=== PATIENT | female | born 1960 | race Two or more races ===

== ENCOUNTER 2017-04-14 09:52 | Outpatient (CLI) | payer MEDICARE, MEDICAID ==
[2017-04-14 10:00] VITALS: BP 131/66
[2017-04-14] MEDS ORDERED: METFORMIN HCL1000 M2 ORAL (10:55)
[2017-04-14] MEDS ORDERED: TRIHEXYPHENIDYL2 MG ORAL (10:55)
[2017-04-14] MEDS ORDERED: FLUPHENAZINE HC10 MG PO (10:55)
[2017-04-14] MEDS ORDERED: ADALAT20 MG ORAL (10:55)
[2017-04-14] MEDS ORDERED: PEPCID40 MG PO (10:55)
[2017-04-14] MEDS ORDERED: VENTOLIN HFA18 GM INH (10:55)
[2017-04-14] MEDS ORDERED: CRESTOR10 M1 ORAL (10:55)
[2017-04-14] MEDS ORDERED: OXYBUTYNIN CHLOR5 M2 PO (10:55)
[2017-04-14] MEDS ORDERED: KLONOPIN0.5 MG ORAL (10:55)
[2017-04-14] MEDS ORDERED: HYDRALAZINE HC100 MG ORAL (10:55)
[2017-04-14] MEDS ORDERED: DESVENLAFAXINE100 MG ORAL (10:55)
[2017-04-14] MEDS ORDERED: NORMODYNE200 MG ORAL (10:55)
[2017-04-14] MEDS ORDERED: GABAPENTIN300 MG ORAL (10:56)
[2017-04-14] MEDS ORDERED: DIOVAN320 MG ORAL (10:56)
--- NOTE | 2017-04-14 10:56 | GI Initial Consult Note ---
History of Present Illness General Date patient seen: Apr 14, 2017 Time patient seen: 10:41 Referring physician: FINDER Reason for Consultation: Ulcerative Colitis Present Illness HPI 57 year old female patient with history of Ulcerative colitis dx in 2002 presents today for medication rx. States she had just moved into the area and seeking a primary GI. Last colonoscopy approximately 3 years ago. She presents today with c/o of constipation vs diarrhea and episodes of rectal bleed. Denies any unintentional weight loss or changes in dietary habits. Patient is a fall risk, wheelchair use with minimal ambulation. Home Meds Reported Medications Valsartan (DIOVAN) 320 Mg Tablet, 320 MG ORAL DAILY, TAB 04/14/17 Gabapentin* (GABAPENTIN*) 300 Mg Capsule, 300 MG ORAL THREE TIMES A DAY, CAP 0 Refills 04/14/17 Labetalol HCl (Labetalol HCl) 200 Mg Tablet, 200 MG ORAL EVERY 12 HOURS, TAB 04/14/17 Metformin Hcl (METFORMIN HCL ER) 1,000 Mg Tab.er.24, 1000 MG ORAL DAILY, TAB 04/14/17 Oxybutynin Chloride (OXYBUTYNIN CHLORIDE ER) 5 Mg Tab.er.24, 5 MG PO, TAB 04/14/17 Nifedipine (Nifedipine*) 20 Mg Capsule, 90 MG ORAL EVERY 8 HOURS, CAP 04/14/17 Hydralazine Hcl* (HYDRALAZINE HCL*) 100 Mg Tablet, 100 MG ORAL EVERY 8 HOURS, TAB 04/14/17 Rosuvastatin Calcium (Crestor) 5 Mg Tablet, 10 MG ORAL DAILY, TAB 04/14/17 Famotidine (PEPCID) 40 Mg Tablet, 40 MG PO DAILY, #7 TAB 0 Refills 04/14/17 Albuterol Sulfate (VENTOLIN HFA) 18 Gm Hfa.aer.ad, 1 PUFF INH EVERY 6 HOURS, # 18 GM 0 Refills 04/14/17 Trihexyphenidyl Hcl* (ARTANE*) 2 Mg Tablet, 2 MG ORAL TWICE A DAY, TAB 04/14/17 Desvenlafaxine (DESVENLAFAXINE ER) 100 Mg Tab.er.24h, 100 MG ORAL DAILY, TAB 0 Refills 04/14/17 Fluphenazine Hcl (FLUPHENAZINE HCL) 10 Mg Tablet, 10 MG PO, TAB 04/14/17 Clonazepam* (KLONOPIN*) 0.5 Mg Tablet, 0.5 MG ORAL Q6H, #15 TAB 0 Refills 04/14/17 Allergies: Coded Allergies: Flagyl (Unverified Allergy, Severe, 04/14/17) vomiting, rash Sulfa (Sulfonamide Antibiotics) (Unverified Allergy, Severe, 04/14/17) Patient History History Provided By: Patient PMH Narrative GERD Uterine CA with hysterectomy Depression HTN Heart Disease Diverticulitis Hemorrhoids Diabetes / Epilepsy / Gout Sleep apnea Thyroid Past Surgical History: Cholecystetcomy Abdominal Hysterectomy Foot Polypectomy Family History Narrative DM Thyroid Disease HTN Social History: Reports: smoking - 1 pack daily smoker Review of Systems All Other Systems: negative except mentioned in HPI Physical Exam T 98.4 BP 131/66 P 71 93 RA WT 246.2 lbs >> denies weight loss Sp02 EP Interpretation: reviewed, normal General Appearance: well appearing, no apparent distress, alert, obese Head: normocephalic EENT: PERRL/EOMI, normal ENT inspection Neck: supple Respiratory: normal breath sounds, no respiratory distress Cardiovascular: normal rate Gastrointestinal: normal inspection, non tender, soft, normal bowel sounds, non -distended Rectal: deferred Genitourinary: no CVA tenderness Musculoskeletal: other - decreased ROM , BLE Neurologic: normal inspection, alert, oriented x3, responsive Psychiatric: normal inspection, judgement/insight normal, memory normal Skin: normal inspection, normal color, no rash, warm/dry, palpation normal, well hydrated Lymphatic: normal inspection, no adenopathy GI: Plan Problems: (1) Ulcerative colitis (2) Colonoscopy planned (3) History of colon polyps (4) HTN (hypertension) (5) Depression (6) Thyroid disease (7) Sleep apnea Plan Colonoscopy scheduled 05/06/17. - CLD & (Nulytely/Suprep/Movi-Prep) prep instructions given and acknowledged by patient. - NPO @ [place] day prior procedure explained. Rx for Lorena Carlin 145mcg Seen with Dr. Booth. Thank you for this patient referral. Ayah Woo N.P. Apr 14, 2017 10:56
[2017-04-16 10:00] VITALS: BP 131/66
== END 2017-04-14 10:25 | disposition home or self-care (01) ==
LOC: PAN 09:52
DX: K51.90 Ulcerative colitis, unspecified, without complications (principal); Z86.010 Personal history of colon polyps; I10 Essential (primary) hypertension; F32.9 Major depressive disorder, single episode, unspecified; E07.9 Disorder of thyroid, unspecified; G47.30 Sleep apnea, unspecified; Z90.710 Acquired absence of both cervix and uterus; Z85.42 Personal history of malignant neoplasm of other parts of uterus; I11.9 Hypertensive heart disease without heart failure; E11.9 Type 2 diabetes mellitus without complications; Z90.49 Acquired absence of other specified parts of digestive tract; G40.909 Epilepsy, unspecified, not intractable, without status epilepticus; K21.9 Gastro-esophageal reflux disease without esophagitis; Z88.2 Allergy status to sulfonamides; K59.00 Constipation, unspecified
CPT/HCPCS: 99201

== ENCOUNTER 2017-07-06 12:50 | Outpatient (CLI) | payer MEDICARE, MEDICAID ==
[~2017-07-06 12:50] MED LIST: ADALAT20 MG ORAL; CRESTOR10 M1 ORAL; DESVENLAFAXINE100 MG ORAL; DIOVAN320 MG ORAL; FLUPHENAZINE HC10 MG PO; GABAPENTIN300 MG ORAL; HYDRALAZINE HC100 MG ORAL; KLONOPIN0.5 MG ORAL; METFORMIN HCL1000 M2 ORAL; NORMODYNE200 MG ORAL; OXYBUTYNIN CHLOR5 M2 PO; PEPCID40 MG PO; TRIHEXYPHENIDYL2 MG ORAL; VENTOLIN HFA18 GM INH
--- NOTE | 2017-07-06 13:49 | GI Progress Note ---
Assessment/Plan Problems: (1) Colonoscopy planned SNOMED: 516475506 (2) Ulcerative colitis ICD Codes: K51.90 - Ulcerative colitis, unspecified, without complications SNOMED: 45831292 (3) Sleep apnea ICD Codes: G47.30 - Sleep apnea, unspecified SNOMED: 21258577 (4) HTN (hypertension) ICD Codes: I10 - Essential (primary) hypertension SNOMED: 00013619 Status: stable Status Narrative Seen with Dr. Booth. Assessment/Plan Colonoscopy rescheduled for 07/24/17. - CLD & (Nulytely/Suprep/Movi-Prep) prep instructions given and acknowledged by patient. - NPO @ [place] day prior procedure explained. Rx Linzess 72mcg daily The patient was seen and examined at bedside and all new and available data was reviewed in the patients chart. I agree with the above findings, impression and plan. (Patient seen earlier today. Signature stamp does not reflect patient encounter time.). - Miguel Booth MD Subjective Subjective abdominal pain has improved patient moving bowels fine colonoscopy was cancelled due to no transportation Objective T 98.4 BP 126/64 P 75 92 RA General Appearance: WD/WN, no apparent distress, alert Cardiovascular: normal rate Respiratory/Chest: normal breath sounds, no respiratory distress Abdominal Exam: normal bowel sounds, non tender, soft Extremities: normal range of motion, non-tender Юлия Woo NP July 06, 2017 13:49
[2017-07-06 15:17] VITALS: BP 126/64
== END 2017-07-06 13:20 | disposition home or self-care (01) ==
LOC: PAN 12:50
DX: K51.90 Ulcerative colitis, unspecified, without complications (principal); G47.30 Sleep apnea, unspecified; I10 Essential (primary) hypertension
CPT/HCPCS: 99211

== ENCOUNTER 2017-09-14 12:59 | Outpatient (CLI) | payer MEDICARE, MEDICAID ==
[~2017-09-14 12:59] MED LIST changes: +APRISO0.375 GM PO; +ESTRADIOL1 M1 PO; +LINZESS145 MCG PO
[2017-09-14 13:15] VITALS: BP 121/61
--- NOTE | 2017-09-14 15:49 | GI Progress Note ---
Assessment/Plan Problems: (1) Ulcerative colitis ICD Codes: K51.90 - Ulcerative colitis, unspecified, without complications SNOMED: 56974216 (2) History of colon polyps ICD Codes: Z86.010 - Personal history of colonic polyps SNOMED: 167094205 (3) Depression ICD Codes: F32.9 - Major depressive disorder, single episode, unspecified SNOMED: 35988303 (4) HTN (hypertension) ICD Codes: I10 - Essential (primary) hypertension SNOMED: 49315250 Status: unchanged Status Narrative Discussed with Dr. Booth. Assessment/Plan SUMMARY OF FINDINGS reviewed with patient: 1. Poor colonoscopy examination. 2. Two colonic polyps removed, see above for details. 3. Diverticulosis. RECOMMENDATIONS: Follow up pathology. >> negative for H. Pylori Rx Apriso RTC x 1 month, will consider repeat colonoscopy given poor prep The patient was seen and examined at bedside and all new and available data was reviewed in the patients chart. I agree with the above findings, impression and plan. (Patient seen earlier today. Signature stamp does not reflect patient encounter time.). - Miguel Booth MD Subjective Subjective constipation Objective Last 24 Hour Vital Signs Date Time Temp Pulse Resp B/P (MAP) Pulse Ox O2 Delivery O2 Flow Rate FiO2 09/14/17 13:15 78 121/61 92 General Appearance: WD/WN, no apparent distress, alert Cardiovascular: normal rate Respiratory/Chest: normal breath sounds, no respiratory distress Abdominal Exam: normal bowel sounds, non tender, soft Extremities: normal range of motion, non-tender Юлия Woo [employer] Sep 14, 2017 15:49
== END 2017-09-14 13:35 | disposition home or self-care (01) ==
LOC: PAN 12:59
DX: K51.90 Ulcerative colitis, unspecified, without complications (principal); Z86.010 Personal history of colon polyps; F32.9 Major depressive disorder, single episode, unspecified; I10 Essential (primary) hypertension; K57.90 Diverticulosis of intestine, part unspecified, without perforation or abscess without bleeding
CPT/HCPCS: 99213

== ENCOUNTER 2017-10-02 11:42 | Emergency (ER) | payer MEDICARE, MEDICAID ==
[~2017-10-02] VITALS: Ht 162.6 cm; Wt 81.6 kg
[2017-10-02 12:00] VITALS: BP 137/66
[2017-10-02] MEDS ORDERED: APRISO0.375 GM PO (12:06)
[2017-10-02] MEDS ORDERED: NIFEDIPINE ER90 M3 ORAL (12:31)
[2017-10-02] MEDS ORDERED: HYDROCORTISONE30 G2 TP (12:35)
[2017-10-02] MEDS ORDERED: SPIRIVA18 MCG INH (12:35)
[2017-10-02] MEDS ORDERED: HYDROCODON-ACE1 EA15 ORAL (12:35)
[2017-10-02 13:06] LABS: BASOPHILS % (AUTO) 1.2 % (0.0-2.0); HEMATOCRIT 39.8 % (37.0-47.0); HEMOGLOBIN 13.5 G/DL (12.0-16.0); LYMPHOCYTES % (AUTO) 31.8 % (20.0-45.0); MEAN CORPUSCULAR VOLUME 90 FL (80-99); MONOCYTES % (AUTO) 9.6 % (1.0-10.0); NEUTROPHILS % (AUTO) 55.3 % (45.0-75.0); PLATELET COUNT 258 K/UL (150-450); RED BLOOD COUNT 4.42 M/UL (4.20-5.40); RED CELL DISTRIBUTION WIDTH 11.2 % (11.6-14.8); WHITE BLOOD COUNT 8.2 K/UL (4.8-10.8)
[2017-10-02 13:11] LABS: ANION GAP 8 mmol/L (5-15); BLOOD UREA NITROGEN 5 mg/dL (7-18); CALCIUM 9.2 MG/DL (8.5-10.1); CARBON DIOXIDE 26 MMOL/L (21-32); CHLORIDE 100 MMOL/L (98-107); CREATININE 0.7 MG/DL (0.55-1.30); POTASSIUM 3.6 MMOL/L (3.5-5.1); SODIUM 134 MMOL/L (136-145)
[2017-10-02 13:15] LABS: ALANINE AMINOTRANSFERASE 26 U/L (12-78); ALBUMIN 4.1 G/DL (3.4-5.0); ALBUMIN/GLOBULIN RATIO 1.3 (1.0-2.7); ALKALINE PHOSPHATASE 68 U/L (46-116); ASPARTATE AMINO TRANSFERASE 14 U/L (15-37); BILIRUBIN,TOTAL 0.3 MG/DL (0.2-1.0)
[2017-10-02 13:34] VITALS: BP 152/76
[2017-10-02] MEDS ORDERED: PREDNISONE20 MG ORAL (13:51)
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
[2017-10-02 16:16] VITALS: BP 148/91
--- NOTE | 2017-10-04 18:43 | Cardiology Report ---
APPROVED REPORT EKG Measurement Heart [id number] Normal sinus rhythm Left bundle branch block Abnormal ECG
== END 2017-10-02 16:16 | disposition home or self-care (01) ==
LOC: EDBD 11:42 → EDUNIT# 11:42 → EMR 12:45
DX: R21 Rash and other nonspecific skin eruption (principal); Z88.8 Allergy status to other drugs, medicaments and biological substances; Z88.2 Allergy status to sulfonamides; F17.200 Nicotine dependence, unspecified, uncomplicated; I10 Essential (primary) hypertension; J44.9 Chronic obstructive pulmonary disease, unspecified; E11.9 Type 2 diabetes mellitus without complications; Z85.42 Personal history of malignant neoplasm of other parts of uterus; F32.9 Major depressive disorder, single episode, unspecified; I44.7 Left bundle-branch block, unspecified
CPT/HCPCS: 36415; 80053; 85025; 93005; 99283; J7512

== ENCOUNTER 2017-11-25 13:58 | Inpatient (IN) | payer MEDICARE, MEDICAID ==
[~2017-11-25] VITALS: Ht 172.7 cm; Wt 104.3 kg
[~2017-11-25 13:58] MED LIST changes: +HYDROCODON-ACE1 EA15 ORAL; +HYDROCORTISONE30 G2 TP; +NIFEDIPINE ER90 M3 ORAL; +PREDNISONE20 MG ORAL; +SPIRIVA18 MCG INH
[2017-11-25] MEDS ORDERED: APRISO0.375 GM PO (14:08)
[2017-11-25] MEDS ORDERED: Albuterol ud Inhalation HHN ONE (14:15)
[2017-11-25] MEDS ORDERED: Solu-MEDROL 125mg Inj IVP ONE (14:15)
[2017-11-25] MEDS ORDERED: Ipratropium 0.02% Inh Soln 2.5ml UD HHN ONE (14:15)
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
[2017-11-25 14:45] LABS: EOSINOPHILS % (AUTO) 2.4 % (0.0-3.0); HEMATOCRIT 40.3 % (37.0-47.0); HEMOGLOBIN 13.3 G/DL (12.0-16.0); LYMPHOCYTES % (AUTO) 19.4 % (20.0-45.0); MEAN CORPUSCULAR VOLUME 90 FL (80-99); MONOCYTES % (AUTO) 11.7 % (1.0-10.0); NEUTROPHILS % (AUTO) 65.5 % (45.0-75.0); PLATELET COUNT 248 K/UL (150-450); RED CELL DISTRIBUTION WIDTH 10.8 % (11.6-14.8)
[2017-11-25] MEDS ORDERED: Ipratropium 0.02% Inh Soln 2.5ml UD ONE (14:55)
[2017-11-25] MEDS ORDERED: Levalbuterol Inh UD 1.25mg/0.5ml HHN ONE (15:00)
[2017-11-25 15:03] LABS: ANION GAP 8 mmol/L (5-15); BLOOD UREA NITROGEN 7 mg/dL (7-18); CALCIUM 8.8 MG/DL (8.5-10.1); CARBON DIOXIDE 26 MMOL/L (21-32); CHLORIDE 101 MMOL/L (98-107); CREATININE 0.7 MG/DL (0.55-1.30); POTASSIUM 3.7 MMOL/L (3.5-5.1); SODIUM 135 MMOL/L (136-145)
[2017-11-25 15:06] VITALS: BP 130/82
[2017-11-25 15:14] LABS: ALANINE AMINOTRANSFERASE 29 U/L (12-78); ALBUMIN 3.6 G/DL (3.4-5.0); ALKALINE PHOSPHATASE 74 U/L (46-116); ASPARTATE AMINO TRANSFERASE 17 U/L (15-37); BILIRUBIN,TOTAL 0.2 MG/DL (0.2-1.0)
--- NOTE | 2017-11-25 15:27 | Diagnostic Imaging Report ---
Indication: Reason For Exam: COUGH Technique: One view of the chest Comparison: none Findings: Suboptimal inspiration. There is crowding of the bronchovascular markings. No definite acute infiltrates, effusions, or congestion. Normal heart size Impression: Hypoventilatory exam. No definite acute process
[2017-11-25] MEDS ORDERED: cefTRIAXone 1 GM in NS 55 ML IVPB ONE (15:45)
[2017-11-25 16:56] VITALS: BP 129/67
[2017-11-25 20:00] VITALS: BP 152/75
[2017-11-25] MEDS ORDERED: Acetaminophen 500mg (ES) tab ORAL PRN (20:30)
[2017-11-25] MEDS ORDERED: Albuterol/Ipratropium 3ml neb HHN PRN (20:30)
[2017-11-25] MEDS: NovoLOG Insulin Flexpen SUBQ SCH (22:24)
[2017-11-25] MEDS: Heparin 5000 units/ml inj SUBQ SCH (22:27)
[2017-11-25] MEDS: Norco 5mg/325mg tab ORAL PRN (22:37)
[2017-11-26] VITALS: BP 143/67
[2017-11-26 04:00] VITALS: BP 137/83
[2017-11-26] MEDS: NovoLOG Insulin Flexpen SUBQ SCH ×4 (06:13→21:00)
[2017-11-26 08:00] VITALS: BP 142/66
[2017-11-26] MEDS: Trihexyphenidyl 2mg tab ORAL SCH ×3 (08:41→17:55)
[2017-11-26] MEDS: Oxybutynin 5mg tab ORAL SCH ×2 (08:42→17:55)
[2017-11-26] MEDS: clonazePAM 0.5mg tab ORAL SCH ×3 (08:42→17:56)
[2017-11-26] MEDS: Norco 5mg/325mg tab ORAL PRN ×3 (08:43→22:56)
[2017-11-26] MEDS: Labetalol 200mg tab ORAL SCH ×2 (08:44→17:55)
[2017-11-26] MEDS: HydrALAZINE 50mg tab ORAL SCH ×3 (08:44→17:56)
[2017-11-26] MEDS: metFORMIN 500mg tab ORAL SCH ×2 (08:45→18:01)
[2017-11-26] MEDS: Heparin 5000 units/ml inj SUBQ SCH ×2 (08:52→21:37)
[2017-11-26] MEDS ORDERED: Irbesartan 150mg tablet ORAL SCH (09:00)
[2017-11-26 12:00] VITALS: BP 148/75
[2017-11-26 16:00] VITALS: BP 142/81
[2017-11-26] MEDS ORDERED: cefTRIAXone 1 GM in D5W 55 ML IVPB SCH (16:00)
[2017-11-26 20:00] VITALS: BP 130/56
--- NOTE | 2017-11-26 23:30 | Consultation ---
History of Present Illness General Chief Complaint: Upper Respiratory Illness Present Illness HPI 57-year-old female from a [facility] and [facility]. The patient presented to the emergency department complaining of shortness of breath. the pt has hx of depression and anxiety poor appetite. the pt is on klonopine and reluctant to take meds Allergies: Coded Allergies: METRONIDAZOLE (Unverified Allergy, Severe, 04/14/17) vomiting, rash SULFA (SULFONAMIDE ANTIBIOTICS) (Unverified Allergy, Severe, 07/24/17) RASH ALL OVER THE BODY, SWELLING SULFAMETHOXAZOLE (Unverified Allergy, Unknown, 11/25/17) TRIMETHOPRIM (Unverified Allergy, Unknown, 11/25/17) Medication History Scheduled Albuterol Sulfate (Ventolin Hfa), 1 PUFF INH EVERY 6 HOURS, (Reported) Clonazepam* (Klonopin*), 0.5 MG ORAL TID, (Reported) Desvenlafaxine (Desvenlafaxine Er), 150 MG ORAL DAILY, (Reported) Estradiol (Estradiol), 1 MG PO DAILY, (Reported) Famotidine (Pepcid), 40 MG PO DAILY, (Reported) Fluphenazine Hcl (Fluphenazine Hcl), 5 MG PO BID, (Reported) Fluphenazine Hcl (Fluphenazine Hcl), 10 MG PO TID, (Reported) Gabapentin* (Gabapentin*), 300 MG ORAL BID, (Reported) Hydralazine Hcl* (Hydralazine Hcl*), 100 MG ORAL TID, (Reported) Hydrocortisone (Hydrocortisone Cream 2.5%), 1 APPLIC TP BID, (Reported) Labetalol HCl (Labetalol HCl), 600 MG ORAL EVERY 12 HOURS, (Reported) Linaclotide (Linzess), 145 MCG PO DAILY, (Reported) Mesalamine (Apriso), 0.375 GM PO DAILY, (Reported) Mesalamine (Apriso), 1.5 GM PO DAILY, (Reported) Metformin Hcl (Metformin Hcl Er), 1,000 MG ORAL BID, (Reported) Nifedipine (Nifedipine*), 90 MG ORAL DAILY, (Reported) Nifedipine Er* (Nifedipine Er*), 90 MG ORAL DAILY, (Reported) Oxybutynin Chloride (Oxybutynin Chloride Er), 5 MG PO BID, (Reported) Prednisone* (Prednisone*), 40 MG ORAL DAILY Rosuvastatin Calcium (Crestor), 5 MG ORAL BEDTIME, (Reported) Tiotropium [place]* (Spiriva*), 1 PUFF INH DAILY, (Reported) Trihexyphenidyl Hcl* (Artane*), 2 MG ORAL TID, (Reported) Valsartan (Diovan), 320 MG ORAL DAILY, (Reported) Scheduled PRN Hydrocodone/Acetaminophen 5-325* (Hydrocodone/Acetaminophen 5-325*), 1 TAB ORAL Q6H PRN for For Pain, (Reported) Miscellaneous Medications Mesalamine (Apriso), 0.375 GM PO, (Reported) Patient History Limited by: medical condition History Provided By: Patient, Medical Record Healthcare decision maker refused to provide info Resuscitation status Full Code Advanced Directive on File Past Medical/Surgical History Past Medical/Surgical History: (1) Thyroid disease (2) Sleep apnea (3) Colonoscopy planned (4) Ulcerative colitis (5) Depression (6) HTN (hypertension) (7) History of colon polyps (8) Rash Review of Systems Psychiatric: Reports: prior hx, anxiety, depressed feelings, emotional problems Physical Exam General Appearance: no apparent distress, alert Neurologic: oriented x 3, responsive, depressed affect Last 24 Hour Vital Signs Date Time Temp Pulse Resp B/P (MAP) Pulse Ox O2 Delivery O2 Flow Rate FiO2 11/26/17 21:00 Nasal Cannula 2.0 11/26/17 20:39 73 11/26/17 20:00 98.1 74 20 130/56 (80) 97 98.1 11/26/17 19:44 84 18 Nasal Cannula 2.0 11/26/17 17:56 142/81 11/26/17 17:55 85 142/81 11/26/17 17:08 98.0 11/26/17 16:38 98.0 11/26/17 16:00 98.0 79 20 142/81 (101) 98 98.0 11/26/17 16:00 85 11/26/17 13:08 148/75 11/26/17 12:00 76 11/26/17 12:00 97.8 79 20 148/75 (99) 98 97.8 11/26/17 09:48 71 18 98 Room Air 21 11/26/17 09:44 71 18 98 Room Air 21 11/26/17 09:00 Nasal Cannula 2.0 11/26/17 08:44 142/66 11/26/17 08:44 67 142/66 11/26/17 08:44 67 142/66 11/26/17 08:43 142/66 11/26/17 08:43 97.3 11/26/17 08:00 97.3 67 20 142/66 (91) 98 97.3 11/26/17 08:00 75 20 Nasal Cannula 2.0 11/26/17 08:00 94 11/26/17 04:00 79 11/26/17 04:00 98.4 66 20 137/83 (101) 97 98.4 11/26/17 00:00 96 11/26/17 00:00 97.4 96 19 143/67 (92) 96 97.4 Intake and Output 11/25/17 11/26/17 19:00 07:00 Intake Total 55 ml Balance 55 ml IV Total 55 ml # Voids 2 Height (Feet): 5 Height (Inches): 8.00 Weight (Pounds): 230 Medications Current Medications Medications (Trade) Dose Ordered Sig/Bogdan Route PRN Reason Start Time Stop Time Status Last Admin Dose Admin Acetaminophen (Tylenol) 500 mg Q6H PRN ORAL Mild Pain (Pain Scale 1-3) 11/25/17 20:30 12/25/17 20:29 11/26/17 20:12 Acetaminophen/ Hydrocodone Bitart (Sterling 5/325) 1 tab Q6H PRN ORAL Moderate Pain (Pain Scale 4-6) 11/25/17 20:30 12/02/17 20:29 11/26/17 22:56 Albuterol/ Ipratropium (Albuterol/ Ipratropium) 3 ml Q6H PRN HHN Shortness of Breath 11/25/17 20:30 11/30/17 20:29 Atorvastatin Calcium (Lipitor) 10 mg BEDTIME ORAL 11/26/17 21:00 12/26/17 20:59 11/26/17 21:36 Ceftriaxone Sodium 1 gm/ Dextrose 55 ml @ 110 mls/hr Q24H IVPB 11/26/17 16:00 12/03/17 15:59 11/26/17 16:38 Clonazepam (KlonoPIN) 0.5 mg TID ORAL 11/26/17 09:00 12/03/17 08:59 11/26/17 17:56 Dextrose (Dextrose 50%) 25 ml Q30M PRN IV Hypoglycemia 11/25/17 20:30 12/25/17 20:29 Dextrose (Dextrose 50%) 50 ml Q30M PRN IV Hypoglycemia 11/25/17 20:30 12/25/17 20:29 Famotidine (Pepcid) 20 mg DAILY ORAL 11/26/17 09:00 12/26/17 08:59 11/26/17 08:41 Fluphenazine HCl (Prolixin) 5 mg DAILY ORAL 11/26/17 09:00 12/26/17 08:59 11/26/17 08:42 Fluphenazine HCl (Prolixin) 15 mg BEDTIME ORAL 11/26/17 21:00 12/26/17 20:59 11/26/17 21:35 Gabapentin (Neurontin) 300 mg BID ORAL 11/26/17 09:00 12/26/17 08:59 11/26/17 17:55 Heparin Sodium (Porcine) (Heparin 5000 units/ml) 5,000 units EVERY 12 HOURS SUBQ 11/25/17 21:00 12/25/17 20:59 11/26/17 21:37 Hydralazine HCl (Apresoline) 100 mg TID ORAL 11/26/17 09:00 12/26/17 08:59 11/26/17 17:56 Insulin Aspart (NovoLOG) BEFORE MEALS AND HS SUBQ 11/25/17 21:00 12/25/17 20:59 11/26/17 17:58 Irbesartan (Avapro) 300 mg DAILY ORAL 11/26/17 09:00 12/26/17 08:59 11/26/17 08:43 Labetalol HCl (Normodyne) 600 mg BID ORAL 11/26/17 09:00 12/26/17 08:59 11/26/17 17:55 Metformin HCl (Glucophage) 1,000 mg BID ORAL 11/26/17 09:00 12/26/17 08:59 11/26/17 18:01 Nifedipine (Procardia XL) 90 mg DAILY ORAL 11/26/17 09:00 12/26/17 08:59 11/26/17 08:44 Ondansetron HCl (Zofran) 4 mg Q6H PRN IVP Nausea & Vomiting 11/25/17 20:30 12/25/17 20:29 Oxybutynin Chloride (Ditropan) 5 mg BID ORAL 11/26/17 09:00 12/26/17 08:59 11/26/17 17:55 Tiotropium [place] (Spiriva Inhaler) 1 puff DAILY INH 11/26/17 09:00 12/26/17 08:59 11/26/17 09:44 Trihexyphenidyl HCl (Artane) 2 mg TID ORAL 11/26/17 09:00 12/26/17 08:59 11/26/17 17:55 Assessment/Plan Assessment/Plan mdd anxiety d/o klonopin reluctant to take ssri no si/Dion Sanchez MD Nov 26, 2017 23:30
--- NOTE | 2017-11-26 23:30 | History and Physical Report ---
DATE OF ADMISSION: 11/25/2017 CHIEF COMPLAINT: Shortness of breath. HISTORY OF PRESENT ILLNESS: This is a 57-year-old female from a [facility]. The patient presented to the emergency department complaining of shortness of breath. The patient has a history of obesity and COPD. The patient is a heavy cigarette smoker. The patient cannot focus. She has multiple complaints. She is a diffuse historian and she is spreading all over the place with different complaints. PAST MEDICAL HISTORY: 1. Psychosis. 2. Chronic obstructive pulmonary disease. 3. Obesity. 4. Polypharmacy. 5. Low back pain. 6. Type 2 diabetes mellitus. 7. Hypertension. MEDICATIONS: Cowen as needed, clonazepam, Linzess, famotidine, rosuvastatin, hydralazine, nifedipine XR, oxybutynin, metformin, labetalol, Neurontin, valsartan, fluphenazine, desvenlafaxine, Spiriva, Apriso, estradiol, trihexyphenidyl, Ventolin HFA. ALLERGIES: To multiple agents including metronidazole, sulfonamides. FAMILY HISTORY: Unremarkable. SOCIAL HISTORY: She lives in a [facility]. HABITS: She is a heavy cigarette smoker. REVIEW OF SYSTEMS: HEENT: Hearing and eyesight are normal. ENDOCRINE: Significant for morbid obesity, type 2 diabetes mellitus. NEUROLOGICAL: No history of stroke, syncope, Parkinson disease. MUSCULOSKELETAL: She has low back pain and degenerative joint disease. PHYSICAL EXAMINATION: GENERAL: This is an elderly female who is in no acute distress. VITAL SIGNS: Blood pressure 140/80, pulse 80 regular, respirations 20, and temperature 98. HEENT: Head is normocephalic and atraumatic. Pupils are equal, round, and reactive to light and accommodation consensually. NECK: Supple. Trachea midline. There was no lymphadenopathy or thyromegaly. LUNGS: Clear to auscultation and percussion. HEART: Regular rate and rhythm without rubs, murmurs, or gallops. ABDOMEN: Soft and nontender. Bowel sounds were active. EXTREMITIES: No clubbing, cyanosis, or edema. NEUROLOGIC: She is alert and oriented x4. Cranial nerves II through XII intact. LABORATORY AND ANCILLARY DATA: CBC shows white count 12,000, otherwise CBC within normal limits. Serum chemistry, glucose is 126, otherwise within normal limits. Troponin level 0. Chest x-ray, hypoventilatory exam, no acute disease. ASSESSMENT: 1. Chronic obstructive pulmonary disease exacerbation. 2. Psychosis. 3. Obesity. 4. Polypharmacy. 5. Low back pain. 6. Type 2 diabetes mellitus. 7. Hypertension. PLAN: 1. Bronchodilators. 2. Intravenous antibiotics. 3. Continue home medications. Mansi Gentile M.D. DR: Jose JOB#: [id number] CC:
[2017-11-27] VITALS: BP 142/71
[2017-11-27 04:00] VITALS: BP 132/75
[2017-11-27] MEDS: NovoLOG Insulin Flexpen SUBQ SCH ×4 (06:30→20:15)
[2017-11-27] MEDS: Norco 5mg/325mg tab ORAL PRN ×3 (06:36→18:59)
[2017-11-27 08:00] VITALS: BP 130/67
[2017-11-27] MEDS ORDERED: Albuterol/Ipratropium 3ml neb HHN PRN (08:15)
[2017-11-27] MEDS: Oxybutynin 5mg tab ORAL SCH ×2 (08:37→17:17)
[2017-11-27] MEDS: Trihexyphenidyl 2mg tab ORAL SCH ×3 (08:37→17:20)
[2017-11-27] MEDS: clonazePAM 0.5mg tab ORAL SCH ×3 (08:37→17:20)
[2017-11-27] MEDS: Irbesartan 150mg tablet ORAL SCH (08:38)
[2017-11-27] MEDS: HydrALAZINE 50mg tab ORAL SCH ×3 (08:39→17:19)
[2017-11-27] MEDS: Labetalol 200mg tab ORAL SCH ×2 (08:39→17:19)
[2017-11-27] MEDS: metFORMIN 500mg tab ORAL SCH ×2 (08:39→17:17)
[2017-11-27] MEDS: Heparin 5000 units/ml inj SUBQ SCH ×2 (08:40→21:41)
--- NOTE | 2017-11-27 11:09 | General Progress Note ---
Assessment/Plan Assessment/Plan COPD Exacerbation - bronchodil., IV Abx. Schizophrenia - Per Psych Subjective Allergies: Coded Allergies: METRONIDAZOLE (Unverified Allergy, Severe, 04/14/17) vomiting, rash SULFA (SULFONAMIDE ANTIBIOTICS) (Unverified Allergy, Severe, 07/24/17) RASH ALL OVER THE BODY, SWELLING SULFAMETHOXAZOLE (Unverified Allergy, Unknown, 11/25/17) TRIMETHOPRIM (Unverified Allergy, Unknown, 11/25/17) Subjective Still coughing +SOB. Objective Last 24 Hour Vital Signs Date Time Temp Pulse Resp B/P (MAP) Pulse Ox O2 Delivery O2 Flow Rate FiO2 11/27/17 08:47 71 18 Room Air 21 11/27/17 08:39 79 130/67 11/27/17 08:39 130/67 11/27/17 08:38 130/67 11/27/17 08:37 79 130/67 11/27/17 08:00 98.7 79 20 130/67 (88) 96 98.7 11/27/17 04:00 97.7 59 20 132/75 (94) 97 97.7 11/27/17 03:37 63 11/27/17 00:00 98.2 71 20 142/71 (94) 96 98.2 11/26/17 23:53 67 11/26/17 21:00 Nasal Cannula 2.0 11/26/17 20:39 73 11/26/17 20:00 98.1 74 20 130/56 (80) 97 98.1 11/26/17 19:44 84 18 Nasal Cannula 2.0 11/26/17 17:56 142/81 11/26/17 17:55 85 142/81 11/26/17 17:08 98.0 11/26/17 16:38 98.0 11/26/17 16:00 98.0 79 20 142/81 (101) 98 98.0 11/26/17 16:00 85 11/26/17 13:08 148/75 11/26/17 12:00 76 11/26/17 12:00 97.8 79 20 148/75 (99) 98 97.8 Intake and Output 11/26/17 11/27/17 19:00 07:00 Intake Total 960 ml 340 ml Balance 960 ml 340 ml Intake Oral 960 ml 340 ml # Voids 2 Height (Feet): 5 Height (Inches): 8.00 Weight (Pounds): 230 Objective Morbidly obese. CV RR Lungs B wheezes. Abd SNT. BS + E No CCE. Mansi Gentile MD Nov 27, 2017 11:09
[2017-11-27 12:00] VITALS: BP 150/82
[2017-11-27] MEDS: Lactulose 20gm/30ml UDC ORAL PRN (12:47)
--- NOTE | 2017-11-27 15:33 | Cardiology Report ---
APPROVED REPORT EKG Measurement Heart [id number] Normal sinus rhythm Left bundle branch block Abnormal ECG
[2017-11-27 16:00] VITALS: BP 139/78
[2017-11-27] MEDS: cefTRIAXone 1 GM in D5W 55 ML IVPB SCH (17:17)
[2017-11-27 23:35] VITALS: BP 150/79
[2017-11-28] MEDS: Norco 5mg/325mg tab ORAL PRN ×4 (01:07→20:34)
[2017-11-28 04:00] VITALS: BP 152/77
[2017-11-28] MEDS: NovoLOG Insulin Flexpen SUBQ SCH ×4 (05:34→20:33)
[2017-11-28 08:00] VITALS: BP 152/86
[2017-11-28] MEDS: Trihexyphenidyl 2mg tab ORAL SCH ×3 (08:49→18:02)
[2017-11-28] MEDS: HydrALAZINE 50mg tab ORAL SCH ×3 (08:49→18:02)
[2017-11-28] MEDS: Oxybutynin 5mg tab ORAL SCH ×2 (08:50→18:03)
[2017-11-28] MEDS: metFORMIN 500mg tab ORAL SCH ×2 (08:50→18:03)
[2017-11-28] MEDS: clonazePAM 0.5mg tab ORAL SCH ×3 (08:50→18:03)
[2017-11-28] MEDS: Irbesartan 150mg tablet ORAL SCH (08:50)
[2017-11-28] MEDS: Labetalol 200mg tab ORAL SCH ×2 (08:51→18:03)
[2017-11-28] MEDS: Heparin 5000 units/ml inj SUBQ SCH ×2 (08:53→20:36)
--- NOTE | 2017-11-28 10:33 | General Progress Note ---
Assessment/Plan Assessment/Plan COPD Exacerbation - bronchodilators, IV Abx. Schizophrenia - Per Psych Subjective Allergies: Coded Allergies: METRONIDAZOLE (Unverified Allergy, Severe, 04/14/17) vomiting, rash SULFA (SULFONAMIDE ANTIBIOTICS) (Unverified Allergy, Severe, 07/24/17) RASH ALL OVER THE BODY, SWELLING SULFAMETHOXAZOLE (Unverified Allergy, Unknown, 11/25/17) TRIMETHOPRIM (Unverified Allergy, Unknown, 11/25/17) Subjective Still coughing +SOB. Objective Last 24 Hour Vital Signs Date Time Temp Pulse Resp B/P (MAP) Pulse Ox O2 Delivery O2 Flow Rate FiO2 11/28/17 08:52 72 152/86 11/28/17 08:51 72 152/86 11/28/17 08:50 152/86 11/28/17 08:49 152/86 11/28/17 08:01 Room Air 11/28/17 04:00 97.2 67 18 152/77 (102) 96 97.2 11/27/17 23:40 Room Air 11/27/17 23:35 97.7 71 20 150/79 (102) 94 97.7 11/27/17 17:19 63 139/78 11/27/17 17:19 139/78 11/27/17 16:00 97.7 63 20 139/78 (98) 96 97.7 11/27/17 12:47 150/82 11/27/17 12:00 98.2 68 18 150/82 (104) 95 98.2 Intake and Output 11/27/17 11/28/17 19:00 07:00 Intake Total 620 ml Balance 620 ml Intake Oral 620 ml # Voids 4 # Bowel Movements 2 Height (Feet): 5 Height (Inches): 8.00 Weight (Pounds): 230 Objective Morbidly obese. CV RR Lungs B wheezes. Abd SNT. BS + E No CCE. Mansi Gentile MD Nov 28, 2017 10:33
[2017-11-28 12:00] VITALS: BP 167/64
[2017-11-28 16:00] VITALS: BP 148/88
[2017-11-28] MEDS: cefTRIAXone 1 GM in D5W 55 ML IVPB SCH (16:29)
[2017-11-28 20:00] VITALS: BP 136/79
[2017-11-29] VITALS (8 sets, daily range): BP systolic 130–165; BP diastolic 68–87
[2017-11-29] MEDS: Acetaminophen 500mg (ES) tab ORAL PRN (00:53)
[2017-11-29] MEDS: Norco 5mg/325mg tab ORAL PRN ×4 (02:59→23:47)
[2017-11-29] MEDS: NovoLOG Insulin Flexpen SUBQ SCH ×4 (06:37→21:47)
[2017-11-29] MEDS: Trihexyphenidyl 2mg tab ORAL SCH ×3 (08:30→18:15)
[2017-11-29] MEDS: Irbesartan 150mg tablet ORAL SCH (08:31)
[2017-11-29] MEDS: Oxybutynin 5mg tab ORAL SCH ×2 (08:32→18:13)
[2017-11-29] MEDS: metFORMIN 500mg tab ORAL SCH ×2 (08:32→18:12)
[2017-11-29] MEDS: clonazePAM 0.5mg tab ORAL SCH ×3 (08:32→18:16)
[2017-11-29] MEDS: HydrALAZINE 50mg tab ORAL SCH ×3 (08:32→18:16)
[2017-11-29] MEDS: Labetalol 200mg tab ORAL SCH ×2 (08:33→18:12)
[2017-11-29] MEDS: Heparin 5000 units/ml inj SUBQ SCH ×2 (08:34→21:47)
--- NOTE | 2017-11-29 09:43 | General Progress Note ---
Assessment/Plan Assessment/Plan COPD Exacerbation - bronchodilators, IV Abx. Schizophrenia - Per Psych Subjective Allergies: Coded Allergies: METRONIDAZOLE (Unverified Allergy, Severe, 04/14/17) vomiting, rash SULFA (SULFONAMIDE ANTIBIOTICS) (Unverified Allergy, Severe, 07/24/17) RASH ALL OVER THE BODY, SWELLING SULFAMETHOXAZOLE (Unverified Allergy, Unknown, 11/25/17) TRIMETHOPRIM (Unverified Allergy, Unknown, 11/25/17) Subjective Still coughing +SOB. Objective Last 24 Hour Vital Signs Date Time Temp Pulse Resp B/P (MAP) Pulse Ox O2 Delivery O2 Flow Rate FiO2 11/29/17 08:53 97.0 11/29/17 08:49 85 18 95 Room Air 21 11/29/17 08:49 85 18 Room Air 21 11/29/17 08:49 85 15 95 Room Air 21 11/29/17 08:33 73 165/87 11/29/17 08:32 165/87 11/29/17 08:31 165/87 11/29/17 08:30 73 165/87 11/29/17 04:00 97.0 65 18 148/84 (105) 96 97.0 11/29/17 03:29 97.8 11/29/17 02:59 97.8 11/29/17 01:23 97.8 11/29/17 00:53 97.8 11/29/17 00:00 96.7 68 19 143/75 (97) 98 96.7 11/28/17 21:00 Room Air 11/28/17 20:34 97.8 11/28/17 20:00 97.2 69 21 136/79 (98) 99 97.2 11/28/17 19:22 79 18 Room Air 21 11/28/17 18:03 72 148/88 11/28/17 18:02 148/88 11/28/17 16:00 97.8 74 18 148/88 (108) 94 97.8 11/28/17 12:13 168/74 11/28/17 12:00 98.3 76 18 167/64 (98) 94 98.3 Intake and Output 11/28/17 11/29/17 19:00 07:00 Intake Total 950 ml 1920 ml Balance 950 ml 1920 ml Intake Oral 950 ml 1920 ml # Voids 5 9 Height (Feet): 5 Height (Inches): 8.00 Weight (Pounds): 230 Objective Morbidly obese. CV RR Lungs B wheezes. Abd SNT. BS + E No CCE. Mansi Gentile MD Nov 29, 2017 09:43
[2017-11-29] MEDS: Lactulose 20gm/30ml UDC ORAL PRN (10:34)
[2017-11-29] MEDS: cefTRIAXone 1 GM in D5W 55 ML IVPB SCH (15:02)
[2017-11-30 04:00] VITALS: BP 137/77
[2017-11-30] MEDS: Norco 5mg/325mg tab ORAL PRN ×2 (06:12→13:18)
[2017-11-30] MEDS: NovoLOG Insulin Flexpen SUBQ SCH ×3 (06:14→16:30)
[2017-11-30 08:00] VITALS: BP 152/80
[2017-11-30] MEDS: metFORMIN 500mg tab ORAL SCH ×2 (08:18→17:40)
[2017-11-30] MEDS: Oxybutynin 5mg tab ORAL SCH ×2 (08:19→17:40)
[2017-11-30] MEDS: Labetalol 200mg tab ORAL SCH ×2 (08:19→17:41)
[2017-11-30] MEDS: Irbesartan 150mg tablet ORAL SCH (08:19)
[2017-11-30] MEDS: HydrALAZINE 50mg tab ORAL SCH ×3 (08:20→17:41)
[2017-11-30] MEDS: clonazePAM 0.5mg tab ORAL SCH ×3 (08:21→17:40)
[2017-11-30] MEDS: Trihexyphenidyl 2mg tab ORAL SCH ×3 (08:21→17:40)
[2017-11-30] MEDS: Heparin 5000 units/ml inj SUBQ SCH (08:22)
[2017-11-30] MEDS: Acetaminophen 500mg (ES) tab ORAL PRN (11:37)
[2017-11-30 12:00] VITALS: BP 141/72
[2017-11-30] MEDS: Lactulose 20gm/30ml UDC ORAL PRN (15:14)
[2017-11-30] MEDS: cefTRIAXone 1 GM in D5W 55 ML IVPB SCH (15:17)
--- NOTE | 2017-11-30 15:44 | General Progress Note ---
Assessment/Plan Assessment/Plan COPD Exacerbation - Improved. Schizophrenia - Per Psych DC to [facility] Subjective Allergies: Coded Allergies: METRONIDAZOLE (Unverified Allergy, Severe, 04/14/17) vomiting, rash SULFA (SULFONAMIDE ANTIBIOTICS) (Unverified Allergy, Severe, 07/24/17) RASH ALL OVER THE BODY, SWELLING SULFAMETHOXAZOLE (Unverified Allergy, Unknown, 11/25/17) TRIMETHOPRIM (Unverified Allergy, Unknown, 11/25/17) Subjective Less SOB + cough Objective Last 24 Hour Vital Signs Date Time Temp Pulse Resp B/P (MAP) Pulse Ox O2 Delivery O2 Flow Rate FiO2 11/30/17 12:19 141/72 11/30/17 12:00 97.9 86 20 141/72 (95) 96 97.9 11/30/17 09:00 Room Air 11/30/17 08:21 81 152/80 11/30/17 08:20 152/80 11/30/17 08:19 81 152/80 11/30/17 08:19 152/80 11/30/17 08:00 98.2 81 20 152/80 (104) 94 98.2 11/30/17 07:52 66 16 Room Air 21 11/30/17 07:52 66 16 98 Room Air 21 11/30/17 07:46 65 16 98 Room Air 21 11/30/17 06:42 98.2 11/30/17 06:12 98.2 11/30/17 04:00 98.2 82 20 137/77 (97) 98 98.2 11/29/17 23:49 98.0 88 20 149/75 (99) 99 98.0 11/29/17 23:47 98.0 11/29/17 21:00 Room Air 11/29/17 20:00 97.0 84 18 148/72 (97) 97 97.0 11/29/17 19:57 82 18 Room Air 21 11/29/17 18:16 149/68 11/29/17 18:12 71 149/68 11/29/17 16:40 97.0 11/29/17 16:00 97.7 71 18 149/68 (95) 98 97.7 Intake and Output 11/29/17 11/30/17 19:00 07:00 Intake Total 4000 ml 720 ml Output Total 1 ml Balance 4000 ml 719 ml Intake Oral 4000 ml 720 ml Output Urine Total 1 ml # Voids 5 4 Height (Feet): 5 Height (Inches): 8.00 Weight (Pounds): 230 Objective Morbidly obese. CV RR Lungs CTA Abd SNT. BS + E No CCE. Mansi Gentile MD Nov 30, 2017 15:44
[2017-11-30 16:00] VITALS: BP 154/85
[2017-11-30 17:41] VITALS: BP 154/85
--- NOTE | 2017-12-01 23:39 | General Progress Note ---
Assessment/Plan Status: stable, progressing Assessment/Plan mdd anxiety d/o klonopin reluctant to take ssri no si/hi Subjective Date patient seen: Nov 30, 2017 Neurologic/Psychiatric: Reports: anxiety, depressed, emotional problems Allergies: Coded Allergies: METRONIDAZOLE (Unverified Allergy, Severe, 04/14/17) vomiting, rash SULFA (SULFONAMIDE ANTIBIOTICS) (Unverified Allergy, Severe, 07/24/17) RASH ALL OVER THE BODY, SWELLING SULFAMETHOXAZOLE (Unverified Allergy, Unknown, 11/25/17) TRIMETHOPRIM (Unverified Allergy, Unknown, 11/25/17) Objective Intake and Output 11/30/17 12/01/17 19:00 07:00 Intake Total 1290 ml Balance 1290 ml Intake Oral 1290 ml # Voids 2 Height (Feet): 5 Height (Inches): 8.00 Weight (Pounds): 230 General Appearance: no apparent distress, alert Neurologic: oriented x 3, responsive, depressed affect Dion Meza MD Dec 01, 2017 23:39
--- NOTE | 2017-12-03 07:27 | Discharge Summary ---
Discharge Summary Discharge Summary _ DATE OF ADMISSION: 11/25/2017 DATE OF DISCHARGE: 2017 REASON FOR ADMISSION: 57 years old female with past medical history of COPD, heavy smoker, obesity, polypharmacy, scoliosis, type 2 diabetes mellitus, hypertension, psychiatric disorder, presented to emergency department with complaints of congestion and shortness of breath for few days.. She also complained of low back pain. Upon evaluation vital signs were stable. Pulse oximetry was stable on oxygen via nasal cannula. Laboratory workup revealed mild leukocytosis, WBC 12. Otherwise stable hemoglobin and hematocrit, renal parameters ,electrolytes and LFT. Troponin was negative. EKG revealed normal sinus rhythm with left bundle branch block. Pro BNP 49. Chest x-ray revealed no acute cardiopulmonary pathology. Patient admitted with COPD exacerbation for further management CONSULTANTS: psychiatrist [facility]SE: Patient admitted. Supplemental oxygen provided as needed to keep pulse oximetry above 90%. Pulmonary toilet provided via nebulizing therapy with bronchodilator around the clock and as needed. Patient was started on empiric antibiotic. Blood culture were negative. Patient was counseled on smoking cessation . Patient started the nicotine patch DVT and GI prophylaxis provided. Blood sugar was managed with sliding scale of insulin as needed. Blood sugar remained stable. Blood pressure was managed with multiply regimen of antihypertensive medications, including beta deangelo, angiotensin receptor deangelo, calcium channel deangelo and hydralazine. Statin was continued. Psychiatrist seen and evaluated patient , and diagnosed patient with major depressive disorder and anxiety disorder . Per psychiatrist patient had no suicidal or homicidal ideations. Patient was reluctant to start SSRI. Reality orientation supportive therapy provided. Pain management was addressed as needed, and pain was controlled. Bowel regimen instituted. Patient clinically improved and was stable for discharge to assisted living . FINAL DIAGNOSES: COPD exacerbation smoker/ nicotine dependency type 2 diabetes mellitus hypertension obesity low back pain with history of scoliosis major depressive disorder anxiety disorder DISCHARGE MEDICATIONS: See Medication Reconciliation list. DISCHARGE INSTRUCTIONS: Patient was discharged to [facility]; follow-up with the primary care provider in one week. I have been assigned to dictate discharge summary for this account. I was not involved in the patient's management. Deb Bonilla NP Dec 03, 2017 07:27
== END 2017-11-30 20:47 | disposition home or self-care (01) | DRG 192 ==
LOC: EDBD 13:58 → EMR 14:20 → 2E 15:12 → EDBEDREQSVC 15:34 → EDBEDREQ 16:41 → 3E 11-27 07:12
DX: J44.1 Chronic obstructive pulmonary disease with (acute) exacerbation (principal); I10 Essential (primary) hypertension; F17.200 Nicotine dependence, unspecified, uncomplicated; Z88.2 Allergy status to sulfonamides; Z88.8 Allergy status to other drugs, medicaments and biological substances; F29 Unspecified psychosis not due to a substance or known physiological condition; M54.5 Low back pain; E11.9 Type 2 diabetes mellitus without complications; E66.01 Morbid (severe) obesity due to excess calories; F20.9 Schizophrenia, unspecified
CPT/HCPCS: 36415; 71045; 80053; 82962; 83690; 83880; 84484; 85025; 87040; 87081; 93005; 94640; 94664; 96374; 99291; J1815

== ENCOUNTER 2018-03-18 11:32 | Inpatient (IN) | payer MEDICARE, MEDICAID ==
[~2018-03-18] VITALS: Ht 177.8 cm; Wt 99.8 kg
[2018-03-18 11:54] VITALS: BP 136/76
--- NOTE | 2018-03-18 11:55 | NUR ---
ED Nurse Note:pt. was NARCISA from board and care with SOB and general weakness, A/Ox4 ambulatory with assist. placed on cardiac catheterization technician and O2 2L via N/C
[2018-03-18] MEDS ORDERED: FLUPHENAZINE HCL5 M1 PO (12:02)
[2018-03-18] MEDS ORDERED: DIOVAN320 MG ORAL (12:02)
[2018-03-18] MEDS ORDERED: JANUVIA25 MG ORAL (12:02)
[2018-03-18] MEDS ORDERED: DESVENLAFAXINE50 MG ORAL (12:02)
[2018-03-18] MEDS ORDERED: LINZESS145 MCG PO (12:02)
[2018-03-18 12:28] LABS: BASOPHILS % (AUTO) 1.5 % (0.0-2.0); EOSINOPHILS % (AUTO) 2.2 % (0.0-3.0); HEMATOCRIT 36.8 % (37.0-47.0); HEMOGLOBIN 12.4 G/DL (12.0-16.0); LYMPHOCYTES % (AUTO) 25.5 % (20.0-45.0); MEAN CORPUSCULAR VOLUME 89 FL (80-99); MONOCYTES % (AUTO) 16.5 % (1.0-10.0); NEUTROPHILS % (AUTO) 54.3 % (45.0-75.0); PLATELET COUNT 313 K/UL (150-450); RED BLOOD COUNT 4.12 M/UL (4.20-5.40); RED CELL DISTRIBUTION WIDTH 12.1 % (11.6-14.8); WHITE BLOOD COUNT 11.6 K/UL (4.8-10.8)
--- NOTE | 2018-03-18 12:28 | NUR ---
ED Nurse Note:blood and cultures sentt to labs
[2018-03-18] MEDS ORDERED: Albuterol ud Inhalation HHN ONE ×2 (12:30→15:15)
[2018-03-18] MEDS ORDERED: Ipratropium 0.02% Inh Soln 2.5ml UD HHN ONE (12:30)
[2018-03-18 13:08] LABS: ANION GAP 12 mmol/L (5-15); BLOOD UREA NITROGEN 5 mg/dL (7-18); CALCIUM 8.8 MG/DL (8.5-10.1); CARBON DIOXIDE 26 MMOL/L (21-32); CHLORIDE 100 MMOL/L (98-107); CREATININE 0.7 MG/DL (0.55-1.30); POTASSIUM 3.3 MMOL/L (3.5-5.1); SODIUM 137 MMOL/L (136-145)
[2018-03-18 13:09] LABS: ALANINE AMINOTRANSFERASE 31 U/L (12-78); ALBUMIN 3.3 G/DL (3.4-5.0); ALBUMIN/GLOBULIN RATIO 0.8 (1.0-2.7); ALKALINE PHOSPHATASE 72 U/L (46-116); ASPARTATE AMINO TRANSFERASE 23 U/L (15-37); BILIRUBIN,TOTAL 0.2 MG/DL (0.2-1.0); CKMB 11.7 NG/ML (0.0-3.6); CREATINE KINASE 457 U/L (26-308)
[2018-03-18 13:39] LABS: APPEARANCE,URINE SLIGHTLY CLOUDY; BILIRUBIN, URINE NEGATIVE (NEGATIVE); COLOR,URINE PALE YELLOW; GLUCOSE, URINE (UA) NEGATIVE (NEGATIVE); KETONES,URINE NEGATIVE (NEGATIVE); LEUKOCYTE ESTERASE ,URINE 3+ (NEGATIVE); NITRITE,URINE NEGATIVE (NEGATIVE); PH,URINE 7 (4.5-8.0); PROTEIN,URINE NEGATIVE (NEGATIVE); UROBILINOGEN,URINE NORMAL MG/DL (0.0-1.0)
[2018-03-18 13:53] VITALS: BP 132/73
[2018-03-18] MEDS ORDERED: Norco 5mg/325mg tab ORAL ONE (14:00)
[2018-03-18] MEDS ORDERED: Norco 5mg/325mg tab ONE (14:01)
--- NOTE | 2018-03-18 14:36 | Diagnostic Imaging Report ---
Indication: Shortness of breath Technique: One view of the chest Comparison: 11/25/2017 Findings: Lungs and pleural spaces are clear. Heart size is normal. No significant interim change Impression: No acute process
--- NOTE | 2018-03-18 14:51 | NUR ---
ED Nurse Note:pt. is resting no signs of distress noted, VSS
--- NOTE | 2018-03-18 15:00 | NUR ---
ED Nurse Note: received report from JILL Lozada and assumed care, pt resting in bed comfortably, vss, ambulatory w/ steady gait, noted dry nonproductive cough, LS= exp wheezing and rhonchi on lower bases. pt on o2 via nc, o2sat 98%, will cont monitor.
--- NOTE | 2018-03-18 15:02 | Emergency Room Report ---
History of Present Illness General Chief Complaint: Generalized Weakness Source: Patient, Medical Record, EMS Present Illness HPI This patient complains of SOB, cough and congestion. She denies f/c/s. She denies n/v/d. She denies CP. She has no other complaints. Allergies: Coded Allergies: METRONIDAZOLE (Unverified Allergy, Severe, 04/14/17) vomiting, rash SULFA (SULFONAMIDE ANTIBIOTICS) (Unverified Allergy, Severe, 07/24/17) RASH ALL OVER THE BODY, SWELLING SULFAMETHOXAZOLE (Unverified Allergy, Unknown, 11/25/17) TRIMETHOPRIM (Unverified Allergy, Unknown, 11/25/17) Patient History Past Medical History: see triage record, DM, HTN, COPD, GERD Social History: Denies: smoking, alcohol use, drug use Now: No Reviewed Nursing Documentation: PMH: Agreed; PSxH: Agreed Nursing Documentation-PMH Hx Cardiac Problems: Yes Hx Hypertension: Yes Hx COPD: Yes Hx Diabetes: Yes Hx Cancer: Yes Hx Gastrointestinal Problems: Yes Hx Neurological Problems: No Review of Systems All Other Systems: negative except mentioned in HPI Physical Exam Vital Signs Date Time Temp Pulse Resp B/P (MAP) Pulse Ox O2 Delivery O2 Flow Rate FiO2 03/18/18 11:32 98.6 78 18 136/76 95 Nasal Cannula 4.0 03/18/18 12:37 28 Sp02 EP Interpretation: reviewed, normal General Appearance: no apparent distress, alert, GCS 15, non-toxic Head: normocephalic, atraumatic Eyes: bilateral eye normal inspection, bilateral eye PERRL ENT: hearing grossly normal, normal pharynx, no angioedema, normal voice Neck: full range of motion, supple/symm/no masses Respiratory: chest non-tender, no respiratory distress, no retraction, no accessory muscle use, speaking full sentences, wheezing, expiration Cardiovascular #1: regular rate, rhythm, no edema Gastrointestinal: normal bowel sounds, non tender, soft, non-distended, no guarding, no rebound Rectal: deferred Musculoskeletal: back normal, gait/station normal, normal range of motion, non- tender Neurologic: alert, oriented x3, responsive, motor strength/tone normal, sensory intact, speech normal Psychiatric: judgement/insight normal, memory normal, mood/affect normal, no suicidal/homicidal ideation Skin: normal color, no rash, warm/dry, well hydrated Medical Decision Making Diagnostic Impression: Primary Impression: COPD exacerbation ER Course This patient has COPD exacerbation. She continues to have wheezing on exam after treatment and coughing. She she states that she feels poorly and does not think that she can go home. She is admitted for pulmonary hygiene and further evaluation and treatment. Laboratory Tests Test 03/18/18 12:05 03/18/18 13:00 White Blood Count 11.6 K/UL (4.8-10.8) H Red Blood Count 4.12 M/UL (4.20-5.40) L Hemoglobin 12.4 G/DL (12.0-16.0) Hematocrit 36.8 % (37.0-47.0) L Mean Corpuscular Volume 89 FL (80-99) Mean Corpuscular Hemoglobin 30.1 PG (27.0-31.0) Mean Corpuscular Hemoglobin Concent 33.7 G/DL (32.0-36.0) Red Cell Distribution Width 12.1 % (11.6-14.8) Platelet Count 313 K/UL (150-450) Mean Platelet Volume 6.5 FL (6.5-10.1) Neutrophils (%) (Auto) 54.3 % (45.0-75.0) Lymphocytes (%) (Auto) 25.5 % (20.0-45.0) Monocytes (%) (Auto) 16.5 % (1.0-10.0) H Eosinophils (%) (Auto) 2.2 % (0.0-3.0) Basophils (%) (Auto) 1.5 % (0.0-2.0) Sodium Level 137 MMOL/L (136-145) Potassium Level 3.3 MMOL/L (3.5-5.1) L Chloride Level 100 MMOL/L (98-107) Carbon Dioxide Level 26 MMOL/L (21-32) Anion Gap 12 mmol/L (5-15) Blood Urea Nitrogen 5 mg/dL (7-18) L Creatinine 0.7 MG/DL (0.55-1.30) Estimate Glomerular Filtration Rate > 60 mL/min (>60) Glucose Level 104 MG/DL (74-106) Lactic Acid Level 1.00 mmol/L (0.4-2.0) Calcium Level 8.8 MG/DL (8.5-10.1) Total Bilirubin 0.2 MG/DL (0.2-1.0) Aspartate Amino Transferase (AST) 23 U/L (15-37) Alanine Aminotransferase (ALT) 31 U/L (12-78) Alkaline Phosphatase 72 U/L (46-116) Total Creatine Kinase 457 U/L (26-308) H Creatine Kinase MB 11.7 NG/ML (0.0-3.6) H Creatine Kinase MB Relative Index 2.5 Troponin I 0.000 ng/mL (0.000-0.056) Total Protein 7.3 G/DL (6.4-8.2) Albumin 3.3 G/DL (3.4-5.0) L Globulin 4.0 g/dL Albumin/Globulin Ratio 0.8 (1.0-2.7) L Urine Color Pale yellow Urine Appearance Slightly cloudy Urine pH 7 (4.5-8.0) Urine Specific Price 1.005 (1.005-1.035) Urine Protein Negative (NEGATIVE) Urine Glucose (UA) Negative (NEGATIVE) Urine Ketones Negative (NEGATIVE) Urine Blood Negative (NEGATIVE) Urine Nitrite Negative (NEGATIVE) Urine Bilirubin Negative (NEGATIVE) Urine Urobilinogen Normal MG/DL (0.0-1.0) Urine Leukocyte Esterase 3+ (NEGATIVE) H Urine RBC 5-10 /HPF (0 - 2) H Urine WBC 10-15 /HPF (0 - 2) H Urine Squamous Epithelial Cells Many /LPF (NONE/OCC) H Urine Bacteria Few /HPF (NONE) Microbiology Date/Time Source Procedure Growth Status 03/18/18 12:05 Nasal Nares Influenza Types A,B Antigen (KIP) - Final Complete EKG Diagnostic Results Rate: normal Rhythm: NSR ST Segments: no acute changes Other Impression LBBB Rhythm Strip Diag. Results EP Interpretation: yes Rate: 80's Rhythm: NSR, no PVC's, no ectopy Chest X-Ray Diagnostic Results Chest X-Ray Diagnostic Results : Chest X-Ray Ordered: Yes # of Views/Limited/Complete: 1 View Indication: Shortness of Breath EP Interpretation: Yes Interpretation: no consolidation, no effusion, no pneumothorax, no acute cardiopulmonary disease Impression: No acute disease Electronically Signed by: Leonor Mahoney DO Last Vital Signs Date Time Temp Pulse Resp B/P (MAP) Pulse Ox O2 Delivery O2 Flow Rate FiO2 03/18/18 14:22 98.6 03/18/18 13:53 89 18 132/73 94 Nasal Cannula 2.0 03/18/18 12:52 28 Disposition: ADMITTED INPATIENT Condition: Stable Referrals: Mansi Gentile MD (PCP) Leonor Mahoney DO Mar 18, 2018 15:02
[2018-03-18] MEDS ORDERED: cefTRIAXone 1 GM in NS 55 ML IVPB ONE (15:15)
--- NOTE | 2018-03-18 15:37 | NUR ---
ED Nurse Note: called RT for pt's breathing tx, no one picking up at this time. will try again.
--- NOTE | 2018-03-18 15:49 | NUR ---
ED Nurse Note: attempted calling RT, no one picking up at this time, will try again.
--- NOTE | 2018-03-18 16:35 | NUR ---
ED Nurse Note: pt reports breathing is a little bit better with breathing tx, will cont monitor.
--- NOTE | 2018-03-18 16:59 | NUR ---
ED Nurse Note: called RT for another breathing tx
--- NOTE | 2018-03-18 17:03 | NUR ---
ED Nurse Note: ATTEMPTED GIVING REPORT TO RN, RN CURRENTLY UNAVAILABLE.
[2018-03-18] MEDS ORDERED: Albuterol/Ipratropium 3ml neb HHN ONE (17:15)
[2018-03-18 17:35] VITALS: BP 116/66
--- NOTE | 2018-03-18 17:54 | NUR ---
ED Nurse Note: report given to JILL Dillard from [place], pt transferred to floor, all belongings sent with pt. vss, ambulatory w/ stedy gait, no neuro changes
--- NOTE | 2018-03-18 18:00 | NUR ---
NURSE NOTES: Received patient awake and able to verbalize needs. Patient is stable, no acute distress at this time. patient denies pain at this time. Skin is clean, dry, and intact. IV site patent. Attempted to call Dr. Royal x3 on emergency line . Left messages for Dr. Royal for admission orders, awaiting return call. Patient oriented to room, call light, and unit. Patient is comfortable in bed in locked position and call light within reach. All safety measures provided. All needs met at this time. Will continue to monitor patient.
[2018-03-18] MEDS ORDERED: Acetaminophen 500mg (ES) tab ORAL PRN (19:21)
[2018-03-18] MEDS ORDERED: DiphenhydrAMINE 50mg/ml Inj IVP PRN (19:21)
[2018-03-18] MEDS ORDERED: Norco 5mg/325mg tab ORAL PRN (19:43)
[2018-03-18 20:00] VITALS: BP 152/81
--- NOTE | 2018-03-18 20:25 | NUR ---
NURSE NOTES: Spoke to [place] pharmacist about nonformulary medications and was instructed to have someone send them to hospital. Called [facility] to send home medications over and they are unable to bring medications deanne, was instructed to call facility back in am .
--- NOTE | 2018-03-18 20:31 | NUR ---
HAND-OFF: Report given to Roger MELCHOR. Patient is stable.
--- NOTE | 2018-03-18 20:45 | NUR ---
NURSE NOTES: Received report from Gilma. Patient in bed, awake, alert and verbally responsive. Able to make needs known. Iv site noted. Kept clean and comfortable. No complaint of pain or discomfort noted. Skin is warm and dry to touch. Abdomen is soft. Respiration is even and on nasal cannula 2 L. Bed in low and locked position. Call light is at bedside. Will continue plan of care.
[2018-03-18] MEDS: HydrALAZINE 50mg tab ORAL SCH (22:03)
[2018-03-18] MEDS: Labetalol 200mg tab ORAL SCH (22:04)
[2018-03-18] MEDS: Heparin 5000 units/ml inj SUBQ SCH (22:05)
[2018-03-19] VITALS: BP 139/67
[2018-03-19] MEDS ORDERED: Albuterol 90mcg Inhaler 8gm INH SCH
[2018-03-19] MEDS ORDERED: Albuterol 90mcg Inhaler 8gm INH PRN
[2018-03-19] MEDS: Norco 5mg/325mg tab ORAL PRN ×3 (01:30→21:25)
[2018-03-19 04:00] VITALS: BP 137/66
[2018-03-19] MEDS: HydrALAZINE 50mg tab ORAL SCH ×3 (06:19→21:24)
--- NOTE | 2018-03-19 07:31 | NUR ---
HAND-OFF: Report given to JILL Patino. Endorsed to follow up on home medication. [phone]
--- NOTE | 2018-03-19 07:45 | NUR ---
NURSE NOTES: Received report from Roger MELCHOR. On rounds, patient is awake alert and oriented x4, sitting up in bed. Coughing forcefully, no other signs of acute distress. Does not report shortness of breath. On 2L NC. Patient is requesting her medications, educated patient that I will administer when due, patient in agreement. Side rails upx2, bed low and locked, call light in reach. Will continue to monitor.
[2018-03-19 08:00] VITALS: BP 153/77
[2018-03-19] MEDS ORDERED: Hydrocortisone 2.5% Cream - 30gm TOPIC SCH (09:00)
[2018-03-19] MEDS: Oxybutynin 5mg tab ORAL SCH ×2 (09:05→18:57)
[2018-03-19] MEDS: metFORMIN 500mg tab ORAL SCH ×2 (09:05→18:56)
[2018-03-19] MEDS: Labetalol 200mg tab ORAL SCH ×2 (09:06→21:25)
[2018-03-19] MEDS: Irbesartan 150mg tablet ORAL SCH (09:06)
[2018-03-19] MEDS: Trihexyphenidyl 2mg tab ORAL SCH ×3 (09:07→18:56)
[2018-03-19] MEDS: clonazePAM 0.5mg tab ORAL SCH ×3 (09:07→18:56)
[2018-03-19] MEDS: Heparin 5000 units/ml inj SUBQ SCH ×2 (09:09→21:26)
[2018-03-19 12:00] VITALS: BP 142/67
--- NOTE | 2018-03-19 13:45 | NUR ---
NURSE NOTES: Called [facility] and spoke with Mamie regarding patient's non-formulary home medications. Per Mamie, there is currently no nurse present at the facility and the medications cannot be released at this time. Asked Mamie to have a nurse from the facility call [phone] when on site to follow up. Left callback number for unit. Will continue to monitor.
--- NOTE | 2018-03-19 14:41 | NUR ---
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 98.6 HR 78 RR 18 B/P 136/76 2L NC O2 SAT @ 98% WBC 11.6 TCK 457 CKMB 11.7 UA+ LEUKOCYTE ESTERASE,SQUAMOUS EPITH CELLS,BACTERIA,RBC,WBC CXR= NO ACUTE PROCESS IS: IV NS X 1 LITER ALB HHN ATROVENT HHN ADMITTED TO MED/SURG @ 1800 MED/SURG STATUS
[2018-03-19 16:00] VITALS: BP 147/61
--- NOTE | 2018-03-19 16:22 | NUR ---
NURSE NOTES: Patient stated that she does not want to go back to her board and care, states she does not feel "safe" there. Patient did not specify why she does not feel safe, just stated she had concerns and wants to go to a different board and care when discharged. Paged Dr. Royal to inform and ask MD for a social service consult for the patient. Awaiting callback from MD. Will continue to monitor.
--- NOTE | 2018-03-19 17:00 | History and Physical Report ---
DATE OF ADMISSION: 03/18/2018 HISTORY OF PRESENT ILLNESS: This is a 57-year-old female who lives in a board and [facility]. The patient presented yesterday with gradually increasing shortness of breath. PAST MEDICAL HISTORY: 1. Type 2 diabetes mellitus. 2. Obesity. 3. Hypertensive cardiovascular disease. 4. COPD. 5. Gastroesophageal reflux disease. HOME MEDICATIONS: [place] p.r.n., Ventolin inhaler, Klonopin, desvenlafaxine ER, estradiol, famotidine, fluphenazine, Neurontin, hydralazine, hydrocortisone cream, labetalol, Linzess, nifedipine, oxybutynin, prednisone, pravastatin, Januvia, Spiriva, and Diovan. ALLERGIES: Metronidazole, sulfa, sulfonamide, and antibiotics. FAMILY HISTORY: Unremarkable. SOCIAL HISTORY: Lives in a [facility] and [facility]. HABITS: She is nonsmoker and nondrinker. There is no history of illicit drug abuse. REVIEW OF SYSTEMS: HEENT: Hearing and eyesight are normal. ENDOCRINE: Significant for mild type 2 diabetes mellitus. RESPIRATORY: Please refer to history of present illness. CARDIAC: She denies chest pain or palpitations. GASTROINTESTINAL: No history of hematochezia, melena, hematemesis, diarrhea, or constipation. GENITOURINARY: She denies dysuria, frequency, urgency, or hematuria. NEUROLOGIC: No history of stroke, syncope, or Parkinson disease. PHYSICAL EXAMINATION: GENERAL: This is an elderly morbidly obese female, who is in no acute distress. VITAL SIGNS: Blood pressure 142/67; pulse 81, regular; respirations 20; and temperature 98. HEENT: Head is normocephalic and atraumatic. Pupils are equal, round, and reactive to light and accommodation. NECK: Supple. Trachea midline. There was no lymphadenopathy or thyromegaly. LUNGS: Bilateral wheezes. HEART: Regular rate and rhythm without rubs, murmurs, or gallops. ABDOMEN: Soft and nontender. Bowel sounds were active. EXTREMITIES: No clubbing, cyanosis, or edema. NEUROLOGIC: She is alert and oriented x4. Cranial nerves II through XII intact. LABORATORY AND ANCILLARY DATA: [place] [address], otherwise within normal limits. Chemistry, potassium 3.3, otherwise within normal limits. Chest x-ray, no acute disease. ASSESSMENT: Chronic obstructive pulmonary disease exacerbation. PLAN: 1. Bronchodilators. 2. Continue home medications. 3. IV antibiotics. Mansi Gentile M.D. DR: REBEKAH JOB#: [id number] CC:
--- NOTE | 2018-03-19 17:07 | NUR ---
NURSE NOTES: Patient requested to speak to social service technician saying she had concerns about her board and care. I spoke to MD Gentile and he stated that the patient does this every time she comes to the hospital and that the patient has psychiatric issues and to ignore the request. I asked him if I could place the order and again he stated not to place a social service consult.
--- NOTE | 2018-03-19 17:31 | NUR ---
NURSE NOTES: I left voice message for web content & social media manager Michaela in [facility] to patient stating she didn't feel safe at her board and care. I also let her know about MD Gentile's response when he was advised. Nursing mirror fabrication supervisor Ana Cristina notified and made aware.
--- NOTE | 2018-03-19 19:30 | NUR ---
HAND-OFF: Report given to Roger MELCHOR. Patient stable.
--- NOTE | 2018-03-19 19:57 | NUR ---
NURSE NOTES: Received report. Patient in bed, awake, alert and verbally responsive. Able to make needs known. Respiration is even and unlabored. On nasal cannula 2 L. Skin is warm and dry to touch. Abdomen is soft and non distended. No complaint of pain or discomfort noted. Bed in low and locked position. Provided safe environment. IV site is noted. Call light is at bedside. Will continue plan of care.
[2018-03-19 20:00] VITALS: BP 149/84
[2018-03-19] MEDS: Albuterol/Ipratropium 3ml neb HHN PRN (20:33)
[2018-03-20] VITALS: BP 135/82
[2018-03-20] MEDS: Albuterol/Ipratropium 3ml neb HHN PRN ×2 (00:57→19:44)
[2018-03-20 04:00] VITALS: BP 135/70
[2018-03-20] MEDS: Norco 5mg/325mg tab ORAL PRN ×3 (04:15→17:22)
--- NOTE | 2018-03-20 06:29 | NUR ---
NURSE NOTES: Patient noted saying she takes linzess and mesalamine, home meds.
[2018-03-20] MEDS: HydrALAZINE 50mg tab ORAL SCH ×5 (06:32→22:54)
--- NOTE | 2018-03-20 07:21 | NUR ---
HAND-OFF: Report given to JILL Dillard.
--- NOTE | 2018-03-20 07:30 | NUR ---
NURSE NOTES: Patient is in bed awake and able to verbalize needs. Patient is stable with no s/s acute distress. Patient denies pain at this time. Called Kelsy philip and spoked to [place] about medications. Facility will not send medications over to hospital. Will call doctor. Patient is comfortable in bed with call light within reach. All needs met at this time.
[2018-03-20 08:00] VITALS: BP 130/61
--- NOTE | 2018-03-20 08:29 | NUR ---
NURSE NOTES: Spoke to Dr. Gentile, non-formulary medications discontinued as ordered. Will continue to monitor patient
[2018-03-20] MEDS: Oxybutynin 5mg tab ORAL SCH ×2 (08:46→17:26)
[2018-03-20] MEDS: Irbesartan 150mg tablet ORAL SCH (08:48)
[2018-03-20] MEDS: clonazePAM 0.5mg tab ORAL SCH ×3 (08:48→17:25)
[2018-03-20] MEDS: metFORMIN 500mg tab ORAL SCH ×2 (08:48→17:26)
[2018-03-20] MEDS: Trihexyphenidyl 2mg tab ORAL SCH ×3 (08:49→17:26)
[2018-03-20] MEDS: Labetalol 200mg tab ORAL SCH ×2 (08:49→21:06)
[2018-03-20] MEDS: Heparin 5000 units/ml inj SUBQ SCH ×2 (08:53→21:07)
[2018-03-20] MEDS ORDERED: Lacri-Lube Opth Oint 3.5gm BOTH EYES SCH (09:00)
[2018-03-20] MEDS: Artificial Tears 1.4% Op Soln BOTH EYES SCH ×2 (09:58→17:27)
[2018-03-20 12:00] VITALS: BP 124/62
--- NOTE | 2018-03-20 13:51 | General Progress Note ---
Assessment/Plan Assessment/Plan COPD Exacerbation IV ABX, bronchodilators -still SOB + wheezing Subjective Allergies: Coded Allergies: METRONIDAZOLE (Unverified Allergy, Severe, 04/14/17) vomiting, rash SULFA (SULFONAMIDE ANTIBIOTICS) (Unverified Allergy, Severe, 07/24/17) RASH ALL OVER THE BODY, SWELLING SULFAMETHOXAZOLE (Unverified Allergy, Unknown, 11/25/17) TRIMETHOPRIM (Unverified Allergy, Unknown, 11/25/17) Subjective c/o SOB Objective Last 24 Hour Vital Signs Date Time Temp Pulse Resp B/P (MAP) Pulse Ox O2 Delivery O2 Flow Rate FiO2 03/20/18 12:00 97.6 73 18 124/62 (82) 94 03/20/18 09:23 87 18 97 Room Air 21 03/20/18 09:23 87 18 97 Room Air 21 03/20/18 09:00 Nasal Cannula 2.0 03/20/18 08:49 84 143/75 03/20/18 08:49 84 143/75 03/20/18 08:48 143/75 03/20/18 08:10 87 18 Nasal Cannula 2.0 28 03/20/18 08:00 97.8 82 18 130/61 (84) 93 03/20/18 06:32 135/70 03/20/18 04:00 97.2 70 18 135/70 (91) 97 03/20/18 01:08 69 20 99 Room Air 21 03/20/18 01:00 21 03/20/18 00:59 67 22 97 Room Air 21 03/20/18 00:00 97.4 68 19 135/82 (99) 95 03/19/18 21:25 88 149/84 03/19/18 21:24 149/84 03/19/18 20:55 Nasal Cannula 2.0 03/19/18 20:44 88 17 99 Nasal Cannula 2.0 28 03/19/18 20:38 83 17 Nasal Cannula 2.0 28 03/19/18 20:37 28 03/19/18 20:35 83 17 95 Nasal Cannula 2.0 28 03/19/18 20:00 97.1 72 17 149/84 (105) 96 03/19/18 16:00 98.9 90 18 147/61 (89) 97 03/19/18 14:39 142/67 03/19/18 14:25 98.5 Intake and Output 03/19/18 03/20/18 18:59 06:59 Intake Total 800 ml 100 ml Balance 800 ml 100 ml Intake Oral 800 ml IV Total 100 ml # Voids 3 Height (Feet): 5 Height (Inches): 10.00 Weight (Pounds): 220 Objective CV RR Lungs B wheezes Abd SNT. BS + E No CCE Mansi Gentile MD Mar 20, 2018 13:51
--- NOTE | 2018-03-20 14:27 | NUR ---
NURSE NOTES: Patient refused Hydralazine because she stated "my blood pressure is too low, I can't take this." BP is 118/65. RN explained all risks and benefits. Patient continued to refuse. Will continue to monitor.
[2018-03-20 16:00] VITALS: BP 109/62
[2018-03-20] MEDS ORDERED: Artificial Tears 1.4% Op Soln BOTH EYES PRN (19:15)
--- NOTE | 2018-03-20 19:35 | NUR ---
NURSE NOTES: Received a report from JILL Dillard. Pt is in stable condition. AAOX4. Able to make needs known. Daughter at the bedside. No respiratory distress noted. On room air. No c/o pain/discomfort. IV site is patent and intact. Bed in lowest position. Call light within reach. Will continue to monitor.
--- NOTE | 2018-03-20 19:48 | NUR ---
HAND-OFF: Report given to Shruti MELCHOR. Patient is stable.
[2018-03-20 20:00] VITALS: BP 152/84
[2018-03-21] VITALS (7 sets, daily range): BP systolic 124–149; BP diastolic 62–75
[2018-03-21] MEDS: HydrALAZINE 50mg tab ORAL SCH ×3 (05:21→22:12)
--- NOTE | 2018-03-21 07:29 | NUR ---
NURSE NOTES: JILL Bahena, endorsed to JILL Delgadillo, to call the slab lifting supervisor to put the $100 bill of the pt to the safety locker. JILL Delgadillo, will do it later.
--- NOTE | 2018-03-21 07:30 | NUR ---
HAND-OFF: Report given to JILL Delgadillo.
--- NOTE | 2018-03-21 07:54 | NUR ---
NURSE NOTES: Patient is alert and oriented,respirations are unlabored,patient ate breakfast,call light within reach.No complaints at this time.
[2018-03-21] MEDS: Trihexyphenidyl 2mg tab ORAL SCH ×3 (08:30→18:40)
[2018-03-21] MEDS: Oxybutynin 5mg tab ORAL SCH ×2 (08:31→18:41)
[2018-03-21] MEDS: Irbesartan 150mg tablet ORAL SCH (08:31)
[2018-03-21] MEDS: clonazePAM 0.5mg tab ORAL SCH ×3 (08:32→18:40)
[2018-03-21] MEDS: metFORMIN 500mg tab ORAL SCH ×2 (08:32→18:40)
[2018-03-21] MEDS: Labetalol 200mg tab ORAL SCH ×2 (08:33→20:58)
[2018-03-21] MEDS: Heparin 5000 units/ml inj SUBQ SCH ×2 (08:34→20:59)
[2018-03-21] MEDS: Norco 5mg/325mg tab ORAL PRN ×3 (10:07→22:12)
[2018-03-21] MEDS: Artificial Tears 1.4% Op Soln BOTH EYES SCH ×2 (10:08→18:40)
--- NOTE | 2018-03-21 11:13 | Cardiology Report ---
APPROVED REPORT EKG Measurement Heart [id number] FL [id number] Normal sinus rhythm Left bundle branch block Abnormal ECG
--- NOTE | 2018-03-21 12:14 | General Progress Note ---
Assessment/Plan Assessment/Plan COPD Exacerbation IV ABX, bronchodilators -still SOB + wheezing Subjective Allergies: Coded Allergies: METRONIDAZOLE (Unverified Allergy, Severe, 04/14/17) vomiting, rash SULFA (SULFONAMIDE ANTIBIOTICS) (Unverified Allergy, Severe, 07/24/17) RASH ALL OVER THE BODY, SWELLING SULFAMETHOXAZOLE (Unverified Allergy, Unknown, 11/25/17) TRIMETHOPRIM (Unverified Allergy, Unknown, 11/25/17) Subjective c/o SOB Objective Last 24 Hour Vital Signs Date Time Temp Pulse Resp B/P (MAP) Pulse Ox O2 Delivery O2 Flow Rate FiO2 03/21/18 09:00 Nasal Cannula 2.0 03/21/18 08:33 77 138/62 03/21/18 08:33 77 138/62 03/21/18 08:31 138/62 03/21/18 08:12 77 20 96 Room Air 21 03/21/18 08:11 77 18 Room Air 21 03/21/18 08:08 77 20 96 Room Air 21 03/21/18 08:00 98.9 84 19 138/62 (87) 99 03/21/18 05:21 149/70 03/21/18 04:00 97.3 82 19 149/70 (96) 94 03/21/18 00:00 98.2 74 19 149/70 (96) 100 03/20/18 22:54 150/79 03/20/18 21:06 74 152/84 03/20/18 21:00 Nasal Cannula 2.0 03/20/18 20:00 98.1 74 18 152/84 (106) 97 03/20/18 19:52 74 22 98 Room Air 21 03/20/18 19:42 72 24 Room Air 21 03/20/18 19:41 21 03/20/18 19:41 72 24 97 Room Air 21 03/20/18 16:00 97.2 74 20 109/62 (78) 94 Intake and Output 03/20/18 03/21/18 19:00 07:00 Intake Total 2080 ml Balance 2080 ml Intake Oral 1980 ml IV Total 100 ml # Voids 5 Height (Feet): 5 Height (Inches): 10.00 Weight (Pounds): 220 Objective CV RR Lungs B wheezes Abd SNT. BS + E No CCE Mansi Gentile MD Mar 21, 2018 12:14
--- NOTE | 2018-03-21 19:00 | NUR ---
NURSE NOTES: Patient resting coughing at times,patient requesting cough medication and also patient state she want medication to have a bowel movement,will notify DR Gentile.
--- NOTE | 2018-03-21 19:30 | NUR ---
NURSE NOTES: Received report from JILL Delgadillo. Received pt lying in bed, A&Ox4, denies pain, no distress noted. Bed in lowest position and locked, side rails up x 2, call light within reach. Will continue to monitor.
--- NOTE | 2018-03-21 19:45 | NUR ---
HAND-OFF: Report given to LEONIDAS MELCHOR.
[2018-03-21] MEDS ORDERED: Milk of Magnesia 30ml Ud ORAL PRN (20:00)
[2018-03-21] MEDS: Guaifenesin/DM 10ml syrup ORAL PRN (20:58)
[2018-03-22 05:30] VITALS: BP 143/65
[2018-03-22] MEDS: HydrALAZINE 50mg tab ORAL SCH (05:32)
[2018-03-22] MEDS: Guaifenesin/DM 10ml syrup ORAL PRN (05:34)
[2018-03-22] MEDS: Norco 5mg/325mg tab ORAL PRN ×2 (05:35→12:56)
--- NOTE | 2018-03-22 07:36 | NUR ---
HAND-OFF: Report given to JILL Aly. Pt in stable condition.
[2018-03-22 08:00] VITALS: BP 130/55
--- NOTE | 2018-03-22 08:00 | NUR ---
NURSE NOTES: Received report from Shane Purvis pt a/a/o x4 laying in bed with no signs of distress or other issues at this time. IV on the left hand gauge#22 heplock. pt is on a regular diet. call light within reach, bed in lowest position. side rales up x2. plan to go back to [facility] today. I will f/u as needed.
[2018-03-22] MEDS: Trihexyphenidyl 2mg tab ORAL SCH ×2 (09:15→12:56)
[2018-03-22] MEDS: metFORMIN 500mg tab ORAL SCH (09:17)
[2018-03-22] MEDS: Labetalol 200mg tab ORAL SCH (09:17)
[2018-03-22] MEDS: Irbesartan 150mg tablet ORAL SCH (09:18)
[2018-03-22] MEDS: clonazePAM 0.5mg tab ORAL SCH ×2 (09:19→12:56)
[2018-03-22] MEDS: Oxybutynin 5mg tab ORAL SCH (09:20)
[2018-03-22] MEDS: Heparin 5000 units/ml inj SUBQ SCH (09:20)
[2018-03-22] MEDS: Artificial Tears 1.4% Op Soln BOTH EYES SCH (09:22)
--- NOTE | 2018-03-22 09:50 | NUR ---
Social Work Patient requesting to speak with this SW. This Sw met with patient who explained she is wanting to discharge to a usp upon discharge. This SW explained to patient she is too level and does not require a Skilled Facility at this time. Patient telling she does not like her Board and Care, stating "they are mean there." This SW informed her Physician also is advising for patient to return to her Board/Care, does not need SNF. Patient explains she will also discuss this with her M.D as well. This Sw made an attempt to contact her daughter, Shante @ [phone]; no answer, no voicemail at this time.
--- NOTE | 2018-03-22 10:19 | General Progress Note ---
Assessment/Plan Assessment/Plan COPD Exacerbation resolved. Patient has many demands. Wants a new Board and Care. Medically stable for DC . Subjective Allergies: Coded Allergies: METRONIDAZOLE (Unverified Allergy, Severe, 04/14/17) vomiting, rash SULFA (SULFONAMIDE ANTIBIOTICS) (Unverified Allergy, Severe, 07/24/17) RASH ALL OVER THE BODY, SWELLING SULFAMETHOXAZOLE (Unverified Allergy, Unknown, 11/25/17) TRIMETHOPRIM (Unverified Allergy, Unknown, 11/25/17) Subjective No new c/o Objective Last 24 Hour Vital Signs Date Time Temp Pulse Resp B/P (MAP) Pulse Ox O2 Delivery O2 Flow Rate FiO2 03/22/18 09:18 130/55 03/22/18 09:17 68 130/55 03/22/18 09:16 68 130/55 03/22/18 05:32 143/65 03/22/18 05:30 98.9 79 18 143/65 (91) 94 03/21/18 22:12 153/69 03/21/18 21:00 Nasal Cannula 2.0 03/21/18 20:58 75 147/74 03/21/18 20:00 97.5 75 18 147/74 (98) 95 03/21/18 20:00 74 18 Room Air 21 03/21/18 16:00 97.4 75 18 131/66 (87) 98 03/21/18 14:24 79 132/75 (94) 03/21/18 14:23 132/75 03/21/18 12:00 98.3 73 18 124/63 (83) 96 Intake and Output 03/21/18 03/22/18 19:00 07:00 Intake Total 2860 ml 100 ml Balance 2860 ml 100 ml Intake Oral 2860 ml IV Total 100 ml # Voids 5 # Bowel Movements 1 Height (Feet): 5 Height (Inches): 10.00 Weight (Pounds): 220 Objective CV RR Lungs B wheezes Abd SNT. BS + E No CCE Mansi Gentile MD Mar 22, 2018 10:19
[2018-03-22] MEDS ORDERED: APRESOLINE50 MG ORAL (10:24)
[2018-03-22] MEDS ORDERED: OXYBUTYNIN CHLOR5 M1 ORAL (10:24)
[2018-03-22] MEDS ORDERED: GLUCOPHAGE500 MG ORAL (10:24)
[2018-03-22] MEDS ORDERED: PROLIXIN10 MG ORAL (10:24)
[2018-03-22] MEDS ORDERED: ARTANE2 MG ORAL (10:24)
[2018-03-22] MEDS ORDERED: GUAIFENESIN DM118 M1 ORAL (10:24)
[2018-03-22] MEDS ORDERED: AVAPRO150 MG ORAL (10:24)
[2018-03-22] MEDS ORDERED: CLONAZEPAM0.5 MG ORAL (10:24)
[2018-03-22] MEDS ORDERED: NEURONTIN300 MG ORAL (10:24)
[2018-03-22] MEDS ORDERED: JANUVIA100 MG ORAL (10:24)
[2018-03-22] MEDS ORDERED: PROCARDIA XL60 MG ORAL (10:24)
[2018-03-22] MEDS ORDERED: LIPITOR10 MG ORAL (10:24)
[2018-03-22] MEDS ORDERED: NORMODYNE200 MG ORAL (10:24)
[2018-03-22] MEDS ORDERED: FAMOTIDINE20 MG ORAL (10:24)
[2018-03-22] MEDS ORDERED: DUONEB 0.5-3(2.53 ML HHN (10:24)
--- NOTE | 2018-03-22 11:20 | NUR ---
*-* DISCHARGE PLANNING *--* PATIENT TO RETURN BACK TO: [facility] P:[phone] F:[phone] ROOM# 115 S/W [address]
[2018-03-22 12:00] VITALS: BP 128/59
--- NOTE | 2018-03-22 12:22 | NUR ---
Social Service Note Patient accept back at [facility] [phone]. [facility] arranged [phone].
--- NOTE | 2018-03-22 13:15 | NUR ---
NURSE NOTES: Received order to d/c to [facility]. report and belongings given to ambulance crew. IV removed prior to d/c. pt left via ambulance with no signs of distress or other issues at this time. I will f/u as needed.
--- NOTE | 2018-03-23 07:57 | Discharge Summary ---
Discharge Summary Discharge Summary _ DATE OF ADMISSION: 03/18/2018 DATE OF DISCHARGE: 03/22/2018 DISCHARGED BY: Dr. Gentile REASON FOR ADMISSION: 57 years old female with past medical history of diabetes mellitus, obesity, hypertensive cardiovascular disease, COPD, GERD, presented with gradually increasing shortness of breath. Upon evaluation she required placement on 4 L of oxygen via nasal cannula saturating 95%. Laboratory workup revealed mild leukocytosis WBC 11.6 , stable hemoglobin hematocrit. Stable renal parameters. Lactic acid 1.0. Troponin negative. EKG revealed sinus rhythm , no acute ischemic changes. Urinalysis revealed evidence of pyuria , but only few bacteria , +3 leukocyte esterase. Chest x-ray revealed no acute cardiopulmonary pathology. Patient admitted for COPD exacerbation. HOSPITAL COURSE: Patient admitted. Supplemental oxygen provided as needed to keep pulse oximetry above 90%. Pulmonary toilet provided with nebulizing therapy around the clock and as needed. Patient was started on oral steroids with gradual tapering down. Influenza screen test was negative. Blood culture preliminary were negative. Patient was on empiric antibiotic. CXR revealed no acute cardiopulmonary pathology, as mentioned above . Antitussive provided as needed Blood pressure was managed with multiply regimen of antihypertensive medications, including Procardia, Avapro, and hydralazine. B Blood pressure remained stable with current regimen. Blood sugar was managed with oral anti-glycemics: Januvia and metformin. Urine culture revealed E. coli. Patient had no urinary complaints ( no dysuria, no frequency, no suprapubic discomfort ), no fever. Patient likely had asymptomatic bacteriuria, no treatment was required. Patient clinically stabilized and was ready for discharge back to [facility] [place] for further management. FINAL DIAGNOSES: COPD exacerbation Hypertensive cardiovascular disease Diabetes mellitus Obesity DISCHARGE MEDICATIONS: See Medication Reconciliation list. DISCHARGE INSTRUCTIONS: Patient was discharged to [facility]. Follow-up with a primary care provider in 1 week. I have been assigned to dictate discharge summary for this account. I was not involved in the patient's management. Deb Bonilla NP Mar 23, 2018 07:56
== END 2018-03-22 14:00 | disposition home or self-care (01) | DRG 192 ==
LOC: EDBD 11:32 → EDUNIT# 11:32 → EMR 12:04 → 3E 15:33 → EDBEDREQ 16:33
DX: J44.1 Chronic obstructive pulmonary disease with (acute) exacerbation (principal); K21.9 Gastro-esophageal reflux disease without esophagitis; I11.9 Hypertensive heart disease without heart failure; E11.9 Type 2 diabetes mellitus without complications; Z88.1 Allergy status to other antibiotic agents; Z88.2 Allergy status to sulfonamides; Z88.8 Allergy status to other drugs, medicaments and biological substances
CPT/HCPCS: 36415; 71045; 80053; 81003; 82550; 82553; 82962; 83605; 84484; 85025; 86710; 87040; 87081; 87086; 87181; 93005; 94640; 94664; 96361; 96365; 99285; J7620

== ENCOUNTER 2019-03-31 13:30 | Inpatient (IN) | payer MEDICARE, MEDICAID ==
[~2019-03-31] VITALS: Ht 160 cm; Wt 99.3 kg
[~2019-03-31 13:30] MED LIST changes: +APRESOLINE50 MG ORAL; +ARTANE2 MG ORAL; +AVAPRO150 MG ORAL; +CLONAZEPAM0.5 MG ORAL; +DESVENLAFAXINE50 MG ORAL; +DUONEB 0.5-3(2.53 ML HHN; +FAMOTIDINE20 MG ORAL; +FLUPHENAZINE HCL5 M1 PO; +GLUCOPHAGE500 MG ORAL; +GUAIFENESIN DM118 M1 ORAL; +JANUVIA100 MG ORAL; +JANUVIA25 MG ORAL; +LIPITOR10 MG ORAL; +NEURONTIN300 MG ORAL; +OXYBUTYNIN CHLOR5 M1 ORAL; +PROCARDIA XL60 MG ORAL; +PROLIXIN10 MG ORAL
[2019-03-31 13:38] VITALS: BP 121/63
[2019-03-31] MEDS ORDERED: Albuterol/Ipratropium 3ml neb HHN ONE (13:45)
--- NOTE | 2019-03-31 13:48 | Emergency Room Report ---
History of Present Illness General Chief Complaint: Earache Present Illness HPI Patient is a 58-year-old female brought in by [facility] after reportedly bleeding from her ear. Patient had noticed some blood on her pillow earlier in the day. She reports having discomfort to the left ear. Reportedly had been having a nonproductive cough. She is sent in from [facility].Patient does not currently taking any anticoagulation.Patient was stented by Dr. Saldana. Previously had been taking Klonopin is also diabetic and takes Januvia and metformin. Takes Lasix 20 mg daily.Patient takes albuterol. Patient did reports having some ear pain. Allergies: Coded Allergies: METRONIDAZOLE (Unverified Allergy, Severe, 04/14/17) vomiting, rash SULFA (SULFONAMIDE ANTIBIOTICS) (Unverified Allergy, Severe, 07/24/17) RASH ALL OVER THE BODY, SWELLING SULFAMETHOXAZOLE (Unverified Allergy, Unknown, 11/25/17) TRIMETHOPRIM (Unverified Allergy, Unknown, 11/25/17) Patient History Past Medical History: see triage record Now: No Reviewed Nursing Documentation: PMH: Agreed; PSxH: Agreed Nursing Documentation-PMH Hx Cardiac Problems: Yes Hx Hypertension: Yes Hx COPD: Yes Hx Diabetes: Yes - DM II Hx Cancer: Yes - skin CA Hx Gastrointestinal Problems: Yes Hx Neurological Problems: No Review of Systems All Other Systems: negative except mentioned in HPI Physical Exam Vital Signs Date Time Temp Pulse Resp B/P (MAP) Pulse Ox O2 Delivery O2 Flow Rate FiO2 03/31/19 13:38 98.1 73 18 121/63 (82) 97 Room Air Sp02 EP Interpretation: reviewed, normal General Appearance: normal inspection, well appearing, no apparent distress, alert, GCS 15, obese Head: atraumatic ENT: normal ENT inspection, hearing grossly normal, normal voice, TMs + canals normal Neck: normal inspection, full range of motion, supple, no bony tend Respiratory: normal inspection, lungs clear, normal breath sounds, no respiratory distress, no retraction, no wheezing Cardiovascular #1: regular rate, rhythm, no edema Gastrointestinal: normal inspection, normal bowel sounds, non tender, soft, no guarding, no hernia Genitourinary: no CVA tenderness Musculoskeletal: normal inspection, back normal, normal range of motion Neurologic: alert, motor strength/tone normal, hotel lobby concierge III-XII nml as tested, oriented x3, responsive, speech normal, normal inspection Psychiatric: normal inspection, judgement/insight normal, mood/affect normal Medical Decision Making Diagnostic Impression: Primary Impression: Ulcerative colitis Additional Impression: Hyponatremia ER Course Presented after increased left-sided ear pain as well as reported blood on her pillow.. Differential diagnosis include was not limited to GI bleed,contusion, fracture, fall, head injury, among others. Patient's TMs show no evidence of any bleeding from her ears. I do not see any evidence of external scalp laceration. As she does have some prior history of ulcerative colitis. Laboratory testing was ordered.Patient's initial laboratory testing showed some hyponatremia. Initial hemoglobin appeared to be normal. Dr. Jay James was contacted for inpatient management due to possible hematemesis. Last Vital Signs Date Time Temp Pulse Resp B/P (MAP) Pulse Ox O2 Delivery O2 Flow Rate FiO2 03/31/19 13:38 98.1 73 18 121/63 (82) 97 Room Air Status: improved Disposition: ADMITTED INPATIENT Condition: Stable David Florian MD Mar 31, 2019 13:48
--- NOTE | 2019-03-31 13:48 | NUR ---
ED Nurse Note: PT BROUGHT IN BY AMBULANCE FROM [facility] DUE TO LEFT EARACHE. PER PT, SHE SAW BLOOD ON HER PILLOW THIS MORNING THAT MIGHT HAVE CAME OUT FROM HER LEFT EAR. AAON X4, FOLLOWS COMMANDS. NO BLOOD NOTED ON LEFT EAR UPON ED ARRIVAL
--- NOTE | 2019-03-31 14:49 | NUR ---
ED Nurse Note: COLLECTED BLOOD THEN SENT.
[2019-03-31 15:05] LABS: BASOPHILS % (AUTO) 1.4 % (0.0-2.0); EOSINOPHILS % (AUTO) 2.6 % (0.0-3.0); HEMATOCRIT 35.7 % (37.0-47.0); HEMOGLOBIN 12.5 G/DL (12.0-16.0); LYMPHOCYTES % (AUTO) 22.6 % (20.0-45.0); MEAN CORPUSCULAR VOLUME 86 FL (80-99); MONOCYTES % (AUTO) 8.5 % (1.0-10.0); NEUTROPHILS % (AUTO) 64.8 % (45.0-75.0); PLATELET COUNT 310 K/UL (150-450); RED BLOOD COUNT 4.14 M/UL (4.20-5.40); RED CELL DISTRIBUTION WIDTH 11.9 % (11.6-14.8); WHITE BLOOD COUNT 9.2 K/UL (4.8-10.8)
[2019-03-31 15:14] LABS: ANION GAP 9 mmol/L (5-15); BLOOD UREA NITROGEN 6 mg/dL (7-18); CALCIUM 8.9 MG/DL (8.5-10.1); CARBON DIOXIDE 26 MMOL/L (21-32); CHLORIDE 95 MMOL/L (98-107); CREATININE 0.6 MG/DL (0.55-1.30); POTASSIUM 4.4 MMOL/L (3.5-5.1); SODIUM 130 MMOL/L (136-145)
[2019-03-31 15:17] LABS: INR 0.9 (0.9-1.1)
--- NOTE | 2019-03-31 15:17 | Diagnostic Imaging Report ---
Indication: Dyspnea Comparison: 03/18/2018 A single view chest radiograph was obtained. Findings: No definite infiltrate or pulmonary vascular congestion identified. The heart is enlarged. The bones are osteopenic. Impression: No acute disease
[2019-03-31 15:19] LABS: ALANINE AMINOTRANSFERASE 32 U/L (12-78); ALBUMIN 3.7 G/DL (3.4-5.0); ALKALINE PHOSPHATASE 83 U/L (46-116); ASPARTATE AMINO TRANSFERASE 22 U/L (15-37); BILIRUBIN,TOTAL 0.2 MG/DL (0.2-1.0)
[2019-03-31 16:30] VITALS: BP 133/70
[2019-03-31 16:41] LABS: APPEARANCE,URINE CLEAR; BILIRUBIN, URINE NEGATIVE (NEGATIVE); COLOR,URINE PALE YELLOW; GLUCOSE, URINE (UA) NEGATIVE (NEGATIVE); KETONES,URINE NEGATIVE (NEGATIVE); LEUKOCYTE ESTERASE ,URINE NEGATIVE (NEGATIVE); NITRITE,URINE NEGATIVE (NEGATIVE); PH,URINE 8 (4.5-8.0); PROTEIN,URINE NEGATIVE (NEGATIVE); UROBILINOGEN,URINE NORMAL MG/DL (0.0-1.0)
[2019-03-31] MEDS ORDERED: HYDROcodone/Acetamin 5/325 tab ORAL ONE (17:15)
[2019-03-31] MEDS ORDERED: FUROSEMIDE20 M1 ORAL (17:18)
[2019-03-31] MEDS ORDERED: MICARDIS80 MG ORAL (17:18)
--- NOTE | 2019-03-31 17:57 | NUR ---
ED Nurse Note: REPORT GIVEN TO LEXII MELCHOR OF MED SURG UNIT.
--- NOTE | 2019-03-31 18:29 | NUR ---
NURSE NOTES: Admitted 58F from ER with stable condition. pt is a/ox4. Breathing regular and unlabored. pt is under medical supervision of dr. Vasquez for (L)ear pain. no bleeding noted at this time. Able to verbalize needs. all belongings checked and kept at bedside. Body assessment done and no skin issue noted. Bed in lowest position. call light within reach. will follow up with admit order.
--- NOTE | 2019-03-31 19:20 | NUR ---
NURSE NOTES: received endorsement from becki patton that she did checked the belongings and check the body for any skin issues. the previous nurse sent the home meds to the pharmacy. receipt on the chart. nurse received patient on bed, awake and verbally responsive. respirations even and unlabored no sob. denies any pain or discomfort. per previous nurse there is no skin issues noted. belongings was in the bedside. oriented to the room set up and hospital protocol. paged dr. li awaiting for call back. needs attended andmet. provided rest and comfort. bed locked and in lowest position. call light and light button within easy reach. vital signs of 135/81mmhg, 91bpm, 98.0F,19 cpm, 95%.
--- NOTE | 2019-03-31 19:32 | NUR ---
HAND-OFF: Report given to JILL Vance .
--- NOTE | 2019-03-31 21:04 | NUR ---
NURSE NOTES: received a call back from dr. li with an order to continue home meds, same diet and code, cbc and cmp tomorrow morning. carried out. called the facility regarding her previous diet and code. spoke to the facility staff and states that "we need to call for tomorrow morning at 9am to obtain information there is no licensed nurse at the moment." code and diet was based on the previous hospital visit. charge nurse made aware.
[2019-03-31] MEDS ORDERED: HydrALAZINE 25mg tab ORAL PRN (21:30)
[2019-03-31] MEDS ORDERED: Guaifenesin/DM 10ml syrup ORAL PRN (21:45)
[2019-03-31] MEDS: HYDROcodone/Acetamin 5/325 tab ORAL PRN (22:16)
[2019-04-01] VITALS (7 sets, daily range): BP systolic 105–167; BP diastolic 54–101
[2019-04-01] MEDS ORDERED: Albuterol 90mcg Inhaler 8gm INH SCH
[2019-04-01] MEDS: HYDROcodone/Acetamin 5/325 tab ORAL PRN ×2 (05:27→12:55)
[2019-04-01] MEDS ORDERED: Albuterol 90mcg Inhaler 8gm INH PRN (06:30)
[2019-04-01 06:47] LABS: BASOPHILS % (AUTO) 1.1 % (0.0-2.0); EOSINOPHILS % (AUTO) 2.5 % (0.0-3.0); HEMATOCRIT 38.3 % (37.0-47.0); HEMOGLOBIN 13.1 G/DL (12.0-16.0); LYMPHOCYTES % (AUTO) 27.7 % (20.0-45.0); MEAN CORPUSCULAR VOLUME 86 FL (80-99); MONOCYTES % (AUTO) 10.1 % (1.0-10.0); NEUTROPHILS % (AUTO) 58.6 % (45.0-75.0); PLATELET COUNT 316 K/UL (150-450); RED BLOOD COUNT 4.45 M/UL (4.20-5.40); RED CELL DISTRIBUTION WIDTH 12.2 % (11.6-14.8); WHITE BLOOD COUNT 8.8 K/UL (4.8-10.8)
[2019-04-01 07:32] LABS: ALANINE AMINOTRANSFERASE 30 U/L (12-78); ALBUMIN 3.6 G/DL (3.4-5.0); ALKALINE PHOSPHATASE 71 U/L (46-116); ANION GAP 10 mmol/L (5-15); ASPARTATE AMINO TRANSFERASE 22 U/L (15-37); BILIRUBIN,TOTAL 0.3 MG/DL (0.2-1.0); BLOOD UREA NITROGEN 6 mg/dL (7-18); CALCIUM 8.9 MG/DL (8.5-10.1); CARBON DIOXIDE 26 MMOL/L (21-32); CHLORIDE 97 MMOL/L (98-107); CHOLESTEROL 112 MG/DL (< 200); CREATININE 0.6 MG/DL (0.55-1.30); HDL CHOLESTEROL 65 MG/DL (40-60); PHOSPHORUS 4.5 MG/DL (2.5-4.9); POTASSIUM 4.1 MMOL/L (3.5-5.1); SODIUM 133 MMOL/L (136-145); TRIGLYCERIDES 64 MG/DL (30-150)
--- NOTE | 2019-04-01 07:35 | NUR ---
NURSE NOTES: Received report from Vickie Vance RN. Patient sitting up in bed eating breakfast. On room air, no signs of distress or labored breathing. IV intact, patent, and infusing IV fluids. Bed in lowest position with call light in reach. Will continue with plan of care.
--- NOTE | 2019-04-01 07:36 | NUR ---
HAND-OFF: Report given to becki naqvi.
--- NOTE | 2019-04-01 08:12 | General Progress Note ---
Assessment/Plan Assessment/Plan: GI CONSULT Dictated Assessment - reported history of UC, extent not clear, off meds Recommendations - follow symptoms conservatively - advised to get another colonoscopy as outpatient - monitor for rectal bleeding Thank you Solomon Manuel Subjective Allergies: Coded Allergies: METRONIDAZOLE (Unverified Allergy, Severe, 04/14/17) vomiting, rash SULFA (SULFONAMIDE ANTIBIOTICS) (Unverified Allergy, Severe, 07/24/17) RASH ALL OVER THE BODY, SWELLING SULFAMETHOXAZOLE (Unverified Allergy, Unknown, 11/25/17) TRIMETHOPRIM (Unverified Allergy, Unknown, 11/25/17) Objective Last 24 Hour Vital Signs Date Time Temp Pulse Resp B/P (MAP) Pulse Ox O2 Delivery O2 Flow Rate FiO2 04/01/19 07:14 72 18 92 Room Air 21 04/01/19 05:57 98.3 04/01/19 04:00 98.3 75 20 140/82 (101) 98 04/01/19 00:00 98.1 65 20 147/54 (85) 93 03/31/19 23:55 Room Air 21 03/31/19 23:54 Room Air 21 03/31/19 22:24 Room Air 03/31/19 16:30 98.5 80 16 133/70 100 Room Air 03/31/19 14:09 74 18 100 Room Air 21 78 20 99 03/31/19 13:38 98.1 73 18 121/63 97 Room Air 03/31/19 13:38 98.1 73 18 121/63 (82) 97 Room Air Intake and Output 03/31/19 04/01/19 19:00 07:00 Intake Total 0 ml 1010 ml Balance 0 ml 1010 ml Intake Oral 0 ml 650 ml Other 360 ml # Voids 7 Laboratory Tests 03/31/19 14:45: White Blood Count 9.2, Red Blood Count 4.14L, Hemoglobin 12.5, Hematocrit 35.7L , Mean Corpuscular Volume 86, Mean Corpuscular Hemoglobin 30.2, Mean Corpuscular Hemoglobin Concent 35.1, Red Cell Distribution Width 11.9, Platelet Count 310, Mean Platelet Volume 5.9L, Neutrophils (%) (Auto) 64.8, Lymphocytes ( %) (Auto) 22.6, Monocytes (%) (Auto) 8.5, Eosinophils (%) (Auto) 2.6, Basophils (%) (Auto) 1.4, Prothrombin Time 9.4, Prothromb Time International Ratio 0.9, Activated Partial Thromboplast Time 29, Sodium Level 130L, Potassium Level 4.4, Chloride Level 95L, Carbon Dioxide Level 26, Anion Gap 9, Blood Urea Nitrogen 6L , Creatinine 0.6, Estimat Glomerular Filtration Rate > 60, Glucose Level 148H, Calcium Level 8.9, Total Bilirubin 0.2, Aspartate Amino Transf (AST/SGOT) 22, Alanine Aminotransferase (ALT/SGPT) 32, Alkaline Phosphatase 83, Troponin I 0.000, Total Protein 7.3, Albumin 3.7, Globulin 3.6, Albumin/Globulin Ratio 1.0 , Lipase 70L 03/31/19 15:50: Urine Color Pale yellow, Urine Appearance Clear, Urine pH 8, Urine Specific [place] 1.015, Urine Protein Negative, Urine Glucose (UA) Negative, Urine Ketones Negative, Urine Blood Negative, Urine Nitrite Negative, Urine Bilirubin Negative, Urine Urobilinogen Normal, Urine Leukocyte Esterase Negative 03/31/19 16:00: Urine Osmolality 169L, Urine Random Sodium 27 04/01/19 05:50: White Blood Count 8.8, Red Blood Count 4.45, Hemoglobin 13.1, Hematocrit 38.3, Mean Corpuscular Volume 86, Mean Corpuscular Hemoglobin 29.5, Mean Corpuscular Hemoglobin Concent 34.2, Red Cell Distribution Width 12.2, Platelet Count 316, Mean Platelet Volume 5.7L, Neutrophils (%) (Auto) 58.6, Lymphocytes (%) (Auto) 27.7, Monocytes (%) (Auto) 10.1H, Eosinophils (%) (Auto) 2.5, Basophils (%) ( Auto) 1.1, Sodium Level 133L, Potassium Level 4.1, Chloride Level 97L, Carbon Dioxide Level 26, Anion Gap 10, Blood Urea Nitrogen 6L, Creatinine 0.6, Estimat Glomerular Filtration Rate > 60, Glucose Level 129H, Calcium Level 8.9, Total Bilirubin 0.3, Aspartate Amino Transf (AST/SGOT) 22, Alanine Aminotransferase ( ALT/SGPT) 30, Alkaline Phosphatase 71, Total Protein 7.2, Albumin 3.6, Globulin 3.6, Albumin/Globulin Ratio 1.0, Hemoglobin A1c 7.0H, Osmolality 279L, Uric Acid 3.8, Phosphorus Level 4.5, Magnesium Level 1.8, Triglycerides Level 64, Cholesterol Level 112, LDL Cholesterol 35, HDL Cholesterol 65H, Cholesterol/HDL Ratio 1.7L, Thyroid Stimulating Hormone (TSH) 2.702 Height (Feet): 5 Height (Inches): 3.00 Weight (Pounds): 219 Zak Manuel MD Apr 01, 2019 08:12
[2019-04-01] MEDS: clonazePAM 0.5mg tab ORAL SCH ×3 (08:41→18:35)
[2019-04-01] MEDS: HydrALAZINE 50mg tab ORAL SCH ×4 (08:41→23:48)
[2019-04-01] MEDS ORDERED: Labetalol 200mg tab ORAL SCH (09:00)
[2019-04-01] MEDS ORDERED: Trihexyphenidyl 2mg tab ORAL SCH (09:00)
[2019-04-01] MEDS: NovoLOG Insulin Flexpen SUBQ SCH ×3 (11:30→20:23)
--- NOTE | 2019-04-01 12:01 | NUR ---
CASE MANAGEMENT:INITIAL REVIEW 58 YR OLD FEMALE BIBA FROM [facility] CC;EARACHE SI;HYPONATREMIA. BRONCHITIS. 98.5 80 20 155/101 92% ON RA FIO2 21% NA 130 CL 95 UA - NEGATIVE CXR - NEGATIVE IS;DANA BLEVINS HHN X1 ADMITTED TO MED SURG MED SURG STATUS DCP;TO [facility]
[2019-04-01] MEDS: Trihexyphenidyl 2mg tab ORAL SCH ×2 (12:24→18:35)
--- NOTE | 2019-04-01 12:38 | Consultation ---
Consult Note Consult Note asked to evaluate at the request of Dr James for low Na and BP management Patient poor historian: when asked medical history , she responds by: I didnt hurt my daughter ! ER: Patient is a 58-year-old female brought in by [facility] after reportedly bleeding from her ear. Patient had noticed some blood on her pillow earlier in the day. She reports having discomfort to the left ear. Reportedly had been having a nonproductive cough. She is sent in from [facility].Patient does not currently taking any anticoagulation.Patient was stented by Dr. Saldana. Previously had been taking Klonopin is also diabetic and takes Januvia and metformin. Takes Lasix 20 mg daily.Patient takes albuterol. Patient did reports having some ear pain. Allergies: METRONIDAZOLE (Unverified Allergy, Severe, 04/14/17) vomiting, rash SULFA (SULFONAMIDE ANTIBIOTICS) (Unverified Allergy, Severe, 07/24/17) RASH ALL OVER THE BODY, SWELLING SULFAMETHOXAZOLE (Unverified Allergy, Unknown, 11/25/17) TRIMETHOPRIM (Unverified Allergy, Unknown, 11/25/17) Hx Cardiac Problems: Yes Hx Hypertension: Yes Hx COPD: Yes Hx Diabetes: Yes - DM II Hx Cancer: Yes - skin CA Hx Gastrointestinal Problems: Yes Hx Neurological Problems: No o/e Obese, NAD, confused Assessment/Plan Encephalopathy ? Metabolic Mild Low Na Obese DM HTN Psych history change diet per psych adjust BP meds per orders Nikita Herrera MD Apr 01, 2019 12:38
[2019-04-01] MEDS: Labetalol 200mg tab ORAL SCH ×2 (12:55→18:35)
--- NOTE | 2019-04-01 14:47 | NUR ---
HAND-OFF: Report given to JILL Laughlin. Rounds done. Patient stable.
--- NOTE | 2019-04-01 15:45 | Consultation ---
DATE OF CONSULTATION: 04/01/2019 GASTROENTEROLOGY CONSULTATION CONSULTING PHYSICIAN: Zak Manuel M.D. CHIEF COMPLAINT: I was asked to see this patient for evaluation of ulcerative colitis. HISTORY OF PRESENT ILLNESS: The patient is a 58-year-old woman who is a poor historian who was brought into the hospital for evaluation and admitted. She gives disconnected answers when questioned. At one point, she states she is here for gastrointestinal issues, but then she stated she is here because she is having problems with her roommate and then reports in the chart states there is problem with earache and blood from the ear. The patient stated she has had a history of ulcerative colitis although details are not clear. She has been seen before here by Dr. Booth and has a colonoscopy on file from 2015 showing two tubular adenomas, which were removed. Colonic preparation was poor. The patient states she was on Apriso in the past, but she has been off of this for months. She denies any diarrhea. She also denies hematochezia to me. She takes fiber intermittently for her bowel habits. PAST MEDICAL HISTORY: History of ulcerative colitis, COPD, diabetes mellitus, goiter, bipolar disorder, history of uterine cancer, which is recent. FAMILY HISTORY: Noncontributory. SOCIAL HISTORY: The patient is . She has 2 children. She does not smoke. REVIEW OF SYSTEMS: Otherwise negative. ALLERGIES: Metronidazole, sulfa, and trimethoprim. PHYSICAL EXAMINATION: GENERAL: Obese, woman, who is easily agitated just by questioning. HEENT: Normocephalic, atraumatic. NECK: Supple. CHEST: Revealed coarse breath sounds. CARDIOVASCULAR: Revealed a regular rate. ABDOMEN: Soft, obese with good bowel sounds. There is no organomegaly or tenderness. EXTREMITIES: Revealed trace edema bilaterally and some venous stasis changes. LABORATORY DATA: Noted. ASSESSMENT: This patient has vague self-reported history of colitis although details and extent are not clear. She should undergo a colonoscopy at some point with colonic biopsies throughout to evaluate the lining and screen for dysplasia. At this time, however, she appears stable. Has no significant diarrhea and her blood count was normal. This can be deferred to an outpatient setting. She should be evaluated for the bleeding from the ears and her cough and COPD. RECOMMENDATIONS: Per above discussion and per orders written in the chart. Thank you for asking me to participate in the care of this patient. Zak Manuel M.D. DR: MIRA JOB#: [id number] CC:
[2019-04-01] MEDS: metFORMIN 500mg tab ORAL SCH (16:30)
--- NOTE | 2019-04-01 19:20 | NUR ---
NURSE NOTES: Pt received in bed asleep, IV fluids running, able to make needs known, call light within reach, will continue to monitor.
[2019-04-01] MEDS ORDERED: metFORMIN 500mg tab ORAL SCH (21:00)
[2019-04-02] VITALS (7 sets, daily range): BP systolic 137–186; BP diastolic 65–97
--- NOTE | 2019-04-02 00:30 | History and Physical Report ---
DATE OF ADMISSION: 03/31/2019 HISTORY OF PRESENT ILLNESS: The patient is admitted for hyponatremia and bronchitis. The patient lives in assisted living . According to the staff, the patient was woken up and was found to have blood on her pillow. The patient is complaining of mild cough that is productive for the past couple days. No shortness of breath. No wheezing. The patient has history of smoking. Also, is complaining of chills and weakness. The patient also has history of ulcerative colitis. The patient is also admitted for hyponatremia. The patient denies nausea, vomiting, or diarrhea. Denies orthopnea. Denies constipation as well. PAST MEDICAL HISTORY: Significant for anxiety, ulcerative colitis, leg edema, obesity, hypertension, urinary incontinence, hyperlipidemia, NIDDM, history of colon polyps, and sleep apnea. History for chronic pain syndrome. ALLERGIES: To Flagyl, sulfa. MEDICATIONS: Klonopin, desvenlafaxine, gabapentin, hydralazine, oxybutynin, Januvia, Micardis. FAMILY HISTORY: Does have history of diabetes, hypertension. SOCIAL HISTORY: She has history of smoking. Denies history of drug or alcohol abuse. Lives in assisted living. FAMILY HISTORY: Noncontributory. REVIEW OF SYSTEMS: HEENT: Denies headaches. RESPIRATORY: Reports shortness of breath, cough, and wheezing for couple of days that is productive. CARDIOVASCULAR: Denies chest pain. Denies orthopnea. GASTROINTESTINAL: Denies nausea, vomiting, or diarrhea. Denies constipation. EXTREMITIES: She does have back pain, which is chronic. CENTRAL NERVOUS SYSTEM: Denies change in vision or speech pattern. PHYSICAL EXAMINATION: VITAL SIGNS: Temperature is 97.9, pulse is 79, blood pressure 160/83. HEENT: PERRLA. NECK: Supple. No lymphadenopathy. CHEST: Clear to auscultation. CARDIOVASCULAR: Regular rate and rhythm. No murmurs or extra sounds. The patient is obese. GASTROINTESTINAL: Soft, nontender. Positive bowel sounds. No organomegaly. EXTREMITIES: 1+ edema. changes compatible with chronic venous stasis in the lower extremities. The patient is usually wheelchair bound. Dorsal pedal pulses are present. No discoloration in the lower extremity in toes. In feet, there is no discoloration noted. The patient has generalized weakness. LABORATORY DATA: WBC of 9.2, hemoglobin 12.5, and platelets of 310,000. Sodium 130, potassium 4.4, BUN of 6, creatinine of 0.6, and glucose of 148. ASSESSMENT AND PLAN: 1. Hyponatremia. I have asked Dr. Herrera to see the patient for the hyponatremia. 2. Bronchitis, flare because of smoking. I have asked Dr. Pavel Britt to see the patient for the management of bronchitis and Dr. Manuel has been consulted for the history of ulcerative colitis as well as Dr. Salty Kendall has been consulted as well to rule out relative source of bleeding is coming and to make sure the patient has no history of cancer. Dr. Herrera also has been consulted for the hyponatremia. We will monitor the patient closely. Antibiotics per Dr. Pavel Britt. Jay Vasquez M.D. DR: WHIT JOB#: [id number] CC:
--- NOTE | 2019-04-02 00:30 | Consultation ---
DATE OF CONSULTATION: 04/01/2019 INFECTIOUS DISEASE CONSULTATION CONSULTING PHYSICIAN: Pavel Britt M.D. PRIMARY ATTENDING PHYSICIAN: Jay Vasquez M.D. REASON FOR CONSULTATION: COPD. HISTORY OF PRESENT ILLNESS: This is a 58-year-old female admitted yesterday from a [facility] care facility because of left ear discomfort. She stated that there was blood on pillow. The patient also has COPD and smoker. At the time of admission, there was no blood in the ears. PAST MEDICAL HISTORY: COPD, diabetes mellitus, obesity, hypertension, has history of goiter. ALLERGIES: Allergic to sulfa, metronidazole. MEDICATION: Getting atorvastatin, fluphenazine, Glucophage, trihexyphenidyl, insulin, clonazepam, Lasix, Januvia, labetalol, Robitussin, [place], hydralazine. SOCIAL HISTORY: prison resident. Smoker. Denies alcohol or drug abuse. . She has two children. PAST SURGICAL HISTORY: Has history of cholecystectomy and two C-sections. REVIEW OF SYSTEMS: No fever. No chills. Feels she has some weight gain. No nausea. No vomiting. No abdominal pain at this time. The patient has some dry coughing. No problem passing urine. PHYSICAL EXAMINATION: VITAL SIGNS: Temperature 96.5, pulse 77, blood pressure 157/101. GENERAL APPEARANCE: Obese, seems depressed. HEAD AND NECK: Hypertrophy of nasal mucosa. Slightly dry mouth. No bleeding from ears. HEART: Normal rate. LUNGS: Clear. ABDOMEN: Soft, obese. EXTREMITIES: Trace to mild edema of lower extremities. LABORATORY AND DIAGNOSTIC DATA: Sodium 133, potassium 4.1, chloride 97, bicarbonate 26, BUN 6, creatinine 0.6, glucose 129. Hemoglobin A1c 7. Lipase is 70. WBC 8.8, hemoglobin 13.1, hematocrit 38.3, and platelets is 316,000. UA was negative. Chest x-ray showed no acute disease. IMPRESSION: COPD, relatively stable. She may have bronchitis. She has diabetes mellitus, obesity, hypertension, history of psychiatric problem, depression, vague history of ulcerative colitis. RECOMMENDATIONS: Observe off antibiotic. We will follow up the clinical course. At the end of my exam, I thank Dr. Vasquez for involving me in the care of this patient. Pavel Britt M.D. DR: ZAHIRA JOB#: [id number] CC: JENY
[2019-04-02] MEDS: HYDROcodone/Acetamin 5/325 tab ORAL PRN ×4 (04:44→23:31)
[2019-04-02 06:10] LABS: BASOPHILS % (AUTO) 1.5 % (0.0-2.0); EOSINOPHILS % (AUTO) 1.7 % (0.0-3.0); HEMATOCRIT 38.6 % (37.0-47.0); HEMOGLOBIN 13.2 G/DL (12.0-16.0); LYMPHOCYTES % (AUTO) 29.7 % (20.0-45.0); MEAN CORPUSCULAR VOLUME 86 FL (80-99); MONOCYTES % (AUTO) 8.9 % (1.0-10.0); NEUTROPHILS % (AUTO) 58.3 % (45.0-75.0); PLATELET COUNT 293 K/UL (150-450); RED BLOOD COUNT 4.46 M/UL (4.20-5.40); RED CELL DISTRIBUTION WIDTH 12.3 % (11.6-14.8); WHITE BLOOD COUNT 8.4 K/UL (4.8-10.8)
[2019-04-02] MEDS: NovoLOG Insulin Flexpen SUBQ SCH ×4 (06:30→20:47)
[2019-04-02] MEDS: metFORMIN 500mg tab ORAL SCH ×3 (06:31→17:35)
--- NOTE | 2019-04-02 06:31 | General Progress Note ---
Assessment/Plan Assessment/Plan: COPD, ?bronchitis. diabetes mellitus, obesity, hypertension, history of psychiatric problem, depression, vague history of ulcerative colitis. asymptomatic GI stand point needs out patient fu with GI will fu abx per ID Subjective ROS Limited/Unobtainable: Yes Allergies: Coded Allergies: METRONIDAZOLE (Unverified Allergy, Severe, 04/14/17) vomiting, rash SULFA (SULFONAMIDE ANTIBIOTICS) (Unverified Allergy, Severe, 07/24/17) RASH ALL OVER THE BODY, SWELLING SULFAMETHOXAZOLE (Unverified Allergy, Unknown, 11/25/17) TRIMETHOPRIM (Unverified Allergy, Unknown, 11/25/17) Objective Last 24 Hour Vital Signs Date Time Temp Pulse Resp B/P (MAP) Pulse Ox O2 Delivery O2 Flow Rate FiO2 04/02/19 02:23 165/68 04/02/19 00:00 98.0 80 16 165/68 (100) 93 04/01/19 23:48 167/80 04/01/19 21:00 Room Air 04/01/19 21:00 Room Air 04/01/19 20:00 97.8 74 18 167/80 (109) 93 04/01/19 19:42 68 18 93 Room Air 21 04/01/19 18:35 76 151/90 04/01/19 18:30 98.2 76 24 151/90 (110) 95 04/01/19 12:55 79 160/83 04/01/19 12:25 160/83 04/01/19 12:00 97.9 79 24 160/83 (108) 97 04/01/19 09:00 Room Air 04/01/19 08:41 77 157/101 04/01/19 08:41 157/101 04/01/19 08:00 96.5 77 24 157/101 (119) 95 04/01/19 07:14 72 18 92 Room Air 21 Intake and Output 04/01/19 04/02/19 19:00 07:00 Intake Total 250 ml Balance 250 ml Intake Oral 250 ml # Voids 5 # Bowel Movements 1 Laboratory Tests 04/02/19 05:35: White Blood Count 8.4, Red Blood Count 4.46, Hemoglobin 13.2, Hematocrit 38.6, Mean Corpuscular Volume 86, Mean Corpuscular Hemoglobin 29.5, Mean Corpuscular Hemoglobin Concent 34.1, Red Cell Distribution Width 12.3, Platelet Count 293, Mean Platelet Volume 5.7L, Neutrophils (%) (Auto) 58.3, Lymphocytes (%) (Auto) 29.7, Monocytes (%) (Auto) 8.9, Eosinophils (%) (Auto) 1.7, Basophils (%) (Auto ) 1.5, Sodium Level [Pending], Potassium Level [Pending], Chloride Level [ Pending], Carbon Dioxide Level [Pending], Blood Urea Nitrogen [Pending], Creatinine [Pending], Estimat Glomerular Filtration Rate [Pending], Glucose Level [Pending], Uric Acid [Pending], Calcium Level [Pending], Phosphorus Level [Pending], Magnesium Level [Pending], Total Bilirubin [Pending], Aspartate Amino Transf (AST/SGOT) [Pending], Alanine Aminotransferase (ALT/SGPT) [Pending] , Alkaline Phosphatase [Pending], Total Protein [Pending], Albumin [Pending], Globulin [Pending] Height (Feet): 5 Height (Inches): 3.00 Weight (Pounds): 219 General Appearance: alert EENT: PERRL/EOMI Neck: supple Cardiovascular: normal rate Respiratory/Chest: lungs clear Abdomen: normal bowel sounds, non tender, soft Extremities: non-tender Miguel Booth MD Apr 02, 2019 06:31
[2019-04-02] MEDS: HydrALAZINE 50mg tab ORAL SCH ×3 (06:32→21:13)
[2019-04-02 06:44] LABS: ALANINE AMINOTRANSFERASE 26 U/L (12-78); ALBUMIN 3.5 G/DL (3.4-5.0); ALKALINE PHOSPHATASE 65 U/L (46-116); ANION GAP 9 mmol/L (5-15); ASPARTATE AMINO TRANSFERASE 19 U/L (15-37); BILIRUBIN,TOTAL 0.2 MG/DL (0.2-1.0); BLOOD UREA NITROGEN 6 mg/dL (7-18); CARBON DIOXIDE 24 MMOL/L (21-32); CHLORIDE 103 MMOL/L (98-107); CREATININE 0.6 MG/DL (0.55-1.30); PHOSPHORUS 5.6 MG/DL (2.5-4.9); POTASSIUM 4.2 MMOL/L (3.5-5.1); SODIUM 136 MMOL/L (136-145)
--- NOTE | 2019-04-02 07:35 | NUR ---
HAND-OFF: Report given to JILL Pineda.
--- NOTE | 2019-04-02 07:38 | NUR ---
NURSE NOTES: Received report from JILL Leonard. Patient sitting up in bed, eating breakfast. On room air, no signs of distress or labored breathing. IV intact, patent, and infusing IV fluids. Bed in lowest position with call barney charles. Will continue with plan of care.
[2019-04-02] MEDS: clonazePAM 0.5mg tab ORAL SCH ×3 (09:47→17:36)
[2019-04-02] MEDS: Labetalol 200mg tab ORAL SCH ×3 (09:47→17:35)
[2019-04-02] MEDS: Trihexyphenidyl 2mg tab ORAL SCH ×3 (09:48→17:36)
[2019-04-02] MEDS: Lisinopril 10mg tab ORAL SCH (09:48)
--- NOTE | 2019-04-02 11:00 | Nephrology Progress Note ---
Assessment/Plan Problem List: (1) Hyponatremia (2) Sleep apnea (3) DMII (diabetes mellitus, type 2) (4) HTN (hypertension) Assessment Encephalopathy ? Metabolic Mild Low Na Obese DM HTN Psych history Plan change diet to diabetic per psych adjust BP meds per orders Subjective ROS Limited/Unobtainable: No Constitutional: Reports: malaise Objective Objective Last 24 Hour Vital Signs Date Time Temp Pulse Resp B/P (MAP) Pulse Ox O2 Delivery O2 Flow Rate FiO2 04/02/19 09:48 137/67 04/02/19 09:47 91 137/67 04/02/19 09:00 Room Air 04/02/19 08:26 76 18 96 Room Air 21 04/02/19 08:00 97.9 91 20 137/67 (90) 98 04/02/19 06:32 167/85 04/02/19 04:00 99.5 80 24 186/97 (126) 99 04/02/19 02:23 165/68 04/02/19 00:00 98.0 80 16 165/68 (100) 93 04/01/19 23:48 167/80 04/01/19 21:00 Room Air 04/01/19 21:00 Room Air 04/01/19 20:00 97.8 74 18 167/80 (109) 93 04/01/19 19:42 68 18 93 Room Air 21 04/01/19 18:35 76 151/90 04/01/19 18:30 98.2 76 24 151/90 (110) 95 04/01/19 12:55 79 160/83 04/01/19 12:25 160/83 04/01/19 12:00 97.9 79 24 160/83 (108) 97 Intake and Output 04/01/19 04/02/19 19:00 07:00 Intake Total 250 ml 700 ml Balance 250 ml 700 ml Intake Oral 250 ml 700 ml # Voids 5 # Bowel Movements 1 Current Medications Medications (Trade) Dose Ordered Sig/Bogdan Route PRN Reason Start Time Stop Time Status Last Admin Dose Admin Acetaminophen/ Hydrocodone Bitart ([place] 5/325) 1 tab Q6H PRN ORAL For Pain 03/31/19 21:45 04/07/19 21:44 04/02/19 04:44 Albuterol Sulfate (Proventil MDI) 1 puff Q6H PRN INH Shortness of Breath 04/01/19 06:30 05/01/19 00:00 Atorvastatin Calcium (Lipitor) 5 mg BEDTIME ORAL 04/01/19 21:00 05/01/19 20:59 04/01/19 20:21 Clonazepam (KlonoPIN) 0.5 mg TID ORAL 04/01/19 09:00 04/08/19 08:59 04/02/19 09:47 Dextrose (Dextrose 50%) 25 ml Q30M PRN IV Hypoglycemia 04/01/19 08:15 05/01/19 08:14 Dextrose (Dextrose 50%) 50 ml Q30M PRN IV Hypoglycemia 04/01/19 08:15 05/01/19 08:14 Fluphenazine HCl (Prolixin) 5 mg BID ORAL 04/01/19 09:00 05/01/19 08:59 04/02/19 09:47 Fluphenazine HCl (Prolixin) 10 mg BEDTIME ORAL 04/01/19 21:00 05/01/19 20:59 Gabapentin (Neurontin) 300 mg BID ORAL 04/01/19 09:00 05/01/19 08:59 04/02/19 09:48 Guaifenesin/ Dextromethorphan (Robitussin DM Syrup) 10 ml Q8H PRN ORAL cough 03/31/19 21:45 04/30/19 21:44 Hydralazine HCl (Apresoline) 25 mg Q4HR PRN ORAL bp over 160 syst 03/31/19 21:30 04/30/19 21:29 04/02/19 02:23 Hydralazine HCl (Apresoline) 100 mg Q8HR ORAL 04/01/19 14:00 05/01/19 08:59 04/02/19 06:32 Insulin Aspart (NovoLOG) BEFORE MEALS AND HS SUBQ 04/01/19 11:30 05/01/19 11:29 Labetalol HCl (Normodyne) 200 mg TID ORAL 04/01/19 13:00 05/01/19 08:59 04/02/19 09:47 Lisinopril (ZestriL) 10 mg DAILY ORAL 04/02/19 09:00 05/02/19 08:59 04/02/19 09:48 Metformin HCl (Glucophage) 500 mg TIAC ORAL 04/01/19 16:30 05/01/19 16:29 04/02/19 06:31 Sitagliptin Phosphate (Januvia) 100 mg DAILY ORAL 04/01/19 09:00 05/01/19 08:59 04/02/19 09:47 Sodium Chloride 1,000 ml @ 50 mls/hr Q20H IV 03/31/19 21:30 04/30/19 21:29 04/01/19 18:34 Trihexyphenidyl HCl (Artane) 2 mg TID ORAL 04/01/19 12:00 05/01/19 11:59 04/02/19 09:48 Laboratory Tests 04/02/19 05:35: White Blood Count 8.4, Red Blood Count 4.46, Hemoglobin 13.2, Hematocrit 38.6, Mean Corpuscular Volume 86, Mean Corpuscular Hemoglobin 29.5, Mean Corpuscular Hemoglobin Concent 34.1, Red Cell Distribution Width 12.3, Platelet Count 293, Mean Platelet Volume 5.7L, Neutrophils (%) (Auto) 58.3, Lymphocytes (%) (Auto) 29.7, Monocytes (%) (Auto) 8.9, Eosinophils (%) (Auto) 1.7, Basophils (%) (Auto ) 1.5, Sodium Level 136, Potassium Level 4.2, Chloride Level 103, Carbon Dioxide Level 24, Anion Gap 9, Blood Urea Nitrogen 6L, Creatinine 0.6, Estimat Glomerular Filtration Rate > 60, Glucose Level 124H, Uric Acid 4.4, Calcium Level 9.0, Phosphorus Level 5.6H, Magnesium Level 2.0, Total Bilirubin 0.2, Aspartate Amino Transf (AST/SGOT) 19, Alanine Aminotransferase (ALT/SGPT) 26, Alkaline Phosphatase 65, Total Protein 7.1, Albumin 3.5, Globulin 3.6, Albumin/ Globulin Ratio 1.0 Height (Feet): 5 Height (Inches): 3.00 Weight (Pounds): 219 General Appearance: no apparent distress Respiratory/Chest: decreased breath sounds Abdomen: other - obese Nikita Herrera MD Apr 02, 2019 11:00
--- NOTE | 2019-04-02 16:51 | General Progress Note ---
Assessment/Plan Problem List: (1) Ulcerative colitis ICD Codes: K51.90 - Ulcerative colitis, unspecified, without complications SNOMED: 35712654 (2) Thyroid disease ICD Codes: E07.9 - Disorder of thyroid, unspecified SNOMED: 97930422 (3) History of colon polyps ICD Codes: Z86.010 - Personal history of colonic polyps SNOMED: 822671887 (4) Hyponatremia ICD Codes: E87.1 - Hypo-osmolality and hyponatremia SNOMED: 96816213 (5) DMII (diabetes mellitus, type 2) ICD Codes: E11.9 - Type 2 diabetes mellitus without complications SNOMED: 27923326 (6) HTN (hypertension) ICD Codes: I10 - Essential (primary) hypertension SNOMED: 96324925 Status: progressing Assessment/Plan: afebrile dm hyponatremia improved sugar is under control bronchitis improved Subjective ROS Limited/Unobtainable: Yes Allergies: Coded Allergies: METRONIDAZOLE (Unverified Allergy, Severe, 04/14/17) vomiting, rash SULFA (SULFONAMIDE ANTIBIOTICS) (Unverified Allergy, Severe, 07/24/17) RASH ALL OVER THE BODY, SWELLING SULFAMETHOXAZOLE (Unverified Allergy, Unknown, 11/25/17) TRIMETHOPRIM (Unverified Allergy, Unknown, 11/25/17) Objective Last 24 Hour Vital Signs Date Time Temp Pulse Resp B/P (MAP) Pulse Ox O2 Delivery O2 Flow Rate FiO2 04/02/19 13:44 71 151/65 04/02/19 13:44 151/65 04/02/19 12:00 98.3 71 18 151/65 (93) 100 04/02/19 09:48 137/67 04/02/19 09:47 91 137/67 04/02/19 09:00 Room Air 04/02/19 08:26 76 18 96 Room Air 21 04/02/19 08:00 97.9 91 20 137/67 (90) 98 04/02/19 06:32 167/85 04/02/19 04:00 99.5 80 24 186/97 (126) 99 04/02/19 02:23 165/68 04/02/19 00:00 98.0 80 16 165/68 (100) 93 04/01/19 23:48 167/80 04/01/19 21:00 Room Air 04/01/19 21:00 Room Air 04/01/19 20:00 97.8 74 18 167/80 (109) 93 04/01/19 19:42 68 18 93 Room Air 21 04/01/19 18:35 76 151/90 04/01/19 18:30 98.2 76 24 151/90 (110) 95 Intake and Output 04/01/19 04/02/19 19:00 07:00 Intake Total 250 ml 700 ml Balance 250 ml 700 ml Intake Oral 250 ml 700 ml # Voids 5 # Bowel Movements 1 Laboratory Tests 04/02/19 05:35: White Blood Count 8.4, Red Blood Count 4.46, Hemoglobin 13.2, Hematocrit 38.6, Mean Corpuscular Volume 86, Mean Corpuscular Hemoglobin 29.5, Mean Corpuscular Hemoglobin Concent 34.1, Red Cell Distribution Width 12.3, Platelet Count 293, Mean Platelet Volume 5.7L, Neutrophils (%) (Auto) 58.3, Lymphocytes (%) (Auto) 29.7, Monocytes (%) (Auto) 8.9, Eosinophils (%) (Auto) 1.7, Basophils (%) (Auto ) 1.5, Sodium Level 136, Potassium Level 4.2, Chloride Level 103, Carbon Dioxide Level 24, Anion Gap 9, Blood Urea Nitrogen 6L, Creatinine 0.6, Estimat Glomerular Filtration Rate > 60, Glucose Level 124H, Uric Acid 4.4, Calcium Level 9.0, Phosphorus Level 5.6H, Magnesium Level 2.0, Total Bilirubin 0.2, Aspartate Amino Transf (AST/SGOT) 19, Alanine Aminotransferase (ALT/SGPT) 26, Alkaline Phosphatase 65, Total Protein 7.1, Albumin 3.5, Globulin 3.6, Albumin/ Globulin Ratio 1.0 Height (Feet): 5 Height (Inches): 3.00 Weight (Pounds): 219 Neck: supple Cardiovascular: normal rate Respiratory/Chest: lungs clear Abdomen: soft Jay Vasquez MD Apr 02, 2019 16:51
--- NOTE | 2019-04-02 19:20 | NUR ---
HAND-OFF: Report given to JILL Fish. Rounds done. Patient stable.
--- NOTE | 2019-04-02 19:29 | NUR ---
NURSE NOTES Received report from JILL Pineda. Patient in bed, awake, alert and oriented x2. Breathing even and unlabored unlabored, no acute distress noted. Fall precaution is in place. Bed in low and locked position. bed alarm is on. call light within reach. will continue to monitor the pt.
[2019-04-03 04:00] VITALS: BP 152/88
[2019-04-03] MEDS: HydrALAZINE 50mg tab ORAL SCH ×3 (05:50→21:03)
[2019-04-03] MEDS: metFORMIN 500mg tab ORAL SCH ×3 (05:50→17:19)
[2019-04-03] MEDS: HYDROcodone/Acetamin 5/325 tab ORAL PRN ×3 (05:56→21:03)
[2019-04-03] MEDS: NovoLOG Insulin Flexpen SUBQ SCH ×4 (06:30→21:00)
--- NOTE | 2019-04-03 07:21 | NUR ---
HAND-OFF: Report given to JILL Pineda.
--- NOTE | 2019-04-03 07:37 | NUR ---
NURSE NOTES: Received report from JILL Fish. Patient A&Ox2. Sitting up in bed, eating breakfast. On room air, no signs of distress or labored breathing. IV intact, patent, and infusing IV fluids, normal saline. Bed in lowest position with call light in reach. Will continue with plan of care.
[2019-04-03 08:00] VITALS: BP 155/84
--- NOTE | 2019-04-03 08:05 | General Progress Note ---
Assessment/Plan Status: progressing Assessment/Plan: COPD, ?bronchitis. diabetes mellitus, obesity, hypertension, history of psychiatric problem, depression, vague history of ulcerative colitis. asymptomatic GI stand point needs out patient fu with GI will fu abx per ID Subjective ROS Limited/Unobtainable: Yes Allergies: Coded Allergies: METRONIDAZOLE (Unverified Allergy, Severe, 04/14/17) vomiting, rash SULFA (SULFONAMIDE ANTIBIOTICS) (Unverified Allergy, Severe, 07/24/17) RASH ALL OVER THE BODY, SWELLING SULFAMETHOXAZOLE (Unverified Allergy, Unknown, 11/25/17) TRIMETHOPRIM (Unverified Allergy, Unknown, 11/25/17) Objective Last 24 Hour Vital Signs Date Time Temp Pulse Resp B/P (MAP) Pulse Ox O2 Delivery O2 Flow Rate FiO2 04/03/19 05:50 158/73 04/03/19 04:00 98.0 96 18 152/88 (109) 85 04/02/19 23:31 97.4 95 18 147/82 (103) 85 04/02/19 21:13 165/86 04/02/19 21:00 Room Air 04/02/19 20:22 94 18 95 Room Air 21 04/02/19 20:00 97.6 96 18 168/85 (112) 96 04/02/19 17:35 96 154/68 04/02/19 16:00 98.4 96 20 154/68 (96) 95 04/02/19 13:44 71 151/65 04/02/19 13:44 151/65 04/02/19 12:00 98.3 71 18 151/65 (93) 100 04/02/19 09:48 137/67 04/02/19 09:47 91 137/67 04/02/19 09:00 Room Air 04/02/19 08:26 76 18 96 Room Air 21 Intake and Output 04/02/19 04/03/19 19:00 07:00 Intake Total 800 ml 1700 ml Balance 800 ml 1700 ml Intake Oral 800 ml 1200 ml IV Total 500 ml # Voids 3 4 # Bowel Movements 1 Height (Feet): 5 Height (Inches): 3.00 Weight (Pounds): 219 General Appearance: alert EENT: normal ENT inspection Neck: supple Cardiovascular: normal peripheral pulses Respiratory/Chest: decreased breath sounds Abdomen: normal bowel sounds, non tender, soft Extremities: non-tender Miguel Booth MD Apr 03, 2019 08:05
[2019-04-03] MEDS: Trihexyphenidyl 2mg tab ORAL SCH ×3 (08:44→17:18)
[2019-04-03] MEDS: clonazePAM 0.5mg tab ORAL SCH ×3 (08:44→17:18)
[2019-04-03] MEDS: Lisinopril 10mg tab ORAL SCH ×2 (08:45→17:18)
[2019-04-03] MEDS: Labetalol 200mg tab ORAL SCH ×3 (08:45→17:18)
[2019-04-03 12:00] VITALS: BP 166/91
--- NOTE | 2019-04-03 12:00 | Nephrology Progress Note ---
Assessment/Plan Problem List: (1) Hyponatremia (2) Sleep apnea (3) DMII (diabetes mellitus, type 2) (4) HTN (hypertension) Assessment Encephalopathy ? Metabolic Mild Low Na Obese DM HTN Psych history Plan change diet to diabetic per psych adjust BP meds per orders Subjective ROS Limited/Unobtainable: No Constitutional: Reports: malaise Objective Objective Last 24 Hour Vital Signs Date Time Temp Pulse Resp B/P (MAP) Pulse Ox O2 Delivery O2 Flow Rate FiO2 04/03/19 09:10 70 20 97 Room Air 21 04/03/19 09:00 Room Air 04/03/19 08:45 155/84 04/03/19 08:45 76 155/84 04/03/19 08:00 98.0 76 19 155/84 (107) 85 04/03/19 05:50 158/73 04/03/19 04:00 98.0 96 18 152/88 (109) 85 04/02/19 23:31 97.4 95 18 147/82 (103) 85 04/02/19 21:13 165/86 04/02/19 21:00 Room Air 04/02/19 20:22 94 18 95 Room Air 21 04/02/19 20:00 97.6 96 18 168/85 (112) 96 04/02/19 17:35 96 154/68 04/02/19 16:00 98.4 96 20 154/68 (96) 95 04/02/19 13:44 71 151/65 04/02/19 13:44 151/65 04/02/19 12:00 98.3 71 18 151/65 (93) 100 Intake and Output 04/02/19 04/03/19 19:00 07:00 Intake Total 850 ml 1750 ml Balance 850 ml 1750 ml Intake Oral 800 ml 1200 ml IV Total 50 ml 550 ml # Voids 3 4 # Bowel Movements 1 Height (Feet): 5 Height (Inches): 3.00 Weight (Pounds): 219 General Appearance: no apparent distress Respiratory/Chest: decreased breath sounds Abdomen: soft, other - obese Nikita Herrera MD Apr 03, 2019 12:00
--- NOTE | 2019-04-03 13:19 | General Progress Note ---
Assessment/Plan Problem List: (1) Ulcerative colitis ICD Codes: K51.90 - Ulcerative colitis, unspecified, without complications SNOMED: 54853709 (2) Thyroid disease ICD Codes: E07.9 - Disorder of thyroid, unspecified SNOMED: 33026564 (3) History of colon polyps ICD Codes: Z86.010 - Personal history of colonic polyps SNOMED: 415028826 (4) Hyponatremia ICD Codes: E87.1 - Hypo-osmolality and hyponatremia SNOMED: 74141634 (5) DMII (diabetes mellitus, type 2) ICD Codes: E11.9 - Type 2 diabetes mellitus without complications SNOMED: 00290197 (6) HTN (hypertension) ICD Codes: I10 - Essential (primary) hypertension SNOMED: 88860456 Status: progressing Assessment/Plan: nausea.ordered zofran dc planning dm hyponatremia improved sugar is under control less cough unable to determine source of bleeding Subjective ROS Limited/Unobtainable: Yes Allergies: Coded Allergies: METRONIDAZOLE (Unverified Allergy, Severe, 04/14/17) vomiting, rash SULFA (SULFONAMIDE ANTIBIOTICS) (Unverified Allergy, Severe, 07/24/17) RASH ALL OVER THE BODY, SWELLING SULFAMETHOXAZOLE (Unverified Allergy, Unknown, 11/25/17) TRIMETHOPRIM (Unverified Allergy, Unknown, 11/25/17) Objective Last 24 Hour Vital Signs Date Time Temp Pulse Resp B/P (MAP) Pulse Ox O2 Delivery O2 Flow Rate FiO2 04/03/19 12:19 68 166/91 04/03/19 12:00 98.4 68 20 166/91 (116) 98 04/03/19 09:10 70 20 97 Room Air 21 04/03/19 09:00 Room Air 04/03/19 08:45 155/84 04/03/19 08:45 76 155/84 04/03/19 08:00 98.0 76 19 155/84 (107) 97 04/03/19 05:50 158/73 04/03/19 04:00 98.0 96 18 152/88 (109) 85 04/02/19 23:31 97.4 95 18 147/82 (103) 85 04/02/19 21:13 165/86 04/02/19 21:00 Room Air 04/02/19 20:22 94 18 95 Room Air 21 04/02/19 20:00 97.6 96 18 168/85 (112) 96 04/02/19 17:35 96 154/68 04/02/19 16:00 98.4 96 20 154/68 (96) 95 04/02/19 13:44 71 151/65 04/02/19 13:44 151/65 Intake and Output 04/02/19 04/03/19 19:00 07:00 Intake Total 850 ml 1750 ml Balance 850 ml 1750 ml Intake Oral 800 ml 1200 ml IV Total 50 ml 550 ml # Voids 3 4 # Bowel Movements 1 Height (Feet): 5 Height (Inches): 3.00 Weight (Pounds): 219 Neck: supple Cardiovascular: normal rate Respiratory/Chest: lungs clear Jay Vasquez MD Apr 03, 2019 13:19
--- NOTE | 2019-04-03 14:03 | Infectious Diseases Prog Note ---
Assessment/Plan Assessment/Plan IMPRESSION: Dysuria & hematuria COPD, bronchitis. diabetes mellitus, obesity, hypertension, history of psychiatric problem, depression, vague history of ulcerative colitis. RECOMMENDATIONS: UA & urine culture Start on Rocephin Subjective ROS Limited/Unobtainable: No Constitutional: Reports: no symptoms Respiratory: Reports: no symptoms Gastrointestinal/Abdominal: Reports: no symptoms Genitourinary: Reports: dysuria, hematuria Allergies: Coded Allergies: METRONIDAZOLE (Unverified Allergy, Severe, 04/14/17) vomiting, rash SULFA (SULFONAMIDE ANTIBIOTICS) (Unverified Allergy, Severe, 07/24/17) RASH ALL OVER THE BODY, SWELLING SULFAMETHOXAZOLE (Unverified Allergy, Unknown, 11/25/17) TRIMETHOPRIM (Unverified Allergy, Unknown, 11/25/17) Objective Vital Signs Last 24 Hour Vital Signs Date Time Temp Pulse Resp B/P (MAP) Pulse Ox O2 Delivery O2 Flow Rate FiO2 04/03/19 12:19 68 166/91 04/03/19 12:00 98.4 68 20 166/91 (116) 98 04/03/19 09:10 70 20 97 Room Air 21 04/03/19 09:00 Room Air 04/03/19 08:45 155/84 04/03/19 08:45 76 155/84 04/03/19 08:00 98.0 76 19 155/84 (107) 97 04/03/19 05:50 158/73 04/03/19 04:00 98.0 96 18 152/88 (109) 85 04/02/19 23:31 97.4 95 18 147/82 (103) 85 04/02/19 21:13 165/86 04/02/19 21:00 Room Air 04/02/19 20:22 94 18 95 Room Air 21 04/02/19 20:00 97.6 96 18 168/85 (112) 96 04/02/19 17:35 96 154/68 04/02/19 16:00 98.4 96 20 154/68 (96) 95 Height (Feet): 5 Height (Inches): 3.00 Weight (Pounds): 219 General Appearance: no acute distress HEENT: mucous membranes moist Respiratory/Chest: lungs clear Cardiovascular: normal rate Abdomen: soft, non tender Extremities: no edema Neurologic/Psychiatric: alert, responsive Microbiology Date/Time Source Procedure Growth Status 2/6/20 18:00 Nasal Nares MRSA Culture - Final NO METHICILLIN RESISTANT STAPH AUREUS... Complete 03/31/19 18:00 Rectum - Final NO CARBAPENEM-RESISTANT ENTEROBACTERI... Complete 03/31/19 18:00 Rectum VRE Culture - Final NO VANCOMYCIN RESISTANT ENTEROCOCCUS ... Complete Current Medications Medications (Trade) Dose Ordered Sig/Bogdan Route PRN Reason Start Time Stop Time Status Last Admin Dose Admin Acetaminophen/ Hydrocodone Bitart ([place] 5/325) 1 tab Q6H PRN ORAL For Pain 03/31/19 21:45 04/07/19 21:44 04/03/19 05:56 Albuterol Sulfate (Proventil MDI) 1 puff Q6H PRN INH Shortness of Breath 04/01/19 06:30 05/01/19 00:00 Atorvastatin Calcium (Lipitor) 5 mg BEDTIME ORAL 04/01/19 21:00 05/01/19 20:59 04/02/19 20:49 Clonazepam (KlonoPIN) 0.5 mg TID ORAL 04/01/19 09:00 04/08/19 08:59 04/03/19 12:19 Dextrose (Dextrose 50%) 25 ml Q30M PRN IV Hypoglycemia 04/01/19 08:15 05/01/19 08:14 Dextrose (Dextrose 50%) 50 ml Q30M PRN IV Hypoglycemia 04/01/19 08:15 05/01/19 08:14 Fluphenazine HCl (Prolixin) 5 mg BID ORAL 04/01/19 09:00 05/01/19 08:59 04/03/19 08:45 Fluphenazine HCl (Prolixin) 10 mg BEDTIME ORAL 04/01/19 21:00 05/01/19 20:59 04/02/19 20:48 Gabapentin (Neurontin) 300 mg BID ORAL 04/01/19 09:00 05/01/19 08:59 04/03/19 08:45 Guaifenesin/ Dextromethorphan (Robitussin DM Syrup) 10 ml Q8H PRN ORAL cough 03/31/19 21:45 04/30/19 21:44 Heparin Sodium (Porcine) (Heparin 5000 units/ml) 5,000 units EVERY 12 HOURS SUBQ 04/03/19 21:00 05/03/19 20:59 Hydralazine HCl (Apresoline) 25 mg Q4HR PRN ORAL bp over 160 syst 03/31/19 21:30 04/30/19 21:29 04/02/19 02:23 Hydralazine HCl (Apresoline) 100 mg Q8HR ORAL 04/01/19 14:00 05/01/19 08:59 04/03/19 05:50 Insulin Aspart (NovoLOG) BEFORE MEALS AND HS SUBQ 04/01/19 11:30 05/01/19 11:29 04/02/19 20:47 Labetalol HCl (Normodyne) 200 mg TID ORAL 04/01/19 13:00 05/01/19 08:59 04/03/19 12:19 Lisinopril (ZestriL) 10 mg BID ORAL 04/03/19 18:00 05/02/19 08:59 Metformin HCl (Glucophage) 500 mg TIAC ORAL 04/01/19 16:30 05/01/19 16:29 04/03/19 11:58 Ondansetron HCl (Zofran) 4 mg Q6H PRN IVP Nausea & Vomiting 04/03/19 08:45 05/03/19 08:44 04/03/19 09:39 Sitagliptin Phosphate (Januvia) 100 mg DAILY ORAL 04/01/19 09:00 05/01/19 08:59 04/03/19 08:44 Sodium Chloride 1,000 ml @ 50 mls/hr Q20H IV 03/31/19 21:30 04/30/19 21:29 04/02/19 17:45 Trihexyphenidyl HCl (Artane) 2 mg TID ORAL 04/01/19 12:00 05/01/19 11:59 04/03/19 12:19 Pavel Britt MD Apr 03, 2019 14:03
[2019-04-03] MEDS ORDERED: cefTRIAXone 1 GM in D5W 55 ML IVPB SCH (15:00)
[2019-04-03 16:00] VITALS: BP 170/86
--- NOTE | 2019-04-03 18:03 | Hematology/Onc Progress Note ---
Assessment/Plan Assessment/Plan # Hemoptysis v Nonproductive cough with hemoptysis per patient --> now appears to have resolved --> hx of copd in the past, remote related --> as per pulm, does not appear exacerbation or malignancy related--> imaging has been noted # Dysuria & hematuria --> as per ID --> ua and culture and is currently off abx # Diabetes mellitus, --> a1c goal <9 --> accuchecks aqc and qhs --> on iss # Obesity, --> rec weight loss --> per gi, lifestyle modification # Hypertension, --> per cards # History of psychiatric problem, --> as per psych eval # Depression, --> meds reviewed # Vague history of ulcerative colitis. --> gi eval as needed # Encephalopathy ? Metabolic --> renal aware # Mild Low Na # Psych history Appreciate consultation and dw Rn Subjective HEENT: Denies: no symptoms, eye pain, blurred vision, tearing, double vision, ear pain, ear discharge, nose pain, nose congestion, throat pain, throat swelling, mouth pain, mouth swelling, other Cardiovascular: Denies: no symptoms, chest pain, edema, irregular heart rate, lightheadedness, palpitations, syncope, other Gastrointestinal/Abdominal: Denies: no symptoms, abdomen distended, abdominal pain, black stools, tarry stools, blood in stool, constipated, diarrhea, difficulty swallowing, nausea, poor appetite, poor fluid intake, rectal bleeding , vomiting, other Genitourinary: Denies: no symptoms, burning, discharge, frequency, flank pain, hematuria, incontinence, pain, urgency, other Neurologic/Psychiatric: Denies: no symptoms, anxiety, depressed, emotional problems, headache, numbness, paresthesia, pre-existing deficit, seizure, tingling, tremors, weakness, other Endocrine: Denies: no symptoms, excessive sweating, flushing, intolerance to cold, intolerance to heat, increased hunger, increased thirst, increased urine, unexplained weight gain, unexplained weight loss, other Hematologic/Lymphatic: Denies: no symptoms, anemia, easy bleeding, easy bruising, adenopathy, other Allergies: Coded Allergies: METRONIDAZOLE (Unverified Allergy, Severe, 04/14/17) vomiting, rash SULFA (SULFONAMIDE ANTIBIOTICS) (Unverified Allergy, Severe, 07/24/17) RASH ALL OVER THE BODY, SWELLING SULFAMETHOXAZOLE (Unverified Allergy, Unknown, 11/25/17) TRIMETHOPRIM (Unverified Allergy, Unknown, 11/25/17) Subjective 04/03: no bleeding, no night sweats, meds noted, no bleeding, no f/c Objective Objective Current Medications Medications (Trade) Dose Ordered Sig/Bogdan Route PRN Reason Start Time Stop Time Status Last Admin Dose Admin Acetaminophen/ Hydrocodone Bitart (Mode 5/325) 1 tab Q6H PRN ORAL For Pain 03/31/19 21:45 04/07/19 21:44 04/03/19 14:30 Albuterol Sulfate (Proventil MDI) 1 puff Q6H PRN INH Shortness of Breath 04/01/19 06:30 05/01/19 00:00 Atorvastatin Calcium (Lipitor) 5 mg BEDTIME ORAL 04/01/19 21:00 05/01/19 20:59 04/02/19 20:49 Ceftriaxone Sodium 1 gm/ Dextrose 55 ml @ 110 mls/hr Q24H IVPB 04/03/19 15:00 04/10/19 14:59 04/03/19 15:00 Clonazepam (KlonoPIN) 0.5 mg TID ORAL 04/01/19 09:00 04/08/19 08:59 04/03/19 17:18 Dextrose (Dextrose 50%) 25 ml Q30M PRN IV Hypoglycemia 04/01/19 08:15 05/01/19 08:14 Dextrose (Dextrose 50%) 50 ml Q30M PRN IV Hypoglycemia 04/01/19 08:15 05/01/19 08:14 Fluphenazine HCl (Prolixin) 5 mg BID ORAL 04/01/19 09:00 05/01/19 08:59 04/03/19 17:18 Fluphenazine HCl (Prolixin) 10 mg BEDTIME ORAL 04/01/19 21:00 05/01/19 20:59 04/02/19 20:48 Gabapentin (Neurontin) 300 mg BID ORAL 04/01/19 09:00 05/01/19 08:59 04/03/19 17:19 Guaifenesin/ Dextromethorphan (Robitussin DM Syrup) 10 ml Q8H PRN ORAL cough 03/31/19 21:45 04/30/19 21:44 Heparin Sodium (Porcine) (Heparin 5000 units/ml) 5,000 units EVERY 12 HOURS SUBQ 04/03/19 21:00 05/03/19 20:59 Hydralazine HCl (Apresoline) 25 mg Q4HR PRN ORAL bp over 160 syst 03/31/19 21:30 04/30/19 21:29 04/02/19 02:23 Hydralazine HCl (Apresoline) 100 mg Q8HR ORAL 04/01/19 14:00 05/01/19 08:59 04/03/19 14:29 Insulin Aspart (NovoLOG) BEFORE MEALS AND HS SUBQ 04/01/19 11:30 05/01/19 11:29 04/02/19 20:47 Labetalol HCl (Normodyne) 200 mg TID ORAL 04/01/19 13:00 05/01/19 08:59 04/03/19 17:18 Lisinopril (ZestriL) 10 mg BID ORAL 04/03/19 18:00 05/02/19 08:59 04/03/19 17:18 Metformin HCl (Glucophage) 500 mg TIAC ORAL 04/01/19 16:30 05/01/19 16:29 04/03/19 17:19 Ondansetron HCl (Zofran) 4 mg Q6H PRN IVP Nausea & Vomiting 04/03/19 08:45 05/03/19 08:44 04/03/19 09:39 Sitagliptin Phosphate (Januvia) 100 mg DAILY ORAL 04/01/19 09:00 05/01/19 08:59 04/03/19 08:44 Sodium Chloride 1,000 ml @ 50 mls/hr Q20H IV 03/31/19 21:30 04/30/19 21:29 04/03/19 14:30 Trihexyphenidyl HCl (Artane) 2 mg TID ORAL 04/01/19 12:00 05/01/19 11:59 04/03/19 17:18 Last 24 Hour Vital Signs Date Time Temp Pulse Resp B/P (MAP) Pulse Ox O2 Delivery O2 Flow Rate FiO2 04/03/19 17:18 170/86 04/03/19 17:18 61 170/86 04/03/19 16:00 97.8 61 21 170/86 (114) 96 04/03/19 14:29 166/91 04/03/19 12:19 68 166/91 04/03/19 12:00 98.4 68 20 166/91 (116) 98 04/03/19 09:10 70 20 97 Room Air 21 04/03/19 09:00 Room Air 04/03/19 08:45 155/84 04/03/19 08:45 76 155/84 04/03/19 08:00 98.0 76 19 155/84 (107) 97 04/03/19 05:50 158/73 04/03/19 04:00 98.0 96 18 152/88 (109) 85 04/02/19 23:31 97.4 95 18 147/82 (103) 85 04/02/19 21:13 165/86 04/02/19 21:00 Room Air 04/02/19 20:22 94 18 95 Room Air 21 04/02/19 20:00 97.6 96 18 168/85 (112) 96 04/02/19 17:35 96 154/68 04/02/19 16:00 98.4 96 20 154/68 (96) 95 04/02/19 13:44 71 151/65 04/02/19 13:44 151/65 04/02/19 12:00 98.3 71 18 151/65 (93) 100 04/02/19 09:48 137/67 04/02/19 09:47 91 137/67 04/02/19 09:00 Room Air 04/02/19 08:26 76 18 96 Room Air 21 04/02/19 08:00 97.9 91 20 137/67 (90) 98 04/02/19 06:32 167/85 04/02/19 04:00 99.5 80 24 186/97 (126) 99 04/02/19 02:23 165/68 04/02/19 00:00 98.0 80 16 165/68 (100) 93 04/01/19 23:48 167/80 04/01/19 21:00 Room Air 04/01/19 21:00 Room Air 04/01/19 20:00 97.8 74 18 167/80 (109) 93 04/01/19 19:42 68 18 93 Room Air 21 04/01/19 18:35 76 151/90 04/01/19 18:30 98.2 76 24 151/90 (110) 95 Intake and Output 04/02/19 04/03/19 19:00 07:00 Intake Total 850 ml 1750 ml Balance 850 ml 1750 ml Intake Oral 800 ml 1200 ml IV Total 50 ml 550 ml # Voids 3 4 # Bowel Movements 1 Labs Test 04/01/19 05:50 04/02/19 05:35 White Blood Count 8.8 K/UL (4.8-10.8) 8.4 K/UL (4.8-10.8) Red Blood Count 4.45 M/UL (4.20-5.40) 4.46 M/UL (4.20-5.40) Hemoglobin 13.1 G/DL (12.0-16.0) 13.2 G/DL (12.0-16.0) Hematocrit 38.3 % (37.0-47.0) 38.6 % (37.0-47.0) Mean Corpuscular Volume 86 FL (80-99) 86 FL (80-99) Mean Corpuscular Hemoglobin 29.5 PG (27.0-31.0) 29.5 PG (27.0-31.0) Mean Corpuscular Hemoglobin Concent 34.2 G/DL (32.0-36.0) 34.1 G/DL (32.0-36.0) Red Cell Distribution Width 12.2 % (11.6-14.8) 12.3 % (11.6-14.8) Platelet Count 316 K/UL (150-450) 293 K/UL (150-450) Mean Platelet Volume 5.7 FL (6.5-10.1) 5.7 FL (6.5-10.1) Neutrophils (%) (Auto) 58.6 % (45.0-75.0) 58.3 % (45.0-75.0) Lymphocytes (%) (Auto) 27.7 % (20.0-45.0) 29.7 % (20.0-45.0) Monocytes (%) (Auto) 10.1 % (1.0-10.0) 8.9 % (1.0-10.0) Eosinophils (%) (Auto) 2.5 % (0.0-3.0) 1.7 % (0.0-3.0) Basophils (%) (Auto) 1.1 % (0.0-2.0) 1.5 % (0.0-2.0) Sodium Level 133 MMOL/L (136-145) 136 MMOL/L (136-145) Potassium Level 4.1 MMOL/L (3.5-5.1) 4.2 MMOL/L (3.5-5.1) Chloride Level 97 MMOL/L (98-107) 103 MMOL/L (98-107) Carbon Dioxide Level 26 MMOL/L (21-32) 24 MMOL/L (21-32) Anion Gap 10 mmol/L (5-15) 9 mmol/L (5-15) Blood Urea Nitrogen 6 mg/dL (7-18) 6 mg/dL (7-18) Creatinine 0.6 MG/DL (0.55-1.30) 0.6 MG/DL (0.55-1.30) Estimat Glomerular Filtration Rate > 60 mL/min (>60) > 60 mL/min (>60) Glucose Level 129 MG/DL (74-106) 124 MG/DL (74-106) Hemoglobin A1c 7.0 % (4.3-6.0) Osmolality 279 mOsm/kg (297-317) Uric Acid 3.8 MG/DL (2.6-7.2) 4.4 MG/DL (2.6-7.2) Calcium Level 8.9 MG/DL (8.5-10.1) 9.0 MG/DL (8.5-10.1) Phosphorus Level 4.5 MG/DL (2.5-4.9) 5.6 MG/DL (2.5-4.9) Magnesium Level 1.8 MG/DL (1.8-2.4) 2.0 MG/DL (1.8-2.4) Total Bilirubin 0.3 MG/DL (0.2-1.0) 0.2 MG/DL (0.2-1.0) Aspartate Amino Transf (AST/SGOT) 22 U/L (15-37) 19 U/L (15-37) Alanine Aminotransferase (ALT/SGPT) 30 U/L (12-78) 26 U/L (12-78) Alkaline Phosphatase 71 U/L (46-116) 65 U/L (46-116) Total Protein 7.2 G/DL (6.4-8.2) 7.1 G/DL (6.4-8.2) Albumin 3.6 G/DL (3.4-5.0) 3.5 G/DL (3.4-5.0) Globulin 3.6 g/dL 3.6 g/dL Albumin/Globulin Ratio 1.0 (1.0-2.7) 1.0 (1.0-2.7) Triglycerides Level 64 MG/DL (30-150) Cholesterol Level 112 MG/DL (< 200) LDL Cholesterol 35 mg/dL (<100) HDL Cholesterol 65 MG/DL (40-60) Cholesterol/HDL Ratio 1.7 (3.3-4.4) Thyroid Stimulating Hormone (TSH) 2.702 uiU/mL (0.358-3.740) Height (Feet): 5 Height (Inches): 3.00 Weight (Pounds): 219 Objective Vitals: reviewed, stable General Appearance: NAD HEENT: normocephalic, atraumatic Neck: non-tender, normal alignment Respiratory/Chest: normal breath sounds bilaterally Cardiovascular/Chest: normal peripheral pulses, normal rate Abdomen: normal bowel sounds, soft, nontender Extremities: normal range of motion Salty Kendall MD Apr 03, 2019 18:03
--- NOTE | 2019-04-03 19:16 | NUR ---
HAND-OFF: Report given to JILL Fish. Rounds done. Patient in stable condition.
--- NOTE | 2019-04-03 19:30 | NUR ---
NURSE NOTES Received report from JILL Pineda. Patient is awake, alert and oriented x2. Respiration even and unlabored, no acute distress noted. Fall precaution is in place. Bed in low and locked position. bed alarm is on. call light within reach. will continue to monitor the pt.
[2019-04-03 20:16] VITALS: BP 142/89
[2019-04-03] MEDS: Heparin 5000 units/ml inj SUBQ SCH (21:01)
[2019-04-03 23:54] VITALS: BP 138/82
[2019-04-04 04:00] VITALS: BP 150/67
[2019-04-04] MEDS: metFORMIN 500mg tab ORAL SCH ×2 (05:27→12:15)
[2019-04-04] MEDS: HYDROcodone/Acetamin 5/325 tab ORAL PRN (05:28)
[2019-04-04] MEDS: HydrALAZINE 50mg tab ORAL SCH (05:28)
[2019-04-04] MEDS: NovoLOG Insulin Flexpen SUBQ SCH ×2 (06:30→11:30)
--- NOTE | 2019-04-04 07:07 | NUR ---
NURSE NOTES Received patient in bed, asleep but easily arousable,no sign of distress.no sign of distress noted. on Fall precaution is in place. Bed in low and locked position. bed alarm is on. call light within reach. will continue to monitor patient condition becki nelson
--- NOTE | 2019-04-04 07:07 | NUR ---
HAND-OFF: Report given to JILL Mejia. Endorsed about fall risk status to oncoming nurse.
[2019-04-04 08:00] VITALS: BP 139/86
[2019-04-04] MEDS: Trihexyphenidyl 2mg tab ORAL SCH ×2 (08:40→12:15)
[2019-04-04] MEDS: Lisinopril 10mg tab ORAL SCH (08:40)
[2019-04-04] MEDS: clonazePAM 0.5mg tab ORAL SCH ×2 (08:40→12:15)
[2019-04-04] MEDS: Heparin 5000 units/ml inj SUBQ SCH (08:41)
[2019-04-04] MEDS: Labetalol 200mg tab ORAL SCH ×2 (08:41→12:15)
--- NOTE | 2019-04-04 08:54 | Nephrology Progress Note ---
Assessment/Plan Problem List: (1) Hyponatremia (2) Sleep apnea (3) DMII (diabetes mellitus, type 2) (4) HTN (hypertension) Assessment Encephalopathy ? Metabolic Mild Low Na Obese DM HTN Psych history Plan no labs today change diet to diabetic per psych adjust BP meds per orders Subjective ROS Limited/Unobtainable: No Constitutional: Reports: malaise, weakness Objective Objective Last 24 Hour Vital Signs Date Time Temp Pulse Resp B/P (MAP) Pulse Ox O2 Delivery O2 Flow Rate FiO2 04/04/19 08:41 68 152/64 04/04/19 08:40 152/64 04/04/19 05:28 152/64 04/04/19 04:00 98.0 68 19 150/67 (94) 96 04/03/19 23:54 98.2 65 19 138/82 (100) 96 04/03/19 21:03 147/87 04/03/19 21:00 Room Air 04/03/19 20:16 98.6 69 19 142/89 (106) 97 04/03/19 19:59 62 20 96 Room Air 21 04/03/19 17:18 170/86 04/03/19 17:18 61 170/86 04/03/19 16:00 97.8 61 21 170/86 (114) 96 04/03/19 14:29 166/91 04/03/19 12:19 68 166/91 04/03/19 12:00 98.4 68 20 166/91 (116) 98 04/03/19 09:10 70 20 97 Room Air 21 04/03/19 09:00 Room Air Intake and Output 04/03/19 04/04/19 19:00 07:00 Intake Total 1875 ml 1030 ml Balance 1875 ml 1030 ml Intake Oral 1320 ml 480 ml IV Total 555 ml 550 ml # Voids 6 6 Current Medications Medications (Trade) Dose Ordered Sig/Bogdan Route PRN Reason Start Time Stop Time Status Last Admin Dose Admin Acetaminophen/ Hydrocodone Bitart (Provencal 5/325) 1 tab Q6H PRN ORAL For Pain 03/31/19 21:45 04/07/19 21:44 04/04/19 05:28 Albuterol Sulfate (Proventil MDI) 1 puff Q6H PRN INH Shortness of Breath 04/01/19 06:30 05/01/19 00:00 Atorvastatin Calcium (Lipitor) 5 mg BEDTIME ORAL 04/01/19 21:00 05/01/19 20:59 04/03/19 21:02 Ceftriaxone Sodium 1 gm/ Dextrose 55 ml @ 110 mls/hr Q24H IVPB 04/03/19 15:00 04/10/19 14:59 04/03/19 15:00 Clonazepam (KlonoPIN) 0.5 mg TID ORAL 04/01/19 09:00 04/08/19 08:59 04/04/19 08:40 Dextrose (Dextrose 50%) 25 ml Q30M PRN IV Hypoglycemia 04/01/19 08:15 05/01/19 08:14 Dextrose (Dextrose 50%) 50 ml Q30M PRN IV Hypoglycemia 04/01/19 08:15 05/01/19 08:14 Fluphenazine HCl (Prolixin) 5 mg BID ORAL 04/01/19 09:00 05/01/19 08:59 04/04/19 08:41 Fluphenazine HCl (Prolixin) 10 mg BEDTIME ORAL 04/01/19 21:00 05/01/19 20:59 04/03/19 21:01 Gabapentin (Neurontin) 300 mg BID ORAL 04/01/19 09:00 05/01/19 08:59 04/04/19 08:40 Guaifenesin/ Dextromethorphan (Robitussin DM Syrup) 10 ml Q8H PRN ORAL cough 03/31/19 21:45 04/30/19 21:44 04/03/19 21:02 Heparin Sodium (Porcine) (Heparin 5000 units/ml) 5,000 units EVERY 12 HOURS SUBQ 04/03/19 21:00 05/03/19 20:59 04/04/19 08:41 Hydralazine HCl (Apresoline) 25 mg Q4HR PRN ORAL bp over 160 syst 03/31/19 21:30 04/30/19 21:29 04/02/19 02:23 Hydralazine HCl (Apresoline) 100 mg Q8HR ORAL 04/01/19 14:00 05/01/19 08:59 04/04/19 05:28 Insulin Aspart (NovoLOG) BEFORE MEALS AND HS SUBQ 04/01/19 11:30 05/01/19 11:29 04/02/19 20:47 Labetalol HCl (Normodyne) 200 mg TID ORAL 04/01/19 13:00 05/01/19 08:59 04/04/19 08:41 Lisinopril (ZestriL) 10 mg BID ORAL 04/03/19 18:00 05/02/19 08:59 04/04/19 08:40 Metformin HCl (Glucophage) 500 mg TIAC ORAL 04/01/19 16:30 05/01/19 16:29 04/04/19 05:27 Ondansetron HCl (Zofran) 4 mg Q6H PRN IVP Nausea & Vomiting 04/03/19 08:45 05/03/19 08:44 04/03/19 09:39 Sitagliptin Phosphate (Januvia) 100 mg DAILY ORAL 04/01/19 09:00 05/01/19 08:59 04/04/19 08:40 Sodium Chloride 1,000 ml @ 50 mls/hr Q20H IV 03/31/19 21:30 04/30/19 21:29 04/03/19 14:30 Trihexyphenidyl HCl (Artane) 2 mg TID ORAL 04/01/19 12:00 05/01/19 11:59 04/04/19 08:40 Height (Feet): 5 Height (Inches): 3.00 Weight (Pounds): 219 General Appearance: no apparent distress Objective no change Nikita Herrera MD Apr 04, 2019 08:54
--- NOTE | 2019-04-04 09:30 | NUR ---
nurse notes discharge back to assisted living obtained, patient stated she refused to go back to assisted living, patient notified daughter and daughter called me stated she will come and talk to the social insurance analyst, notified PMD regarding patient concern with order SW to see patient becki nelson
[2019-04-04] MEDS ORDERED: Tubing IV Secondary IV ONE (09:39)
--- NOTE | 2019-04-04 11:00 | NUR ---
nurse notes social director spoke to patient family and agreed , patient back to assisted living, per daughter no need to call ambulance she will bring [facility]
--- NOTE | 2019-04-04 11:06 | Infectious Diseases Prog Note ---
Assessment/Plan Assessment/Plan IMPRESSION: Dysuria & hematuria COPD, bronchitis. diabetes mellitus, obesity, hypertension, history of psychiatric problem, depression, vague history of ulcerative colitis. RECOMMENDATIONS: So far urine culture is negative Discontinue Rocephin Subjective ROS Limited/Unobtainable: Yes Respiratory: Reports: no symptoms Genitourinary: Reports: dysuria Allergies: Coded Allergies: METRONIDAZOLE (Unverified Allergy, Severe, 04/14/17) vomiting, rash SULFA (SULFONAMIDE ANTIBIOTICS) (Unverified Allergy, Severe, 07/24/17) RASH ALL OVER THE BODY, SWELLING SULFAMETHOXAZOLE (Unverified Allergy, Unknown, 11/25/17) TRIMETHOPRIM (Unverified Allergy, Unknown, 11/25/17) Objective Vital Signs Last 24 Hour Vital Signs Date Time Temp Pulse Resp B/P (MAP) Pulse Ox O2 Delivery O2 Flow Rate FiO2 04/04/19 08:50 Room Air 04/04/19 08:41 68 152/64 04/04/19 08:40 152/64 04/04/19 08:00 97.7 76 18 139/86 (103) 96 04/04/19 05:28 152/64 04/04/19 04:00 98.0 68 19 150/67 (94) 96 04/03/19 23:54 98.2 65 19 138/82 (100) 96 04/03/19 21:03 147/87 04/03/19 21:00 Room Air 04/03/19 20:16 98.6 69 19 142/89 (106) 97 04/03/19 19:59 62 20 96 Room Air 21 04/03/19 17:18 170/86 04/03/19 17:18 61 170/86 04/03/19 16:00 97.8 61 21 170/86 (114) 96 04/03/19 14:29 166/91 04/03/19 12:19 68 166/91 04/03/19 12:00 98.4 68 20 166/91 (116) 98 Height (Feet): 5 Height (Inches): 3.00 Weight (Pounds): 219 General Appearance: no acute distress HEENT: mucous membranes moist Respiratory/Chest: lungs clear Cardiovascular: normal rate Abdomen: soft, non tender Extremities: no edema Neurologic/Psychiatric: alert, responsive Microbiology Date/Time Source Procedure Growth Status 04/03/19 15:37 Urine,Clean Catch Urine Culture - Preliminary NO GROWTH Resulted Current Medications Medications (Trade) Dose Ordered Sig/Bogdan Route PRN Reason Start Time Stop Time Status Last Admin Dose Admin Acetaminophen/ Hydrocodone Bitart ([place] 5/325) 1 tab Q6H PRN ORAL For Pain 03/31/19 21:45 04/07/19 21:44 04/04/19 05:28 Albuterol Sulfate (Proventil MDI) 1 puff Q6H PRN INH Shortness of Breath 04/01/19 06:30 05/01/19 00:00 Atorvastatin Calcium (Lipitor) 5 mg BEDTIME ORAL 04/01/19 21:00 05/01/19 20:59 04/03/19 21:02 Ceftriaxone Sodium 1 gm/ Dextrose 55 ml @ 110 mls/hr Q24H IVPB 04/03/19 15:00 04/10/19 14:59 04/03/19 15:00 Clonazepam (KlonoPIN) 0.5 mg TID ORAL 04/01/19 09:00 04/08/19 08:59 04/04/19 08:40 Dextrose (Dextrose 50%) 25 ml Q30M PRN IV Hypoglycemia 04/01/19 08:15 05/01/19 08:14 Dextrose (Dextrose 50%) 50 ml Q30M PRN IV Hypoglycemia 04/01/19 08:15 05/01/19 08:14 Fluphenazine HCl (Prolixin) 5 mg BID ORAL 04/01/19 09:00 05/01/19 08:59 04/04/19 08:41 Fluphenazine HCl (Prolixin) 10 mg BEDTIME ORAL 04/01/19 21:00 05/01/19 20:59 04/03/19 21:01 Gabapentin (Neurontin) 300 mg BID ORAL 04/01/19 09:00 05/01/19 08:59 04/04/19 08:40 Guaifenesin/ Dextromethorphan (Robitussin DM Syrup) 10 ml Q8H PRN ORAL cough 03/31/19 21:45 04/30/19 21:44 04/03/19 21:02 Heparin Sodium (Porcine) (Heparin 5000 units/ml) 5,000 units EVERY 12 HOURS SUBQ 04/03/19 21:00 05/03/19 20:59 04/04/19 08:41 Hydralazine HCl (Apresoline) 25 mg Q4HR PRN ORAL bp over 160 syst 03/31/19 21:30 04/30/19 21:29 04/02/19 02:23 Hydralazine HCl (Apresoline) 100 mg Q8HR ORAL 04/01/19 14:00 05/01/19 08:59 04/04/19 05:28 Insulin Aspart (NovoLOG) BEFORE MEALS AND HS SUBQ 04/01/19 11:30 05/01/19 11:29 04/02/19 20:47 Labetalol HCl (Normodyne) 200 mg TID ORAL 04/01/19 13:00 05/01/19 08:59 04/04/19 08:41 Lisinopril (ZestriL) 10 mg BID ORAL 04/03/19 18:00 05/02/19 08:59 04/04/19 08:40 Metformin HCl (Glucophage) 500 mg TIAC ORAL 04/01/19 16:30 05/01/19 16:29 04/04/19 05:27 Ondansetron HCl (Zofran) 4 mg Q6H PRN IVP Nausea & Vomiting 04/03/19 08:45 05/03/19 08:44 04/03/19 09:39 Sitagliptin Phosphate (Januvia) 100 mg DAILY ORAL 04/01/19 09:00 05/01/19 08:59 04/04/19 08:40 Sodium Chloride 1,000 ml @ 50 mls/hr Q20H IV 03/31/19 21:30 04/30/19 21:29 04/03/19 14:30 Trihexyphenidyl HCl (Artane) 2 mg TID ORAL 04/01/19 12:00 05/01/19 11:59 04/04/19 08:40 Pavel Britt MD Apr 04, 2019 11:06
[2019-04-04 12:11] VITALS: BP 135/83
[2019-04-04 12:15] VITALS: BP 135/83
--- NOTE | 2019-04-04 13:18 | NUR ---
nurse notes discharged in stable condition accompanied by family member wheeled by manufacturer's representative to the parking area, discharged via private car discharged in stable condition, Dr Vasquez agreed patient will be discharged via private car all belongings taken becki nelson
--- NOTE | 2019-04-04 13:21 | NUR ---
Social Work This SW received a consult to assist with discharge planning; daughter requesting other placement for patient. This Sw met with patient, along with daughter, Sarah ([phone]) who explains they are not happy with the care at Board[facility]Care and wanting other Board/Care or Assisted Living. Patients SSI was paid for this month into her current Board and Care. This SW recommended seeking Board/Care and using next monthly income to cover the costs for the new Board and Care at the beginning of next month. List of placement agencies provided to daughter, along with list of Assisted Living and Board/Care. Daughter also plans to file complaint with the [facility] regarding her complaints (contact information provided). Daughter plans to transport patient back to her Board and Care this morning. No other needs or concerns at this time.
--- NOTE | 2019-04-04 19:16 | Hematology/Onc Progress Note ---
Assessment/Plan Assessment/Plan # Hemoptysis v Nonproductive cough with hemoptysis per patient --> now appears to have resolved --> hx of copd in the past, remote related --> as per pulm, does not appear exacerbation or malignancy related--> imaging has been noted # Dysuria & hematuria --> as per ID --> ua and culture and is currently off abx # Diabetes mellitus, --> a1c goal <9 --> accuchecks aqc and qhs --> on iss # Obesity, --> rec weight loss --> per gi, lifestyle modification # Hypertension, --> per cards # History of psychiatric problem, --> as per psych eval # Depression, --> meds reviewed # Vague history of ulcerative colitis. --> gi eval as needed # Encephalopathy ? Metabolic --> renal aware # Mild Low Na # Psych history Appreciate consultation and dw Rn Subjective Allergies: Coded Allergies: METRONIDAZOLE (Unverified Allergy, Severe, 04/14/17) vomiting, rash SULFA (SULFONAMIDE ANTIBIOTICS) (Unverified Allergy, Severe, 07/24/17) RASH ALL OVER THE BODY, SWELLING SULFAMETHOXAZOLE (Unverified Allergy, Unknown, 11/25/17) TRIMETHOPRIM (Unverified Allergy, Unknown, 11/25/17) Subjective 04/03: no bleeding, no night sweats, meds noted, no bleeding, no f/c 04/04: awake, no acute distress stable for dc Objective Objective Last 24 Hour Vital Signs Date Time Temp Pulse Resp B/P (MAP) Pulse Ox O2 Delivery O2 Flow Rate FiO2 04/04/19 12:15 82 135/83 04/04/19 12:11 97.9 82 17 135/83 (100) 96 04/04/19 08:50 Room Air 04/04/19 08:41 68 152/64 04/04/19 08:40 152/64 04/04/19 08:00 97.7 76 18 139/86 (103) 96 04/04/19 05:28 152/64 04/04/19 04:00 98.0 68 19 150/67 (94) 96 04/03/19 23:54 98.2 65 19 138/82 (100) 96 04/03/19 21:03 147/87 04/03/19 21:00 Room Air 04/03/19 20:16 98.6 69 19 142/89 (106) 97 04/03/19 19:59 62 20 96 Room Air 21 04/03/19 17:18 170/86 04/03/19 17:18 61 170/86 04/03/19 16:00 97.8 61 21 170/86 (114) 96 04/03/19 14:29 166/91 04/03/19 12:19 68 166/91 04/03/19 12:00 98.4 68 20 166/91 (116) 98 04/03/19 09:10 70 20 97 Room Air 21 04/03/19 09:00 Room Air 04/03/19 08:45 155/84 04/03/19 08:45 76 155/84 04/03/19 08:00 98.0 76 19 155/84 (107) 97 04/03/19 05:50 158/73 04/03/19 04:00 98.0 96 18 152/88 (109) 85 04/02/19 23:31 97.4 95 18 147/82 (103) 85 04/02/19 21:13 165/86 04/02/19 21:00 Room Air 04/02/19 20:22 94 18 95 Room Air 21 04/02/19 20:00 97.6 96 18 168/85 (112) 96 Intake and Output 04/03/19 04/04/19 19:00 07:00 Intake Total 1875 ml 1080 ml Balance 1875 ml 1080 ml Intake Oral 1320 ml 480 ml IV Total 555 ml 600 ml # Voids 6 6 Labs Test 04/02/19 05:35 White Blood Count 8.4 K/UL (4.8-10.8) Red Blood Count 4.46 M/UL (4.20-5.40) Hemoglobin 13.2 G/DL (12.0-16.0) Hematocrit 38.6 % (37.0-47.0) Mean Corpuscular Volume 86 FL (80-99) Mean Corpuscular Hemoglobin 29.5 PG (27.0-31.0) Mean Corpuscular Hemoglobin Concent 34.1 G/DL (32.0-36.0) Red Cell Distribution Width 12.3 % (11.6-14.8) Platelet Count 293 K/UL (150-450) Mean Platelet Volume 5.7 FL (6.5-10.1) Neutrophils (%) (Auto) 58.3 % (45.0-75.0) Lymphocytes (%) (Auto) 29.7 % (20.0-45.0) Monocytes (%) (Auto) 8.9 % (1.0-10.0) Eosinophils (%) (Auto) 1.7 % (0.0-3.0) Basophils (%) (Auto) 1.5 % (0.0-2.0) Sodium Level 136 MMOL/L (136-145) Potassium Level 4.2 MMOL/L (3.5-5.1) Chloride Level 103 MMOL/L (98-107) Carbon Dioxide Level 24 MMOL/L (21-32) Anion Gap 9 mmol/L (5-15) Blood Urea Nitrogen 6 mg/dL (7-18) Creatinine 0.6 MG/DL (0.55-1.30) Estimat Glomerular Filtration Rate > 60 mL/min (>60) Glucose Level 124 MG/DL (74-106) Uric Acid 4.4 MG/DL (2.6-7.2) Calcium Level 9.0 MG/DL (8.5-10.1) Phosphorus Level 5.6 MG/DL (2.5-4.9) Magnesium Level 2.0 MG/DL (1.8-2.4) Total Bilirubin 0.2 MG/DL (0.2-1.0) Aspartate Amino Transf (AST/SGOT) 19 U/L (15-37) Alanine Aminotransferase (ALT/SGPT) 26 U/L (12-78) Alkaline Phosphatase 65 U/L (46-116) Total Protein 7.1 G/DL (6.4-8.2) Albumin 3.5 G/DL (3.4-5.0) Globulin 3.6 g/dL Albumin/Globulin Ratio 1.0 (1.0-2.7) Height (Feet): 5 Height (Inches): 3.00 Weight (Pounds): 219 Objective Vitals: reviewed, stable General Appearance: NAD HEENT: normocephalic, atraumatic Neck: non-tender, normal alignment Respiratory/Chest: normal breath sounds bilaterally Cardiovascular/Chest: normal peripheral pulses, normal rate Abdomen: normal bowel sounds, soft, nontender Extremities: normal range of motion Salty Kendall MD Apr 04, 2019 19:16
--- NOTE | 2019-04-04 23:35 | General Progress Note ---
Assessment/Plan Status: progressing Assessment/Plan: Assessment - reported history of UC, extent not clear, off meds - h/o colon polyps Recommendations - follow symptoms conservatively - advised to get another colonoscopy as outpatient - monitor for rectal bleeding Subjective Allergies: Coded Allergies: METRONIDAZOLE (Unverified Allergy, Severe, 04/14/17) vomiting, rash SULFA (SULFONAMIDE ANTIBIOTICS) (Unverified Allergy, Severe, 07/24/17) RASH ALL OVER THE BODY, SWELLING SULFAMETHOXAZOLE (Unverified Allergy, Unknown, 11/25/17) TRIMETHOPRIM (Unverified Allergy, Unknown, 11/25/17) Subjective Seen this am just prior to d/c d/w daughter no BM since yesterday advised to f/u with Dr. Booth as outpatient Objective Last 24 Hour Vital Signs Date Time Temp Pulse Resp B/P (MAP) Pulse Ox O2 Delivery O2 Flow Rate FiO2 04/04/19 12:15 82 135/83 04/04/19 12:11 97.9 82 17 135/83 (100) 96 04/04/19 08:50 Room Air 04/04/19 08:41 68 152/64 04/04/19 08:40 152/64 04/04/19 08:00 97.7 76 18 139/86 (103) 96 04/04/19 05:28 152/64 04/04/19 04:00 98.0 68 19 150/67 (94) 96 04/03/19 23:54 98.2 65 19 138/82 (100) 96 Intake and Output 04/03/19 04/04/19 19:00 07:00 Intake Total 1875 ml 1080 ml Balance 1875 ml 1080 ml Intake Oral 1320 ml 480 ml IV Total 555 ml 600 ml # Voids 6 6 Height (Feet): 5 Height (Inches): 3.00 Weight (Pounds): 219 Objective Obese woman NCAT supple CTA RR abd soft ND NT no edema Zak Manuel MD Apr 04, 2019 23:35
--- NOTE | 2019-04-05 12:25 | Discharge Summary ---
Discharge Summary Discharge Summary _ DATE OF ADMISSION: 03/31/2019 DATE OF DISCHARGE: 04/04/2019 DISCHARGED BY: Dr. Vasquez REASON FOR ADMISSION: 88 years old female with past medical history of hypertension, COPD, diabetes mellitus type 2, uterine cancer , status post partial hysterectomy, ulcerative colitis, was brought by ambulance . She reported dysuria , hematuria and nonproductive cough. Patient was not on any anticoagulation. Upon evaluation vital signs were stable. Laboratory work-up revealed no leukocytosis, stable hemoglobin and hematocrit. Sodium 130. Chloride 95. Stable renal parameters. Glucose 148. Stable LFT. Lipase 70. Urinalysis revealed no evidence of urinary tract infection. No microscopic hematuria. Chest x-ray demonstrated no acute cardiopulmonary pathology. Patient subsequently admitted for further management. CONSULTANTS: ID specialist Dr. Britt GI specialist Dr. Manuel preforms laminator Dr. Herrera dormitory keeper/oncologist Dr. Kendall [facility] COURSE: Patient admitted to medical surgical floor. Patient complained of dysuria and pyuria, however urinalysis was negative. Patient started initially on empiric antibiotics for possible UTI and bronchitis. Urine culture was negative. Initially started empiric antibiotic discontinued. Symptomatic treatment provided. ID specialist recommended to keep patient off antibiotics. No leukocytosis , no fevers. Supplemental oxygen provided as needed to keep pulse oximetry above 92%. Nebulizing treatment with bronchodilator was on board as needed. Antitussive provided as needed. Patient was hydrated Renal parameters and electrolytes were closely monitored. Electrolytes corrected as needed. Nephrotoxins were avoided. Hotel Or Motel Manager followed. Hyponatremia work-up initiated. Prior to discharge sodium 136. Patient reported history of ulcerative colitis, however extent was not clear. Patient was not on any medication for ulcerative colitis. GI specialist recommended follow-up symptoms conservatively. Patient was advised to get another colonoscopy as outpatient. Patient was advised to monitor for rectal bleeding. Hemoglobin and hematocrit remained stable DVT prophylaxis provided. Blood pressure was managed with KRISTIAN inhibitor, hydralazine and beta-deangelo. Blood sugar was managed with metformin and Januvia. Sliding scale of insulin was on board as needed. Statin continued. Psychiatric medications continued. Supportive care provided. Patient clinically stabilized and was ready for discharge home FINAL DIAGNOSES: Encephalopathy likely metabolic Hyponatremia-resolved Obesity Obstructive sleep apnea Dysuria -resolved COPD Bronchitis Diabetes mellitus Obesity Hypertension Vague history of ulcerative colitis Depression History of psychiatric problem DISCHARGE MEDICATIONS: See Medication Reconciliation list. DISCHARGE INSTRUCTIONS: Patient was discharged home follow-up with a primary care provider as outpatient. I have been assigned to dictate discharge summary for this account. I was not involved in the patient's management. Deb Bonilla NP Apr 05, 2019 12:25
== END 2019-04-04 13:13 | disposition home or self-care (01) | DRG 640 ==
LOC: EDUNIT# 13:30 → EDBD 13:30 → EMR 14:25 → 4E 16:13 → EDBEDREQ 17:40
DX: E87.1 Hypo-osmolality and hyponatremia (principal); G93.41 Metabolic encephalopathy; H92.09 Otalgia, unspecified ear; E66.9 Obesity, unspecified; Z68.38 Body mass index [BMI] 38.0-38.9, adult; J40 Bronchitis, not specified as acute or chronic; Z88.1 Allergy status to other antibiotic agents; Z88.2 Allergy status to sulfonamides; Z88.8 Allergy status to other drugs, medicaments and biological substances; E78.5 Hyperlipidemia, unspecified; I10 Essential (primary) hypertension; E11.9 Type 2 diabetes mellitus without complications; F17.200 Nicotine dependence, unspecified, uncomplicated; Z85.42 Personal history of malignant neoplasm of other parts of uterus; G47.33 Obstructive sleep apnea (adult) (pediatric); Z87.19 Personal history of other diseases of the digestive system; F32.9 Major depressive disorder, single episode, unspecified
CPT/HCPCS: 36415; 71045; 80053; 80061; 81003; 82962; 83036; 83690; 83735; 83930; 83935; 84100; 84300; 84443; 84484; 84550; 85025; 85610; 85730; 86850; 86900; 86901; 87081; 87086; 94640; 94664; 99285; J1815; J2405; J7030; J7620

== ENCOUNTER 2019-09-13 11:23 | Inpatient (IN) | payer MEDICARE, MEDICAID ==
[~2019-09-13] VITALS: Ht 167.6 cm; Wt 121.6 kg
[~2019-09-13 11:23] MED LIST changes: +FUROSEMIDE20 M1 ORAL; +MICARDIS80 MG ORAL
[2019-09-13] MEDS ORDERED: Vancomycin 1.5gm/NS Premix 275 ML IVPB ONE (11:30)
--- NOTE | 2019-09-13 11:46 | Emergency Room Report ---
History of Present Illness General Chief Complaint: Wound Recheck/Suture Removal Source: Patient Present Illness HPI 59-year-old female history of hypertension, smoking presents with right campbell swelling, erythema x3 days no aggravating relieving factor she endorses achy pain severity is moderate, constant no fevers no chills patient presents from assisted living Allergies: Coded Allergies: METRONIDAZOLE (Unverified Allergy, Severe, 04/14/17) vomiting, rash SULFA (SULFONAMIDE ANTIBIOTICS) (Unverified Allergy, Severe, 07/24/17) RASH ALL OVER THE BODY, SWELLING SULFAMETHOXAZOLE (Unverified Allergy, Unknown, 11/25/17) TRIMETHOPRIM (Unverified Allergy, Unknown, 11/25/17) Uncoded Allergies: SULFANOMIDES (Allergy, Unknown, 09/13/19) COVID-19 Screening Contact w/high risk pt: No Experienced COVID-19 symptoms?: No COVID-19 Testing performed [employer]: No Patient History Past Medical History: see triage record Last Menstrual Period: na Reviewed Nursing Documentation: PMH: Agreed; PSxH: Agreed Nursing Documentation-PMH Past Medical History: No History, Except For Hx Hypertension: Yes Hx COPD: Yes Hx Diabetes: Yes Hx Cancer: Yes - skin cancer Hx Gastrointestinal Problems: Yes - hx of colon polyps and ulcerative colitis History Of Psychiatric Problem: Yes - depression Hx Neurological Problems: No Review of Systems All Other Systems: negative except mentioned in HPI Physical Exam Vital Signs Date Time Temp Pulse Resp B/P (MAP) Pulse Ox O2 Delivery O2 Flow Rate FiO2 09/13/19 11:16 98.1 80 18 126/78 (94) 94 Nasal Cannula 4.0 Sp02 EP Interpretation: reviewed, normal General Appearance: well appearing, no apparent distress, alert Head: normocephalic, atraumatic Eyes: bilateral eye PERRL, bilateral eye EOMI ENT: uvula midline, moist mucus membranes Neck: supple, thyroid normal, supple/symm/no masses Respiratory: lungs clear, no respiratory distress, no retraction, no accessory muscle use Cardiovascular #1: normal peripheral pulses, regular rate, rhythm, no edema, no gallop, no murmur Gastrointestinal: non tender, soft, no guarding, no rebound Musculoskeletal: normal inspection Neurologic: alert, oriented x3 Psychiatric: mood/affect normal Skin: warm/dry, other - Right campbell: Erythema, drainage, wound present Medical Decision Making Diagnostic Impression: Primary Impression: Cellulitis Qualified Codes: L03.115 - Cellulitis of right lower limb ER Course 59-year-old female presents with cellulitis of the right lower extremity, vancomycin started Patient will be admitted for wound care, antibiotics. Patient admitted to Dr. Vasquez Laboratory Tests Test 09/13/19 11:40 White Blood Count 11.3 K/UL (4.8-10.8) H Red Blood Count 4.41 M/UL (4.20-5.40) Hemoglobin 12.5 G/DL (12.0-16.0) Hematocrit 38.6 % (37.0-47.0) Mean Corpuscular Volume 87 FL (80-99) Mean Corpuscular Hemoglobin 28.4 PG (27.0-31.0) Mean Corpuscular Hemoglobin Concent 32.5 G/DL (32.0-36.0) Red Cell Distribution Width 13.2 % (11.6-14.8) Platelet Count 314 K/UL (150-450) Mean Platelet Volume 7.1 FL (6.5-10.1) Neutrophils (%) (Auto) 65.4 % (45.0-75.0) Lymphocytes (%) (Auto) 23.1 % (20.0-45.0) Monocytes (%) (Auto) 7.9 % (1.0-10.0) Eosinophils (%) (Auto) 2.5 % (0.0-3.0) Basophils (%) (Auto) 1.1 % (0.0-2.0) Sodium Level 136 MMOL/L (136-145) Potassium Level 4.3 MMOL/L (3.5-5.1) Chloride Level 100 MMOL/L (98-107) Carbon Dioxide Level 25 MMOL/L (21-32) Anion Gap 11 mmol/L (5-15) Blood Urea Nitrogen 8 mg/dL (7-18) Creatinine 0.8 MG/DL (0.55-1.30) Estimated Glomerular Filtration Rate > 60 mL/min (>60) Glucose Level 119 MG/DL (74-106) H Lactic Acid Level 1.30 mmol/L (0.4-2.0) Calcium Level 9.7 MG/DL (8.5-10.1) Total Bilirubin 0.1 MG/DL (0.2-1.0) L Aspartate Amino Transferase (AST) 16 U/L (15-37) Alanine Aminotransferase (ALT) 23 U/L (12-78) Alkaline Phosphatase 85 U/L (46-116) Troponin I 0.000 ng/mL (0.000-0.056) C-Reactive Protein, Quantitative 1.8 mg/dL (0.00-0.90) H Total Protein 7.6 G/DL (6.4-8.2) Albumin 3.9 G/DL (3.4-5.0) Globulin 3.7 g/dL Albumin/Globulin Ratio 1.1 (1.0-2.7) Rhythm Strip Diag. Results Rhythm Strip Time: 13:51 EP Interpretation: yes Rate: 80 Rhythm: NSR, no PVC's, no ectopy Other X-Ray Diagnostic Results Other X-Ray Diagnostic Results : X-Ray ordered: Tibia-fibula # of Views/Limited Vs Complete: 3 View Indication: Pain Interpretation: no dislocation, no soft tissue swelling, no fractures Impression: No acute disease Electronically Signed by: Kaiden Becerra MD Last Vital Signs Date Time Temp Pulse Resp B/P (MAP) Pulse Ox O2 Delivery O2 Flow Rate FiO2 09/13/19 11:16 98.1 80 18 126/78 (94) 94 Nasal Cannula 4.0 Disposition: ADMITTED INPATIENT Condition: Stable Kaiden Becerra MD Sep 13, 2019 11:46
--- NOTE | 2019-09-13 11:50 | NUR ---
ED Nurse Note: Pt arrived with [facility] from [facility]. pt has bilateral campbell pressure ulcers. pt 100 on2 L nasal cannula. pt is aox4.
--- NOTE | 2019-09-13 12:01 | NUR ---
ED Nurse Note: xray done
[2019-09-13 12:25] VITALS: BP 100/48
[2019-09-13 12:58] LABS: ANION GAP 11 mmol/L (5-15); BLOOD UREA NITROGEN 8 mg/dL (7-18); CALCIUM 9.7 MG/DL (8.5-10.1); CARBON DIOXIDE 25 MMOL/L (21-32); CHLORIDE 100 MMOL/L (98-107); CREATININE 0.8 MG/DL (0.55-1.30); POTASSIUM 4.3 MMOL/L (3.5-5.1); SODIUM 136 MMOL/L (136-145)
[2019-09-13 13:00] LABS: BASOPHILS % (AUTO) 1.1 % (0.0-2.0); EOSINOPHILS % (AUTO) 2.5 % (0.0-3.0); HEMATOCRIT 38.6 % (37.0-47.0); HEMOGLOBIN 12.5 G/DL (12.0-16.0); LYMPHOCYTES % (AUTO) 23.1 % (20.0-45.0); MEAN CORPUSCULAR VOLUME 87 FL (80-99); MONOCYTES % (AUTO) 7.9 % (1.0-10.0); NEUTROPHILS % (AUTO) 65.4 % (45.0-75.0); PLATELET COUNT 314 K/UL (150-450); RED BLOOD COUNT 4.41 M/UL (4.20-5.40); RED CELL DISTRIBUTION WIDTH 13.2 % (11.6-14.8); WHITE BLOOD COUNT 11.3 K/UL (4.8-10.8)
[2019-09-13 13:15] LABS: ALANINE AMINOTRANSFERASE 23 U/L (12-78); ALBUMIN 3.9 G/DL (3.4-5.0); ALBUMIN/GLOBULIN RATIO 1.1 (1.0-2.7); ALKALINE PHOSPHATASE 85 U/L (46-116); ASPARTATE AMINO TRANSFERASE 16 U/L (15-37); BILIRUBIN,TOTAL 0.1 MG/DL (0.2-1.0)
--- NOTE | 2019-09-13 13:17 | NUR ---
ED Nurse Note: Additional Lavender top per order, obtained and sent to lab
[2019-09-13 13:18] VITALS: BP 115/52
--- NOTE | 2019-09-13 14:14 | Diagnostic Imaging Report ---
Indication: Right leg pain Technique: 2 views of the right tibia and fibula Comparison: none Findings: No acute fractures. No dislocations. No radiopaque foreign body. There are vascular calcifications noted. There appears to be edema of the subcutaneous fat Impression: No acute bony trauma
--- NOTE | 2019-09-13 14:24 | NUR ---
ED Nurse Note: PT RESTING IN BED, VSS. NAD NOTED.
--- NOTE | 2019-09-13 14:36 | NUR ---
ED Nurse Note: TELEPHONE REPORT GIVEN TO JILL DAVIDSON FOR CONTINUITY OF CARE
--- NOTE | 2019-09-13 14:50 | NUR ---
NURSE NOTES: Received patient from ER. Patient AAOx4, bedrest, on NC 3L/M. Patient in stable condition, VS stable, IV site patent and intact. Belongings checked with patient. RN noted cellulitis on bilateral campbell and educated patient not to scratch. Skin is intact. Bed is locked and placed in lowest position with bed alarm on. Call light within reach. Will continue to monitor
--- NOTE | 2019-09-13 14:50 | NUR ---
TRANSFER TO FLOOR: Patient transferred to ms as ordered, per ermd. Report given to becki clayton. Belongings given to pt.
[2019-09-13 16:00] VITALS: BP 141/76
--- NOTE | 2019-09-13 16:59 | NUR ---
NURSE NOTES: RN notified Christina Jones regarding the need to go over home medication of patient. No order has been put in yet. Awaiting call back
[2019-09-13] MEDS ORDERED: guaiFENesin /DM 10ml syrup ORAL PRN (18:00)
[2019-09-13] MEDS: Oxybutynin 5mg tab ORAL SCH (18:56)
[2019-09-13] MEDS: HydrALAZINE 50mg tab ORAL SCH (18:56)
[2019-09-13] MEDS: clonazePAM 0.5mg tab ORAL SCH (18:56)
[2019-09-13] MEDS: Trihexyphenidyl 2mg tab ORAL SCH (18:56)
--- NOTE | 2019-09-13 19:10 | NUR ---
Received pt. in bed, awake, alert and oriented, able to make needs known. With O2 @ 4lpm via nc, well tolerated. Call light is within reach. Denies any pain at this time. Will continue to monitor.
--- NOTE | 2019-09-13 19:10 | NUR ---
NURSE NOTES: [].Report received from Dontrell MELCHOR.
--- NOTE | 2019-09-13 19:16 | NUR ---
HAND-OFF: Report given to JILL Knight.
[2019-09-13] MEDS: HYDROcodone/Acetamin 5/325 tab ORAL PRN (20:37)
[2019-09-13] MEDS: Heparin 5000 units/ml inj SUBQ SCH (20:39)
[2019-09-13 21:00] VITALS: BP 90/53
--- NOTE | 2019-09-13 23:45 | History and Physical Report ---
DATE OF ADMISSION: 09/13/2019 HISTORY OF PRESENT ILLNESS: Patient admitted for cellulitis. Patient has basically the right leg cellulitis, erythema for couple of days and pain. Patient also has edema. Denies fever or chills. Denies shortness of breath. Denies cough. Denies wheezing. Patient admitted for cellulitis and IV antibiotics. PAST MEDICAL HISTORY: Hypertension, COPD, obesity, history of skin cancer, history of colon polyps, ulcerative colitis, history of depression, psychosis, hyperlipidemia, urinary incontinence, neuropathy, chronic pain syndrome, NIDDM, sleep apnea, history of thyroid disease. PAST SURGICAL HISTORY: Neck surgery. ALLERGIES: To Flagyl, sulfa. MEDICATIONS: Lasix, Klonopin, albuterol, Januvia, Micardis, Artane, nifedipine, hydralazine, Neurontin, Lasix. FAMILY HISTORY: Noncontributory. SOCIAL HISTORY: Denies history of smoking. Denies history of alcohol or illicit drugs. Comes from assisted living. REVIEW OF SYSTEMS: HEENT: Denies headache. RESPIRATORY: Denies shortness of breath. Denies cough. CARDIOVASCULAR: Denies chest pain. Denies nausea, vomiting, or diarrhea. EXTREMITIES: Reports lower extremity pain and has back pain, which is chronic. CENTRAL NERVOUS SYSTEM: Denies change in speech. Has history of depression. Reflexes equal on both sides. Dorsalis pedis pulses are present. PHYSICAL EXAMINATION: VITAL SIGNS: Temperature is 98.5, pulse 72, blood pressure 122/54. HEENT: PERRLA. CHEST: Clear to auscultation. CARDIOVASCULAR: Regular rate and rhythm. No murmurs or extra sounds. GASTROINTESTINAL: Soft, nontender, nondistended. No organomegaly. EXTREMITIES: Does have erythema and warm to touch on the right lower extremity. Edema on both sides. Dorsalis pedis pulses are present. NEUROLOGIC: Generalized weakness which is chronic and oriented x2. LABORATORY DATA: WBC of 11.3, hemoglobin of 12.5, platelets of 314. Sodium 136, potassium 4.3, BUN of 8, creatinine 0.8. ASSESSMENT AND PLAN: Cellulitis of lower extremity and depression and psychosis. I have asked Dr. Pavel Britt and Dr. Meza see the patient for the above-mentioned abnormalities and symptoms and abnormal laboratories. Antibiotics per Dr. Pavel Britt. Ali Ramez Vasquez DR: ANDREZ JOB#: [id number] CC:
[2019-09-14] VITALS: BP 106/59
[2019-09-14 04:00] VITALS: BP 137/68
[2019-09-14 05:47] LABS: BASOPHILS % (AUTO) 1.4 % (0.0-2.0); EOSINOPHILS % (AUTO) 1.4 % (0.0-3.0); HEMATOCRIT 39.2 % (37.0-47.0); HEMOGLOBIN 12.5 G/DL (12.0-16.0); LYMPHOCYTES % (AUTO) 23.1 % (20.0-45.0); MEAN CORPUSCULAR VOLUME 87 FL (80-99); MONOCYTES % (AUTO) 8.7 % (1.0-10.0); NEUTROPHILS % (AUTO) 65.4 % (45.0-75.0); PLATELET COUNT 357 K/UL (150-450); RED BLOOD COUNT 4.48 M/UL (4.20-5.40); RED CELL DISTRIBUTION WIDTH 13.1 % (11.6-14.8); WHITE BLOOD COUNT 10.6 K/UL (4.8-10.8)
[2019-09-14] MEDS: HYDROcodone/Acetamin 5/325 tab ORAL PRN ×3 (06:08→21:16)
[2019-09-14 06:47] LABS: ALANINE AMINOTRANSFERASE 26 U/L (12-78); ALBUMIN 3.4 G/DL (3.4-5.0); ALBUMIN/GLOBULIN RATIO 0.9 (1.0-2.7); ALKALINE PHOSPHATASE 73 U/L (46-116); ANION GAP 12 mmol/L (5-15); ASPARTATE AMINO TRANSFERASE 14 U/L (15-37); BILIRUBIN,TOTAL 0.3 MG/DL (0.2-1.0); BLOOD UREA NITROGEN 5 mg/dL (7-18); CARBON DIOXIDE 26 MMOL/L (21-32); CHLORIDE 100 MMOL/L (98-107); CREATININE 0.7 MG/DL (0.55-1.30); POTASSIUM 3.7 MMOL/L (3.5-5.1); SODIUM 138 MMOL/L (136-145)
--- NOTE | 2019-09-14 07:10 | NUR ---
HAND-OFF: Report given to JILL Oneal.
--- NOTE | 2019-09-14 07:49 | NUR ---
NURSE NOTES: Patient awake, alert x3; on Nasal Cannula 4 Liters, no sing of shortness of breath and distress; no sing of chest pain; IV Right AC fluid running; Left foot cellulitis noted; side rials up x2, breaks engaged, bed at lowest position; call light within reach; patient encouraged to call for help; will keep monitoring.
[2019-09-14 08:00] VITALS: BP 134/59
[2019-09-14] MEDS: HydrALAZINE 50mg tab ORAL SCH ×3 (09:31→17:26)
[2019-09-14] MEDS: Oxybutynin 5mg tab ORAL SCH ×2 (09:32→17:27)
[2019-09-14] MEDS: Trihexyphenidyl 2mg tab ORAL SCH ×3 (09:32→17:26)
[2019-09-14] MEDS: clonazePAM 0.5mg tab ORAL SCH ×3 (09:32→17:26)
[2019-09-14] MEDS: Heparin 5000 units/ml inj SUBQ SCH ×2 (09:34→21:18)
--- NOTE | 2019-09-14 11:08 | NUR ---
SPRAY CREW NOTE SW met w/ pt to assess suicide, abuse and neglect. Pt presents as A&O4x and tearful. Pt reports she is frustrated with her current situation that she needs to schedule spine surgery w/ spine surgeon, Dr. Rico Linda and she is waiting for a bed to open at [facility], [facility]. Pt reports a hotel stay was arranged by Ms. Julien from [facility] (#[phone]) until the bed is open at the facility. Pt has two adult daughters. PT is not in contact w/ her eldest daughter. Pt's youngest daughter is currently in [facility]. Pt denies suicidal thought/abuse/neglect. Pt's main concern was the spine pain. Pt reports she will reach out the surgeon as soon as possible. NOHEMI provided brief emotional support. Addendum: 09/14/19 at 1322 by TORI SONG WRONG PT PLEASE DISREGARD THE NOTE
[2019-09-14 12:00] VITALS: BP 118/65
--- NOTE | 2019-09-14 12:32 | NUR ---
CASE MANAGEMENT:INITIAL REVIEW 59 YR OLD FEMALE NARCISA FROM [facility] CC;WOUND RECHECK. SUTURE REMOVAL. SI;RLE CELLULITIS. 98.5 88 24 100/48 93% 4L NC WBC 11.3 CRP 1.8 TIBIA/FIBULA X-RAY ~ NO ACUTE BONY TRAUMA BLOOD CULTURE ~ RESULT PENDING IS;VANCOMYCIN IV ADMITTED TO MED SURG MED SURG STATUS DCP;FROM [facility]
--- NOTE | 2019-09-14 13:24 | NUR ---
PLEASE DISREGARD NOTE [id number]
--- NOTE | 2019-09-14 13:40 | NUR ---
SERVICE ADMINISTRATOR NOTE -CORRECTED PT resides at [facility] [address] [place] [address]. Pt has two adult daughters. Emergency contact is Shante Euceda [phone]. Pt did not share any other psychosocial information to this SW. Pt reports she was cold. SW provided the blanket. Pt denies suicidal thought/abuse/neglect. Pt did not share any licensed master social worker concern/needs at this time. This SW does not believe pt is danger to self or abused/neglected.
--- NOTE | 2019-09-14 14:30 | NUR ---
NURSE NOTES:WOUND CARE NOTES:Pt Presented on admission with Ulcerations ,Edemae bilat lower ext. Pt is grossly unkempt. Proper hygiene rendered prior to assessing wounds. Multiple islands of ulcerations with erythematous bridges noted to rishabh,medial and lateral R tibia. Large ulcer with irregular shaped borders posterior R tibia.mixed slough and necrosis noted with marginal erythema along edges. Haemosiderin noted to RLE. Ulcer with 100% slough L tibia with surrounding Haemosiderin. Ulcer Lateral L tibia with 100% slough at base Both lower ext noted to be weepingnon-odorous serous exudate. Bilat rocker foot bottom deformities of feet.Toes aere clubbed both feet. Pt stated unable to walk recently secondary to pain in both feet. Pt educated of risks vs benefits to proper hygiene and inspecting feet daily. Advised to wear supportive shoes. Encouraged to elevate legs while in bed or sitting. Wounds cleansed with Saline. Xeroform gauze applied to wounds and both lower ext wrapped with Kerlix from base of toes to mid-calves. Recommendations: Cleanse both lower ext with Saline. Cover wounds with Xeroform Gauze . Apply ABD Pads and wrap both lower ext with kerlix from base of toes both feet Daily and prn.
[2019-09-14] MEDS: Vancomycin 1gm/D5W 275ml IVPB SCH ×4 (15:04→23:14)
[2019-09-14 16:00] VITALS: BP 120/74
--- NOTE | 2019-09-14 16:00 | Consultation ---
DATE OF CONSULTATION: 09/14/2019 INFECTIOUS DISEASE CONSULT ATTENDING PHYSICIAN: Jay Vasquez M.D. REASON FOR CONSULT: Right leg cellulitis. HISTORY OF PRESENT ILLNESS: This is a 59-year-old female admitted yesterday from a nursing facility because of right campbell swelling, erythema, pain for 3 days. Does not remember having any trauma, does not have a fever. PAST MEDICAL HISTORY: Diabetes mellitus type 2, COPD, obesity, history of goiter, hypertension, nicotine dependence. ALLERGIES: Metronidazole, sulfa drugs. MEDICATIONS: Vancomycin, lorazepam, Lexapro, Lasix, nifedipine, Januvia, clonazepam, gabapentin, hydralazine, hydrocodone plus Tylenol, Artane. SOCIAL HISTORY: , shelter resident, quit smoking, but does not remember the date of quitting cigarettes. Denies alcohol, drug abuse. REVIEW OF SYSTEMS: As per history of present illness. PHYSICAL EXAMINATION: VITAL SIGNS: Temperature is 98.1, pulse 89, blood pressure 134/59. GENERAL APPEARANCE: Seems morbidly obese, no distress. HEENT: [place] conjunctivae. HEART: Normal rate. LUNGS: Clear. ABDOMEN: Soft, obese. EXTREMITIES: Some edema of both legs. Has erythema more in the right leg, associated with some blisters that are draining pus. NEUROLOGIC: Awake, alert, oriented x3. LABORATORY AND DIAGNOSTIC DATA: Sodium 133, potassium 3.7, chloride 100, bicarbonate 26, BUN 5, creatinine 0.7, glucose is 117. WBC 10.6, coming down from 11.3 at the time of admission, hemoglobin 12.5, hematocrit 39.2, and platelets 357. IMPRESSION: Right lower extremity cellulitis that seems to be purulent. The patient has diabetes, morbid obesity, hypertension, history of nicotine dependence, psychiatric problem. RECOMMENDATIONS: Continue with IV vancomycin. We have ordered wound culture. We will follow up the culture. At the end of my exam, I thank Dr. Vasquez for involving me in the care of this patient. Pavel Britt M.D. DR: HUSEYIN JOB#: [id number] CC:
--- NOTE | 2019-09-14 16:29 | NUR ---
NURSE NOTES: I communicated MD Vasquez for wound care physician consult; waiting for order;
[2019-09-14] MEDS ORDERED: Milk of Magnesia 30ml Ud ORAL PRN (18:15)
[2019-09-14] MEDS ORDERED: Sennosides 8.6mg tab ORAL PRN (18:15)
[2019-09-14] MEDS: Docusate 100mg cap ORAL SCH (18:30)
[2019-09-14] MEDS: Bisacodyl EC 5mg tab ORAL SCH (18:30)
--- NOTE | 2019-09-14 19:22 | NUR ---
HAND-OFF: Report given to JILL Knight. Endorsed to the incoming nurse that patient is risk for fall; call light within reach; patient stable at this time;
[2019-09-14 20:00] VITALS: BP 123/69
--- NOTE | 2019-09-14 20:38 | Consultation ---
History of Present Illness General Date patient seen: Sep 14, 2019 Reason for Hospitalization: Wound Recheck/Suture Removal Present Illness HPI 59-year-old female history of hypertension, smoking presents with right campbell swelling, erythema x3 days no aggravating relieving factor she endorses achy pain severity is moderate, constant no fevers no chills patient presents from assisted living Allergies: Coded Allergies: METRONIDAZOLE (Unverified Allergy, Severe, 04/14/17) vomiting, rash SULFA (SULFONAMIDE ANTIBIOTICS) (Unverified Allergy, Severe, 07/24/17) RASH ALL OVER THE BODY, SWELLING SULFAMETHOXAZOLE (Unverified Allergy, Unknown, 11/25/17) TRIMETHOPRIM (Unverified Allergy, Unknown, 11/25/17) Uncoded Allergies: SULFANOMIDES (Allergy, Unknown, 09/13/19) COVID-19 Screening Contact w/high risk pt: No Experienced COVID-19 symptoms?: No Medication History Scheduled Albuterol Sulfate (Ventolin Hfa), 1 PUFF INH EVERY 6 HOURS, (Reported) Clonazepam (Clonazepam), 0.5 MG ORAL TID Desvenlafaxine (Desvenlafaxine Er), 150 MG ORAL DAILY, (Reported) Desvenlafaxine (Desvenlafaxine Er), 50 MG ORAL DAILY, (Reported) Estradiol (Estradiol), 1 MG PO DAILY, (Reported) Furosemide* (Lasix*), 20 MG ORAL DAILY, (Reported) Gabapentin (Neurontin), 300 MG ORAL BID Hydralazine Hcl* (Hydralazine Hcl*), 100 MG ORAL TID, (Reported) Nifedipine Er* (Nifedipine Er*), 90 MG ORAL DAILY, (Reported) Oxybutynin Chloride (Oxybutynin Chloride Er), 5 MG PO BID, (Reported) Rosuvastatin Calcium (Crestor), 5 MG ORAL BEDTIME, (Reported) Sitagliptin (Januvia), 100 MG ORAL DAILY Telmisartan (Micardis), 80 MG ORAL DAILY, (Reported) Trihexyphenidyl HCl (Trihexyphenidyl HCl), 2 MG ORAL TID Scheduled PRN Guaifenesin/Dextromethorphan* (Guaifenesin Dm Syrup*), 10 ML ORAL Q8H PRN Hydrocodone/Acetaminophen 5-325* (Hydrocodone/Acetaminophen 5-325*), 1 TAB ORAL Q6H PRN for For Pain, (Reported) Patient History History Provided By: Patient, Medical Record, PMD Healthcare decision maker Resuscitation status Advanced Directive on File Past Medical/Surgical History Past Medical/Surgical History: (1) Depression (2) Rash (3) Colonoscopy planned (4) Sleep apnea (5) Hyponatremia (6) Ulcerative colitis (7) Cellulitis (8) HTN (hypertension) (9) Thyroid disease (10) History of colon polyps (11) DMII (diabetes mellitus, type 2) Review of Systems Review of Symptoms General ROS: no weight loss or fever Psychological ROS: no depression or mood changes, no memory loss Ophthalmic ROS: no visual changes or eye irritation ENT ROS: no nasal congestion, hearing loss, dizziness Allergy and Immunology ROS: no allergic symptoms or urticaria Hematological and Lymphatic ROS: no swollen glands, unusual bleeding or bruising Endocrine ROS: no polyuria, polydipsia, weight changes, temperature intolerance Respiratory ROS: no cough, shortness of breath, or wheezing Cardiovascular ROS: no chest pain or dyspnea on exertion Gastrointestinal ROS: denies abdominal pain, bright red blood in stool. Musculoskeletal ROS: no myalgias or arthralgias Neurological ROS: no TIA or stroke symptoms Dermatological ROS: no new or changing skin lesions, rashes or pruritis Physical Exam Physical Exam General appearance: alert, cooperative, no distress, appears stated age Head: Normocephalic, without obvious abnormality, atraumatic Eyes: conjunctivae/corneas clear. PERRL, EOM's intact. Fundi benign Throat: Lips, mucosa, and tongue normal. Teeth and gums normal Neck: supple, symmetrical, trachea midline, no adenopathy, thyroid: not enlarged, symmetric, no tenderness/mass/nodules, no carotid bruit and no JVD Lungs: clear to auscultation bilaterally Heart: regular rate and rhythm, S1, S2 normal, no murmur, click, rub or gallop Abdomen: soft, non-tender. Bowel sounds normal. No masses, no organomegaly Extremities: extremities see below Pulses: 2+ and symmetric Skin: Skin color, texture, turgor normal. No rashes or lesions Neurologic: Grossly normal Last 24 Hour Vital Signs Date Time Temp Pulse Resp B/P (MAP) Pulse Ox O2 Delivery O2 Flow Rate FiO2 09/14/19 17:26 120/74 09/14/19 16:00 97.3 60 18 120/74 (89) 95 09/14/19 15:45 97.6 09/14/19 12:12 118/65 09/14/19 12:00 97.6 92 19 118/65 (82) 95 09/14/19 09:31 89 134/59 09/14/19 09:31 134/59 09/14/19 09:00 Nasal Cannula 3.0 09/14/19 08:00 98.1 89 19 134/59 (84) 93 09/14/19 04:00 97.0 84 22 137/68 (91) 97 09/14/19 00:00 98.6 97 22 106/59 (75) 95 09/13/19 21:00 Nasal Cannula 3.0 09/13/19 21:00 98.2 89 20 90/53 (65) 95 Intake and Output 09/13/19 09/14/19 19:00 07:00 Intake Total 100 ml 360 ml Balance 100 ml 360 ml Intake Oral 100 ml Other 360 ml # Voids 3 # Bowel Movements 2 1 Laboratory Tests Test 09/14/19 04:20 White Blood Count 10.6 K/UL (4.8-10.8) Red Blood Count 4.48 M/UL (4.20-5.40) Hemoglobin 12.5 G/DL (12.0-16.0) Hematocrit 39.2 % (37.0-47.0) Mean Corpuscular Volume 87 FL (80-99) Mean Corpuscular Hemoglobin 27.9 PG (27.0-31.0) Mean Corpuscular Hemoglobin Concent 31.9 G/DL (32.0-36.0) L Red Cell Distribution Width 13.1 % (11.6-14.8) Platelet Count 357 K/UL (150-450) Mean Platelet Volume 6.3 FL (6.5-10.1) L Neutrophils (%) (Auto) 65.4 % (45.0-75.0) Lymphocytes (%) (Auto) 23.1 % (20.0-45.0) Monocytes (%) (Auto) 8.7 % (1.0-10.0) Eosinophils (%) (Auto) 1.4 % (0.0-3.0) Basophils (%) (Auto) 1.4 % (0.0-2.0) Sodium Level 138 MMOL/L (136-145) Potassium Level 3.7 MMOL/L (3.5-5.1) Chloride Level 100 MMOL/L (98-107) Carbon Dioxide Level 26 MMOL/L (21-32) Anion Gap 12 mmol/L (5-15) Blood Urea Nitrogen 5 mg/dL (7-18) L Creatinine 0.7 MG/DL (0.55-1.30) Estimat Glomerular Filtration Rate > 60 mL/min (>60) Glucose Level 115 MG/DL (74-106) H Calcium Level 9.0 MG/DL (8.5-10.1) Total Bilirubin 0.3 MG/DL (0.2-1.0) Aspartate Amino Transf (AST/SGOT) 14 U/L (15-37) L Alanine Aminotransferase (ALT/SGPT) 26 U/L (12-78) Alkaline Phosphatase 73 U/L (46-116) Total Protein 7.1 G/DL (6.4-8.2) Albumin 3.4 G/DL (3.4-5.0) Globulin 3.7 g/dL Albumin/Globulin Ratio 0.9 (1.0-2.7) L Height (Feet): 5 Height (Inches): 6.00 Weight (Pounds): 268 Medications Current Medications Medications (Trade) Dose Ordered Sig/Bogdan Route PRN Reason Start Time Stop Time Status Last Admin Dose Admin Acetaminophen/ Hydrocodone Bitart (Firestone 5/325) 1 tab Q6H PRN ORAL For Pain 09/13/19 18:00 09/20/19 17:59 09/14/19 15:15 Bisacodyl (Dulcolax) 10 mg DAILY ORAL 09/14/19 18:30 12/13/19 18:29 09/14/19 18:30 Clonazepam (KlonoPIN) 0.5 mg TID ORAL 09/13/19 18:00 09/20/19 17:59 09/14/19 17:26 Docusate Sodium (Colace) 100 mg BID ORAL 09/14/19 18:30 10/14/19 18:29 09/14/19 18:30 Escitalopram Oxalate (Lexapro) 10 mg DAILY ORAL 09/14/19 11:45 10/14/19 11:44 09/14/19 12:03 Furosemide (Lasix) 20 mg DAILY ORAL 09/14/19 09:00 10/14/19 08:59 09/14/19 09:31 Gabapentin (Neurontin) 300 mg BID ORAL 09/13/19 18:00 10/13/19 17:59 09/14/19 17:26 Guaifenesin/ Dextromethorphan (Robitussin DM Syrup) 10 ml Q8H PRN ORAL For Cough 09/13/19 18:00 12/12/19 17:59 Heparin Sodium (Porcine) (Heparin 5000 units/ml) 5,000 units EVERY 12 HOURS SUBQ 09/13/19 21:00 10/28/19 20:59 09/14/19 09:34 Hydralazine HCl (Apresoline) 100 mg TID ORAL 09/13/19 18:00 12/12/19 17:59 09/14/19 17:26 Lorazepam (Ativan) 1 mg Q6H PRN ORAL ANXIETY 09/14/19 12:00 09/21/19 11:59 Magnesium Hydroxide (Mom) 30 ml Q4H PRN ORAL Constipation 09/14/19 18:15 10/14/19 18:14 Nifedipine (Procardia XL) 90 mg DAILY ORAL 09/14/19 09:00 10/14/19 08:59 09/14/19 09:31 Oxybutynin Chloride (Ditropan) 5 mg BID ORAL 09/13/19 18:00 10/13/19 17:59 09/14/19 17:27 Sennosides (Senokot) 8.6 mg DAILYPRN PRN ORAL Constipation 09/14/19 18:15 10/14/19 18:14 Sitagliptin Phosphate (Januvia) 100 mg DAILY ORAL 09/14/19 09:00 10/14/19 08:59 09/14/19 09:32 Trihexyphenidyl HCl (Artane) 2 mg THREE TIMES A DAY ORAL 09/13/19 18:00 10/13/19 17:59 09/14/19 17:26 Vancomycin HCl (Vanco pharmacy to dose) 1 ea DAILY PRN MISC Per rx protocol 09/14/19 12:30 10/14/19 12:29 Vancomycin HCl 1 gm/Dextrose 275 ml @ 183.708 mls/hr Q8HR IVPB 09/14/19 13:30 09/19/19 13:29 09/14/19 15:04 Assessment/Plan Problem List: (1) Ulcerative colitis ICD Codes: K51.90 - Ulcerative colitis, unspecified, without complications SNOMED: 94601287 (2) Cellulitis Assessment & Plan: Pt Presented on admission with Ulcerations ,Edemae bilat lower ext. Pt is grossly unkempt. Proper hygiene rendered prior to assessing wounds. Multiple islands of ulcerations with erythematous bridges noted to rishabh,medial and lateral R tibia. Large ulcer with irregular shaped borders posterior R tibia.mixed slough and necrosis noted with marginal erythema along edges. Haemosiderin noted to RLE. Ulcer with 100% slough L tibia with surrounding Haemosiderin. Ulcer Lateral L tibia with 100% slough at base Both lower ext noted to be weepingnon-odorous serous exudate. Bilat rocker foot bottom deformities of feet.Toes aere clubbed both feet. Pt stated unable to walk recently secondary to pain in both feet. Pt educated of risks vs benefits to proper hygiene and inspecting feet daily. Advised to wear supportive shoes. Encouraged to elevate legs while in bed or sitting. Wounds cleansed with Saline. Xeroform gauze applied to wounds and both lower ext wrapped with Kerlix from base of toes to mid-calves. Recommendations: Cleanse both lower ext with Saline. Cover wounds with Xeroform Gauze . Apply ABD Pads and wrap both lower ext with kerlix from base of toes both feet Daily and prn. ICD Codes: L03.90 - Cellulitis, unspecified SNOMED: 081394361 Qualifiers: Qualified Codes: L03.115 - Cellulitis of right lower limb (3) HTN (hypertension) ICD Codes: I10 - Essential (primary) hypertension SNOMED: 27508247 (4) Thyroid disease ICD Codes: E07.9 - Disorder of thyroid, unspecified SNOMED: 75469893 (5) History of colon polyps ICD Codes: Z86.010 - Personal history of colonic polyps SNOMED: 997662863 (6) DMII (diabetes mellitus, type 2) ICD Codes: E11.9 - Type 2 diabetes mellitus without complications SNOMED: 30530909 (7) Depression ICD Codes: F32.9 - Major depressive disorder, single episode, unspecified SNOMED: 16614431 (8) Rash ICD Codes: R21 - Rash and other nonspecific skin eruption SNOMED: 140707955 (9) Hyponatremia ICD Codes: E87.1 - Hypo-osmolality and hyponatremia SNOMED: 53522877 (10) Sleep apnea ICD Codes: G47.30 - Sleep apnea, unspecified SNOMED: 53491422 (11) Colonoscopy planned SNOMED: 741041922 Ethan Lee Sep 14, 2019 20:38
--- NOTE | 2019-09-14 22:05 | General Progress Note ---
Assessment/Plan Problem List: (1) DMII (diabetes mellitus, type 2) ICD Codes: E11.9 - Type 2 diabetes mellitus without complications SNOMED: 00796226 (2) HTN (hypertension) ICD Codes: I10 - Essential (primary) hypertension SNOMED: 63353833 (3) Thyroid disease ICD Codes: E07.9 - Disorder of thyroid, unspecified SNOMED: 71331932 (4) History of colon polyps ICD Codes: Z86.010 - Personal history of colonic polyps SNOMED: 672687714 (5) Ulcerative colitis ICD Codes: K51.90 - Ulcerative colitis, unspecified, without complications SNOMED: 66812316 (6) Cellulitis ICD Codes: L03.90 - Cellulitis, unspecified SNOMED: 555029957 Qualifiers: Qualified Codes: L03.115 - Cellulitis of right lower limb Status: progressing Assessment/Plan: cellulitis of leg iv abx per id afebirle obesity dm reviewed chart and labs Subjective ROS Limited/Unobtainable: Yes Allergies: Coded Allergies: METRONIDAZOLE (Unverified Allergy, Severe, 04/14/17) vomiting, rash SULFA (SULFONAMIDE ANTIBIOTICS) (Unverified Allergy, Severe, 07/24/17) RASH ALL OVER THE BODY, SWELLING SULFAMETHOXAZOLE (Unverified Allergy, Unknown, 11/25/17) TRIMETHOPRIM (Unverified Allergy, Unknown, 11/25/17) Uncoded Allergies: SULFANOMIDES (Allergy, Unknown, 09/13/19) Objective Last 24 Hour Vital Signs Date Time Temp Pulse Resp B/P (MAP) Pulse Ox O2 Delivery O2 Flow Rate FiO2 09/14/19 17:26 120/74 09/14/19 16:00 97.3 60 18 120/74 (89) 95 09/14/19 15:45 97.6 09/14/19 12:12 118/65 09/14/19 12:00 97.6 92 19 118/65 (82) 95 09/14/19 09:31 89 134/59 09/14/19 09:31 134/59 09/14/19 09:00 Nasal Cannula 3.0 09/14/19 08:00 98.1 89 19 134/59 (84) 93 09/14/19 04:00 97.0 84 22 137/68 (91) 97 09/14/19 00:00 98.6 97 22 106/59 (75) 95 Intake and Output 09/13/19 09/14/19 19:00 07:00 Intake Total 100 ml 360 ml Balance 100 ml 360 ml Intake Oral 100 ml Other 360 ml # Voids 3 # Bowel Movements 2 1 Laboratory Tests 09/14/19 04:20: White Blood Count 10.6, Red Blood Count 4.48, Hemoglobin 12.5, Hematocrit 39.2, Mean Corpuscular Volume 87, Mean Corpuscular Hemoglobin 27.9, Mean Corpuscular Hemoglobin Concent 31.9L, Red Cell Distribution Width 13.1, Platelet Count 357, Mean Platelet Volume 6.3L, Neutrophils (%) (Auto) 65.4, Lymphocytes (%) (Auto) 23.1, Monocytes (%) (Auto) 8.7, Eosinophils (%) (Auto) 1.4, Basophils (%) (Auto ) 1.4, Sodium Level 138, Potassium Level 3.7, Chloride Level 100, Carbon Dioxide Level 26, Anion Gap 12, Blood Urea Nitrogen 5L, Creatinine 0.7, Estimat Glomerular Filtration Rate > 60, Glucose Level 115H, Calcium Level 9.0, Total Bilirubin 0.3, Aspartate Amino Transf (AST/SGOT) 14L, Alanine Aminotransferase ( ALT/SGPT) 26, Alkaline Phosphatase 73, Total Protein 7.1, Albumin 3.4, Globulin 3.7, Albumin/Globulin Ratio 0.9L Height (Feet): 5 Height (Inches): 6.00 Weight (Pounds): 268 Jay Vasquez MD Sep 14, 2019 22:05
--- NOTE | 2019-09-14 23:35 | Initial Psychiatric Evaluation ---
Psychiatry Consultation Psychiatry Consultation Chief Complaint: Wound Recheck/Suture Removal History of Present Illness: 59-year-old female history of hypertension, smoking presents with right campbell swelling, erythema x3 days. the pt is irritable and angry forgetful poor insight the pt has not si/hi the pt is easily agitated. Allergies: Coded Allergies: METRONIDAZOLE (Unverified Allergy, Severe, 04/14/17) vomiting, rash SULFA (SULFONAMIDE ANTIBIOTICS) (Unverified Allergy, Severe, 07/24/17) RASH ALL OVER THE BODY, SWELLING SULFAMETHOXAZOLE (Unverified Allergy, Unknown, 11/25/17) TRIMETHOPRIM (Unverified Allergy, Unknown, 11/25/17) Uncoded Allergies: SULFANOMIDES (Allergy, Unknown, 09/13/19) Past Psychiatric History: mdd anxiety no si/hi Medication History Scheduled Albuterol Sulfate (Ventolin Hfa), 1 PUFF INH EVERY 6 HOURS, (Reported) Clonazepam (Clonazepam), 0.5 MG ORAL TID Desvenlafaxine (Desvenlafaxine Er), 150 MG ORAL DAILY, (Reported) Desvenlafaxine (Desvenlafaxine Er), 50 MG ORAL DAILY, (Reported) Estradiol (Estradiol), 1 MG PO DAILY, (Reported) Furosemide* (Lasix*), 20 MG ORAL DAILY, (Reported) Gabapentin (Neurontin), 300 MG ORAL BID Hydralazine Hcl* (Hydralazine Hcl*), 100 MG ORAL TID, (Reported) Nifedipine Er* (Nifedipine Er*), 90 MG ORAL DAILY, (Reported) Oxybutynin Chloride (Oxybutynin Chloride Er), 5 MG PO BID, (Reported) Rosuvastatin Calcium (Crestor), 5 MG ORAL BEDTIME, (Reported) Sitagliptin (Januvia), 100 MG ORAL DAILY Telmisartan (Micardis), 80 MG ORAL DAILY, (Reported) Trihexyphenidyl HCl (Trihexyphenidyl HCl), 2 MG ORAL TID Scheduled PRN Guaifenesin/Dextromethorphan* (Guaifenesin Dm Syrup*), 10 ML ORAL Q8H PRN Hydrocodone/Acetaminophen 5-325* (Hydrocodone/Acetaminophen 5-325*), 1 TAB ORAL Q6H PRN for For Pain, (Reported) Patient History History Provided By: Patient, Medical Record, PMD Objective Data Height (Feet): 5 Height (Inches): 6.00 Weight (Pounds): 268 Appearance: disheveled Behavior Mannerisms: good eye contact Affect: constricted Mood: depressed, irritable Speech: clear Thought Process: no abnormalities Suicidal Ideation: not present Assessment/Plan Problem List: (1) Depression Assessment & Plan: anxiety do lexapro 10mg po qam klonopin provided ro/st ICD Codes: F32.9 - Major depressive disorder, single episode, unspecified SNOMED: 55596870 Dion Meza MD Sep 14, 2019 23:35
[2019-09-15] VITALS: BP 129/66
[2019-09-15 04:00] VITALS: BP 142/63
[2019-09-15] MEDS: Vancomycin 1gm/D5W 275ml IVPB SCH ×2 (05:55)
[2019-09-15] MEDS: LORazepam 1mg tab ORAL PRN (05:55)
--- NOTE | 2019-09-15 07:15 | NUR ---
HAND-OFF: Report given to Kimmy MELCHOR.
--- NOTE | 2019-09-15 07:37 | NUR ---
NURSE NOTES: Patient awake, alert x3, forgetful; on Nasal cannula at 3 Liters, no sing of shortness of breath, no sing of distress; no sing of chest pain; IV Right-Hand flushes well; side rails up x2, breaks engaged, bed at lowest position; bed side Commode within reach; call light within reach; will keep monitoring.
[2019-09-15 08:00] VITALS: BP 123/81
[2019-09-15] MEDS: Oxybutynin 5mg tab ORAL SCH ×2 (08:31→17:03)
[2019-09-15] MEDS: Trihexyphenidyl 2mg tab ORAL SCH ×3 (08:31→17:02)
[2019-09-15] MEDS: clonazePAM 0.5mg tab ORAL SCH ×3 (08:31→17:03)
[2019-09-15] MEDS: Docusate 100mg cap ORAL SCH ×2 (08:32→17:02)
[2019-09-15] MEDS: Heparin 5000 units/ml inj SUBQ SCH ×2 (08:32→20:57)
[2019-09-15] MEDS: HydrALAZINE 50mg tab ORAL SCH ×3 (08:32→17:03)
[2019-09-15] MEDS: Bisacodyl EC 5mg tab ORAL SCH (08:33)
[2019-09-15] MEDS: HYDROcodone/Acetamin 5/325 tab ORAL PRN ×3 (09:29→22:36)
--- NOTE | 2019-09-15 10:39 | Infectious Diseases Prog Note ---
Assessment/Plan Assessment/Plan IMPRESSION: Right lower extremity cellulitis/ purulent. Diabetes, Morbid obesity, Hypertension, History of nicotine dependence, psychiatric problem. Urinary incontinence RECOMMENDATIONS: Continue with IV vancomycin. We will follow up the cultures. Subjective ROS Limited/Unobtainable: No Constitutional: Reports: no symptoms Respiratory: Reports: no symptoms Gastrointestinal/Abdominal: Reports: no symptoms Genitourinary: Reports: other - incontinent Musculoskeletal: Reports: other - difficulty of walking, use bedside commode Allergies: Coded Allergies: METRONIDAZOLE (Unverified Allergy, Severe, 04/14/17) vomiting, rash SULFA (SULFONAMIDE ANTIBIOTICS) (Unverified Allergy, Severe, 07/24/17) RASH ALL OVER THE BODY, SWELLING SULFAMETHOXAZOLE (Unverified Allergy, Unknown, 11/25/17) TRIMETHOPRIM (Unverified Allergy, Unknown, 11/25/17) Uncoded Allergies: SULFANOMIDES (Allergy, Unknown, 09/13/19) Objective Last 24 Hour Vital Signs Date Time Temp Pulse Resp B/P (MAP) Pulse Ox O2 Delivery O2 Flow Rate FiO2 09/15/19 09:59 97.2 09/15/19 09:00 Nasal Cannula 3.0 09/15/19 08:32 123/81 09/15/19 08:31 82 123/81 09/15/19 08:00 97.2 82 20 123/81 (95) 98 09/15/19 04:00 96.6 81 20 142/63 (89) 93 09/15/19 00:00 98.1 95 22 129/66 (87) 96 09/14/19 21:00 Nasal Cannula 3.0 09/14/19 20:00 98.2 89 20 123/69 (87) 100 09/14/19 17:26 120/74 09/14/19 16:00 97.3 60 18 120/74 (89) 95 09/14/19 12:12 118/65 09/14/19 12:00 97.6 92 19 118/65 (82) 95 Height (Feet): 5 Height (Inches): 6.00 Weight (Pounds): 268 General Appearance: no acute distress HEENT: mucous membranes moist Respiratory/Chest: lungs clear Cardiovascular: normal rate Abdomen: soft, non tender Extremities: other - edema of legs Skin: ulcers, other - more in right lrg Neurologic/Psychiatric: alert, oriented x 3, responsive Microbiology Date/Time Source Procedure Growth Status 09/13/19 11:40 Blood Blood Culture - Preliminary NO GROWTH AFTER 24 HOURS Resulted 09/13/19 11:40 Blood Blood Culture - Preliminary NO GROWTH AFTER 24 HOURS Resulted 09/13/19 13:14 Rectum Received Current Medications Medications (Trade) Dose Ordered Sig/Obgdan Route PRN Reason Start Time Stop Time Status Last Admin Dose Admin Acetaminophen/ Hydrocodone Bitart ([place] 5/325) 1 tab Q6H PRN ORAL For Pain 09/13/19 18:00 09/20/19 17:59 09/15/19 09:29 Bisacodyl (Dulcolax) 10 mg DAILY ORAL 09/14/19 18:30 12/13/19 18:29 09/15/19 08:33 Clonazepam (KlonoPIN) 0.5 mg TID ORAL 09/13/19 18:00 09/20/19 17:59 09/15/19 08:31 Docusate Sodium (Colace) 100 mg BID ORAL 09/14/19 18:30 10/14/19 18:29 09/15/19 08:32 Escitalopram Oxalate (Lexapro) 10 mg DAILY ORAL 09/14/19 11:45 10/14/19 11:44 09/15/19 08:32 Furosemide (Lasix) 20 mg DAILY ORAL 09/14/19 09:00 10/14/19 08:59 09/15/19 08:32 Gabapentin (Neurontin) 300 mg BID ORAL 09/13/19 18:00 10/13/19 17:59 09/15/19 08:32 Guaifenesin/ Dextromethorphan (Robitussin DM Syrup) 10 ml Q8H PRN ORAL For Cough 09/13/19 18:00 12/12/19 17:59 Heparin Sodium (Porcine) (Heparin 5000 units/ml) 5,000 units EVERY 12 HOURS SUBQ 09/13/19 21:00 10/28/19 20:59 09/15/19 08:32 Hydralazine HCl (Apresoline) 100 mg TID ORAL 09/13/19 18:00 12/12/19 17:59 09/15/19 08:32 Lorazepam (Ativan) 1 mg Q6H PRN ORAL ANXIETY 09/14/19 12:00 09/21/19 11:59 09/15/19 05:55 Magnesium Hydroxide (Mom) 30 ml Q4H PRN ORAL Constipation 09/14/19 18:15 10/14/19 18:14 Nifedipine (Procardia XL) 90 mg DAILY ORAL 09/14/19 09:00 10/14/19 08:59 09/15/19 08:31 Oxybutynin Chloride (Ditropan) 5 mg BID ORAL 09/13/19 18:00 10/13/19 17:59 09/15/19 08:31 Sennosides (Senokot) 8.6 mg DAILYPRN PRN ORAL Constipation 09/14/19 18:15 10/14/19 18:14 Sitagliptin Phosphate (Januvia) 100 mg DAILY ORAL 09/14/19 09:00 10/14/19 08:59 09/15/19 08:31 Trihexyphenidyl HCl (Artane) 2 mg THREE TIMES A DAY ORAL 09/13/19 18:00 10/13/19 17:59 09/15/19 08:31 Vancomycin HCl (Vanco pharmacy to dose) 1 ea DAILY PRN MISC Per rx protocol 09/14/19 12:30 10/14/19 12:29 Vancomycin HCl 1 gm/Dextrose 275 ml @ 183.708 mls/hr Q8HR IVPB 09/14/19 13:30 09/19/19 13:29 09/15/19 05:55 Pavel Britt MD Sep 15, 2019 10:39
[2019-09-15 12:00] VITALS: BP 142/66
[2019-09-15 16:00] VITALS: BP 136/69
[2019-09-15] MEDS: Vancomycin 1.25gm/NS Premix q24h IVPB SCH (17:02)
--- NOTE | 2019-09-15 18:41 | NUR ---
NURSE NOTES: Bilateral lower extremities dressing changed; patient tolerated well;
--- NOTE | 2019-09-15 19:31 | NUR ---
NURSE NOTES: RECEIVED PATIENT FROM JILL ADLER. PATIENT IS AWAKE, AAOX4, ON ROOM AIR, NO ACUTE DISTRESS NOTED. VSS. PATIENT DENIES SOB, AND PAIN AT THE MOMENT. COMMODE AT BEDSIDE. REINFORCED TEACHING WEATHER STRIP MECHANIC LIGHT FOR ASSISTANCE WHEN USING THE COMMODE, PATIENT VERBALIZED UNDERSTANDING. DRESSINGS ON BILATERAL LEGS, DRY AND INTACT. PIV ON RIGHT HAND INTACT AND PATENT. BED IS LOCKED AND LOW, BED ALARMS ACTIVE, SIDE RAILS UPX2 AND CALL LIGHT IS WITHIN REACH, WILL CONTINUE TO MONITOR.
--- NOTE | 2019-09-15 19:36 | NUR ---
HAND-OFF: Report given to JILL Moore.
[2019-09-15 20:00] VITALS: BP 117/50
--- NOTE | 2019-09-15 21:34 | General Progress Note ---
Assessment/Plan Problem List: (1) DMII (diabetes mellitus, type 2) ICD Codes: E11.9 - Type 2 diabetes mellitus without complications SNOMED: 02376519 (2) HTN (hypertension) ICD Codes: I10 - Essential (primary) hypertension SNOMED: 80378947 (3) Thyroid disease ICD Codes: E07.9 - Disorder of thyroid, unspecified SNOMED: 80055597 (4) History of colon polyps ICD Codes: Z86.010 - Personal history of colonic polyps SNOMED: 908498075 (5) Ulcerative colitis ICD Codes: K51.90 - Ulcerative colitis, unspecified, without complications SNOMED: 14241291 (6) Cellulitis ICD Codes: L03.90 - Cellulitis, unspecified SNOMED: 306705786 Qualifiers: Qualified Codes: L03.115 - Cellulitis of right lower limb Status: progressing Assessment/Plan: cellulitis of leg iv abx per id in pain htn continue abx obesity dm Subjective ROS Limited/Unobtainable: Yes Allergies: Coded Allergies: METRONIDAZOLE (Unverified Allergy, Severe, 04/14/17) vomiting, rash SULFA (SULFONAMIDE ANTIBIOTICS) (Unverified Allergy, Severe, 07/24/17) RASH ALL OVER THE BODY, SWELLING SULFAMETHOXAZOLE (Unverified Allergy, Unknown, 11/25/17) TRIMETHOPRIM (Unverified Allergy, Unknown, 11/25/17) Uncoded Allergies: SULFANOMIDES (Allergy, Unknown, 09/13/19) Objective Last 24 Hour Vital Signs Date Time Temp Pulse Resp B/P (MAP) Pulse Ox O2 Delivery O2 Flow Rate FiO2 09/15/19 17:03 136/69 09/15/19 16:28 97.7 09/15/19 16:00 97.7 87 20 136/69 (91) 95 09/15/19 12:17 142/66 09/15/19 12:00 97.9 79 20 142/66 (91) 95 09/15/19 09:00 Nasal Cannula 3.0 09/15/19 08:32 123/81 09/15/19 08:31 82 123/81 09/15/19 08:00 97.2 82 20 123/81 (95) 98 09/15/19 04:00 96.6 81 20 142/63 (89) 93 09/15/19 00:00 98.1 95 22 129/66 (87) 96 Intake and Output 09/14/19 09/15/19 19:00 07:00 Intake Total 867.416 ml 600 ml Output Total 3000 ml Balance -2132.584 ml 600 ml IV Total 367.416 ml Other 500 ml 600 ml Output Urine Total 3000 ml # Voids 5 4 # Bowel Movements 1 1 Laboratory Tests 09/15/19 14:30: Vancomycin Level Trough 8.2 Height (Feet): 5 Height (Inches): 6.00 Weight (Pounds): 268 Jay Vasquez MD Sep 15, 2019 21:34
--- NOTE | 2019-09-15 23:58 | Psych Consult Progress Note ---
Psychiatry Progress Note Psychiatry Progress Note Subjective the pt is doing well no behavioral issues Medications Current Medications Medications (Trade) Dose Ordered Sig/Bogdan Route PRN Reason Start Time Stop Time Status Last Admin Dose Admin Acetaminophen/ Hydrocodone Bitart ([place] 5/325) 1 tab Q6H PRN ORAL For Pain 09/13/19 18:00 09/20/19 17:59 09/15/19 22:36 Bisacodyl (Dulcolax) 10 mg DAILY ORAL 09/14/19 18:30 12/13/19 18:29 09/15/19 08:33 Clonazepam (KlonoPIN) 0.5 mg TID ORAL 09/13/19 18:00 09/20/19 17:59 09/15/19 17:03 Docusate Sodium (Colace) 100 mg BID ORAL 09/14/19 18:30 10/14/19 18:29 09/15/19 17:02 Escitalopram Oxalate (Lexapro) 10 mg DAILY ORAL 09/14/19 11:45 10/14/19 11:44 09/15/19 08:32 Furosemide (Lasix) 20 mg DAILY ORAL 09/14/19 09:00 10/14/19 08:59 09/15/19 08:32 Gabapentin (Neurontin) 300 mg BID ORAL 09/13/19 18:00 10/13/19 17:59 09/15/19 17:02 Guaifenesin/ Dextromethorphan (Robitussin DM Syrup) 10 ml Q8H PRN ORAL For Cough 09/13/19 18:00 12/12/19 17:59 Heparin Sodium (Porcine) (Heparin 5000 units/ml) 5,000 units EVERY 12 HOURS SUBQ 09/13/19 21:00 10/28/19 20:59 09/15/19 20:57 Hydralazine HCl (Apresoline) 100 mg TID ORAL 09/13/19 18:00 12/12/19 17:59 09/15/19 17:03 Lorazepam (Ativan) 1 mg Q6H PRN ORAL ANXIETY 09/14/19 12:00 09/21/19 11:59 09/15/19 05:55 Magnesium Hydroxide (Mom) 30 ml Q4H PRN ORAL Constipation 09/14/19 18:15 10/14/19 18:14 Nifedipine (Procardia XL) 90 mg DAILY ORAL 09/14/19 09:00 10/14/19 08:59 09/15/19 08:31 Oxybutynin Chloride (Ditropan) 5 mg BID ORAL 09/13/19 18:00 10/13/19 17:59 09/15/19 08:31 Sennosides (Senokot) 8.6 mg DAILYPRN PRN ORAL Constipation 09/14/19 18:15 10/14/19 18:14 Sitagliptin Phosphate (Januvia) 100 mg DAILY ORAL 09/14/19 09:00 10/14/19 08:59 09/15/19 08:31 Trihexyphenidyl HCl (Artane) 2 mg THREE TIMES A DAY ORAL 09/13/19 18:00 10/13/19 17:59 09/15/19 17:02 Vancomycin HCl (Vanco pharmacy to dose) 1 ea DAILY PRN MISC Per rx protocol 09/14/19 12:30 10/14/19 12:29 Vancomycin/Sodium Chloride 275 ml @ 183.333 mls/hr Q8H IVPB 09/15/19 17:00 09/20/19 16:59 09/15/19 17:02 Neurological/Psychiatric: Reports: anxiety, depressed, emotional problems Allergies: Coded Allergies: METRONIDAZOLE (Unverified Allergy, Severe, 04/14/17) vomiting, rash SULFA (SULFONAMIDE ANTIBIOTICS) (Unverified Allergy, Severe, 07/24/17) RASH ALL OVER THE BODY, SWELLING SULFAMETHOXAZOLE (Unverified Allergy, Unknown, 11/25/17) TRIMETHOPRIM (Unverified Allergy, Unknown, 11/25/17) Uncoded Allergies: SULFANOMIDES (Allergy, Unknown, 09/13/19) Objective Data Height (Feet): 5 Height (Inches): 6.00 Weight (Pounds): 268 Additional Comments: Appearance: disheveled Behavior Mannerisms: good eye contact Affect: constricted Mood: depressed, irritable Speech: clear Thought Process: no abnormalities Suicidal Ideation: not present Assessment/Plan Assessment/Plan Problem List: (1) Depression Assessment & Plan: anxiety do lexapro 10mg po qam klonopin provided ro/st ICD Codes: F32.9 - Major depressive disorder, single episode, unspecified SNOMED: [id number] Assessment/Plan Status: progressing Dion Meza MD Sep 15, 2019 23:58
[2019-09-16] VITALS: BP 145/74
[2019-09-16] MEDS: Vancomycin 1.25gm/NS Premix q24h IVPB SCH ×2 (01:39→09:09)
[2019-09-16 04:00] VITALS: BP 142/76
[2019-09-16] MEDS: HYDROcodone/Acetamin 5/325 tab ORAL PRN ×3 (05:43→20:06)
[2019-09-16 05:58] LABS: BASOPHILS % (AUTO) 1.9 % (0.0-2.0); EOSINOPHILS % (AUTO) 2.5 % (0.0-3.0); HEMATOCRIT 39.8 % (37.0-47.0); HEMOGLOBIN 12.8 G/DL (12.0-16.0); LYMPHOCYTES % (AUTO) 30.5 % (20.0-45.0); MEAN CORPUSCULAR VOLUME 87 FL (80-99); MONOCYTES % (AUTO) 6.1 % (1.0-10.0); NEUTROPHILS % (AUTO) 59.1 % (45.0-75.0); PLATELET COUNT 317 K/UL (150-450); RED BLOOD COUNT 4.56 M/UL (4.20-5.40); RED CELL DISTRIBUTION WIDTH 13.2 % (11.6-14.8); WHITE BLOOD COUNT 8.2 K/UL (4.8-10.8)
[2019-09-16 06:35] LABS: ALANINE AMINOTRANSFERASE 21 U/L (12-78); ALBUMIN 3.5 G/DL (3.4-5.0); ALBUMIN/GLOBULIN RATIO 0.9 (1.0-2.7); ALKALINE PHOSPHATASE 70 U/L (46-116); ANION GAP 10 mmol/L (5-15); ASPARTATE AMINO TRANSFERASE 17 U/L (15-37); BILIRUBIN,TOTAL 0.3 MG/DL (0.2-1.0); BLOOD UREA NITROGEN 5 mg/dL (7-18); CALCIUM 8.9 MG/DL (8.5-10.1); CARBON DIOXIDE 25 MMOL/L (21-32); CHLORIDE 103 MMOL/L (98-107); CREATININE 0.7 MG/DL (0.55-1.30); POTASSIUM 3.8 MMOL/L (3.5-5.1); SODIUM 138 MMOL/L (136-145)
--- NOTE | 2019-09-16 07:35 | NUR ---
NURSE NOTES: Received patient in bed. Awake, A/O x3. On room air, respirations unlabored. Patient denies pain at this time. IV in the Right Hand, site intact. Patient is a high fall risk d/t Sin fall scale of 55. Patient placed close to the nurses station for safety, yellow socks on, yellow gown on, bed alarm placed on high sensitivity. Patient oriented to room, surroundings and call light with return demonstration. CN and GEOTECHNICIAL PROPERTIES TECHNICIAN made aware.
--- NOTE | 2019-09-16 07:42 | NUR ---
HAND-OFF: Report given to JILL Bernard.
[2019-09-16 08:00] VITALS: BP 130/61
[2019-09-16] MEDS: Docusate 100mg cap ORAL SCH ×2 (08:55→17:28)
[2019-09-16] MEDS: Trihexyphenidyl 2mg tab ORAL SCH ×3 (08:55→17:27)
[2019-09-16] MEDS: Bisacodyl EC 5mg tab ORAL SCH (08:55)
[2019-09-16] MEDS: HydrALAZINE 50mg tab ORAL SCH ×3 (08:55→17:27)
[2019-09-16] MEDS: Oxybutynin 5mg tab ORAL SCH ×2 (08:56→17:28)
[2019-09-16] MEDS: clonazePAM 0.5mg tab ORAL SCH ×3 (08:56→17:28)
[2019-09-16] MEDS: Heparin 5000 units/ml inj SUBQ SCH ×2 (09:07→20:06)
--- NOTE | 2019-09-16 11:29 | Infectious Diseases Prog Note ---
Assessment/Plan Assessment/Plan IMPRESSION: Right lower extremity cellulitis Srep group G in culture Diabetes, Morbid obesity, Hypertension, History of nicotine dependence, Depression Urinary incontinence RECOMMENDATIONS: Discontinue IV vancomycin. Start on PO Amoxicillin Subjective ROS Limited/Unobtainable: No Respiratory: Reports: no symptoms Cardiovascular: Reports: no symptoms Gastrointestinal/Abdominal: Reports: no symptoms Musculoskeletal: Reports: pain, other - in legs Allergies: Coded Allergies: METRONIDAZOLE (Unverified Allergy, Severe, 04/14/17) vomiting, rash SULFA (SULFONAMIDE ANTIBIOTICS) (Unverified Allergy, Severe, 07/24/17) RASH ALL OVER THE BODY, SWELLING SULFAMETHOXAZOLE (Unverified Allergy, Unknown, 11/25/17) TRIMETHOPRIM (Unverified Allergy, Unknown, 11/25/17) Uncoded Allergies: SULFANOMIDES (Allergy, Unknown, 09/13/19) Objective Last 24 Hour Vital Signs Date Time Temp Pulse Resp B/P (MAP) Pulse Ox O2 Delivery O2 Flow Rate FiO2 09/16/19 09:00 Room Air 09/16/19 08:55 79 130/61 09/16/19 08:55 130/61 09/16/19 08:00 97.7 79 20 130/61 (84) 96 09/16/19 04:00 96.8 84 20 142/76 (98) 93 09/16/19 00:00 97.7 87 24 145/74 (97) 93 09/15/19 21:00 Room Air 09/15/19 20:00 97.7 90 22 117/50 (72) 97 09/15/19 17:03 136/69 09/15/19 16:28 97.7 09/15/19 16:00 97.7 87 20 136/69 (91) 95 09/15/19 12:17 142/66 09/15/19 12:00 97.9 79 20 142/66 (91) 95 Height (Feet): 5 Height (Inches): 6.00 Weight (Pounds): 268 General Appearance: no acute distress HEENT: mucous membranes moist Respiratory/Chest: lungs clear Cardiovascular: normal rate Abdomen: soft, non tender Extremities: other - legs edema Skin: ulcers, other - R campbell Microbiology Date/Time Source Procedure Growth Status 09/13/19 11:40 Blood Blood Culture - Preliminary NO GROWTH AFTER 48 HOURS Resulted 09/13/19 11:40 Blood Blood Culture - Preliminary NO GROWTH AFTER 48 HOURS Resulted 09/13/19 13:14 Nasal Nares MRSA Culture - Final NO METHICILLIN RESISTANT STAPH AUREUS... Complete 09/14/19 12:30 Leg Right Gram Stain - Final Complete 09/14/19 12:30 Wound Culture - Final Streptococcus Group G Complete 09/13/19 13:14 Rectum - Final NO CARBAPENEM-RESISTANT ENTEROBACTERI... Complete 09/13/19 13:14 Rectum VRE Culture - Final NO VANCOMYCIN RESISTANT ENTEROCOCCUS ... Complete Laboratory Tests Test 09/15/19 14:30 09/16/19 05:31 Vancomycin Level Trough 8.2 ug/mL (5.0-12.0) White Blood Count 8.2 K/UL (4.8-10.8) Red Blood Count 4.56 M/UL (4.20-5.40) Hemoglobin 12.8 G/DL (12.0-16.0) Hematocrit 39.8 % (37.0-47.0) Mean Corpuscular Volume 87 FL (80-99) Mean Corpuscular Hemoglobin 28.1 PG (27.0-31.0) Mean Corpuscular Hemoglobin Concent 32.3 G/DL (32.0-36.0) Red Cell Distribution Width 13.2 % (11.6-14.8) Platelet Count 317 K/UL (150-450) Mean Platelet Volume 6.3 FL (6.5-10.1) L Neutrophils (%) (Auto) 59.1 % (45.0-75.0) Lymphocytes (%) (Auto) 30.5 % (20.0-45.0) Monocytes (%) (Auto) 6.1 % (1.0-10.0) Eosinophils (%) (Auto) 2.5 % (0.0-3.0) Basophils (%) (Auto) 1.9 % (0.0-2.0) Erythrocyte Sedimentation Rate 25 MM/HR (0-30) Sodium Level 138 MMOL/L (136-145) Potassium Level 3.8 MMOL/L (3.5-5.1) Chloride Level 103 MMOL/L (98-107) Carbon Dioxide Level 25 MMOL/L (21-32) Anion Gap 10 mmol/L (5-15) Blood Urea Nitrogen 5 mg/dL (7-18) L Creatinine 0.7 MG/DL (0.55-1.30) Estimat Glomerular Filtration Rate > 60 mL/min (>60) Glucose Level 127 MG/DL (74-106) H Calcium Level 8.9 MG/DL (8.5-10.1) Total Bilirubin 0.3 MG/DL (0.2-1.0) Aspartate Amino Transf (AST/SGOT) 17 U/L (15-37) Alanine Aminotransferase (ALT/SGPT) 21 U/L (12-78) Alkaline Phosphatase 70 U/L (46-116) C-Reactive Protein, Quantitative 2.7 mg/dL (0.00-0.90) H Total Protein 7.2 G/DL (6.4-8.2) Albumin 3.5 G/DL (3.4-5.0) Globulin 3.7 g/dL Albumin/Globulin Ratio 0.9 (1.0-2.7) L Current Medications Medications (Trade) Dose Ordered Sig/Bogdan Route PRN Reason Start Time Stop Time Status Last Admin Dose Admin Acetaminophen/ Hydrocodone Bitart ([place] 5/325) 1 tab Q6H PRN ORAL For Pain 09/13/19 18:00 09/20/19 17:59 09/16/19 05:43 Bisacodyl (Dulcolax) 10 mg DAILY ORAL 09/14/19 18:30 12/13/19 18:29 09/16/19 08:55 Clonazepam (KlonoPIN) 0.5 mg TID ORAL 09/13/19 18:00 09/20/19 17:59 09/16/19 08:56 Docusate Sodium (Colace) 100 mg BID ORAL 09/14/19 18:30 10/14/19 18:29 09/16/19 08:55 Escitalopram Oxalate (Lexapro) 10 mg DAILY ORAL 09/14/19 11:45 10/14/19 11:44 09/16/19 08:56 Furosemide (Lasix) 20 mg DAILY ORAL 09/14/19 09:00 10/14/19 08:59 09/16/19 08:55 Gabapentin (Neurontin) 300 mg BID ORAL 09/13/19 18:00 10/13/19 17:59 09/16/19 08:55 Guaifenesin/ Dextromethorphan (Robitussin DM Syrup) 10 ml Q8H PRN ORAL For Cough 09/13/19 18:00 12/12/19 17:59 Heparin Sodium (Porcine) (Heparin 5000 units/ml) 5,000 units EVERY 12 HOURS SUBQ 09/13/19 21:00 10/28/19 20:59 09/16/19 09:07 Hydralazine HCl (Apresoline) 100 mg TID ORAL 09/13/19 18:00 12/12/19 17:59 09/16/19 08:55 Lorazepam (Ativan) 1 mg Q6H PRN ORAL ANXIETY 09/14/19 12:00 09/21/19 11:59 09/15/19 05:55 Magnesium Hydroxide (Mom) 30 ml Q4H PRN ORAL Constipation 09/14/19 18:15 10/14/19 18:14 Nifedipine (Procardia XL) 90 mg DAILY ORAL 09/14/19 09:00 10/14/19 08:59 09/16/19 08:55 Oxybutynin Chloride (Ditropan) 5 mg BID ORAL 09/13/19 18:00 10/13/19 17:59 09/16/19 08:56 Sennosides (Senokot) 8.6 mg DAILYPRN PRN ORAL Constipation 09/14/19 18:15 10/14/19 18:14 Sitagliptin Phosphate (Januvia) 100 mg DAILY ORAL 09/14/19 09:00 10/14/19 08:59 09/16/19 08:55 Trihexyphenidyl HCl (Artane) 2 mg THREE TIMES A DAY ORAL 09/13/19 18:00 10/13/19 17:59 09/16/19 08:55 Vancomycin HCl (Vanco pharmacy to dose) 1 ea DAILY PRN MISC Per rx protocol 09/14/19 12:30 10/14/19 12:29 Vancomycin/Sodium Chloride 275 ml @ 183.333 mls/hr Q8H IVPB 09/15/19 17:00 09/20/19 16:59 09/16/19 09:09 Pavel Britt MD Sep 16, 2019 11:29
[2019-09-16 12:00] VITALS: BP 120/67
--- NOTE | 2019-09-16 14:17 | Surgery Progress Note ---
Surgery Progress Note Subjective Symptoms: improved, tolerating diet, passing flatus, BM, pain decreased Objective Last 24 Hour Vital Signs Date Time Temp Pulse Resp B/P (MAP) Pulse Ox O2 Delivery O2 Flow Rate FiO2 09/16/19 13:32 120/67 09/16/19 12:00 96.6 78 20 120/67 (84) 96 09/16/19 09:00 Room Air 09/16/19 08:55 79 130/61 09/16/19 08:55 130/61 09/16/19 08:00 97.7 79 20 130/61 (84) 96 09/16/19 04:00 96.8 84 20 142/76 (98) 93 09/16/19 00:00 97.7 87 24 145/74 (97) 93 09/15/19 21:00 Room Air 09/15/19 20:00 97.7 90 22 117/50 (72) 97 09/15/19 17:03 136/69 09/15/19 16:28 97.7 09/15/19 16:00 97.7 87 20 136/69 (91) 95 I&O Intake and Output 09/15/19 09/16/19 19:00 07:00 Intake Total 783.333 ml 549.999 ml Balance 783.333 ml 549.999 ml Intake Oral 600 ml IV Total 183.333 ml 549.999 ml # Voids 4 10 # Bowel Movements 1 Dressing: dry Wound: clean Cardiovascular: RSR Respiratory: clear Abdomen: soft, non-tender, present bowel sounds Extremities: edema, no tenderness, no cyanosis Laboratory Tests Test 09/15/19 14:30 09/16/19 05:31 Vancomycin Level Trough 8.2 ug/mL (5.0-12.0) White Blood Count 8.2 K/UL (4.8-10.8) Red Blood Count 4.56 M/UL (4.20-5.40) Hemoglobin 12.8 G/DL (12.0-16.0) Hematocrit 39.8 % (37.0-47.0) Mean Corpuscular Volume 87 FL (80-99) Mean Corpuscular Hemoglobin 28.1 PG (27.0-31.0) Mean Corpuscular Hemoglobin Concent 32.3 G/DL (32.0-36.0) Red Cell Distribution Width 13.2 % (11.6-14.8) Platelet Count 317 K/UL (150-450) Mean Platelet Volume 6.3 FL (6.5-10.1) L Neutrophils (%) (Auto) 59.1 % (45.0-75.0) Lymphocytes (%) (Auto) 30.5 % (20.0-45.0) Monocytes (%) (Auto) 6.1 % (1.0-10.0) Eosinophils (%) (Auto) 2.5 % (0.0-3.0) Basophils (%) (Auto) 1.9 % (0.0-2.0) Erythrocyte Sedimentation Rate 25 MM/HR (0-30) Sodium Level 138 MMOL/L (136-145) Potassium Level 3.8 MMOL/L (3.5-5.1) Chloride Level 103 MMOL/L (98-107) Carbon Dioxide Level 25 MMOL/L (21-32) Anion Gap 10 mmol/L (5-15) Blood Urea Nitrogen 5 mg/dL (7-18) L Creatinine 0.7 MG/DL (0.55-1.30) Estimat Glomerular Filtration Rate > 60 mL/min (>60) Glucose Level 127 MG/DL (74-106) H Calcium Level 8.9 MG/DL (8.5-10.1) Total Bilirubin 0.3 MG/DL (0.2-1.0) Aspartate Amino Transf (AST/SGOT) 17 U/L (15-37) Alanine Aminotransferase (ALT/SGPT) 21 U/L (12-78) Alkaline Phosphatase 70 U/L (46-116) C-Reactive Protein, Quantitative 2.7 mg/dL (0.00-0.90) H Total Protein 7.2 G/DL (6.4-8.2) Albumin 3.5 G/DL (3.4-5.0) Globulin 3.7 g/dL Albumin/Globulin Ratio 0.9 (1.0-2.7) L Plan Problems: (1) Ulcerative colitis (2) Cellulitis Assessment & Plan: Pt Presented on admission with Ulcerations ,Edemae bilat lower ext. Pt is grossly unkempt. Proper hygiene rendered prior to assessing wounds. Multiple islands of ulcerations with erythematous bridges noted to rishabh,medial and lateral R tibia. Large ulcer with irregular shaped borders posterior R tibia.mixed slough and necrosis noted with marginal erythema along edges. Haemosiderin noted to RLE. Ulcer with 100% slough L tibia with surrounding Haemosiderin. Ulcer Lateral L tibia with 100% slough at base Both lower ext noted to be weepingnon-odorous serous exudate. Bilat rocker foot bottom deformities of feet.Toes aere clubbed both feet. Pt stated unable to walk recently secondary to pain in both feet. Pt educated of risks vs benefits to proper hygiene and inspecting feet daily. Advised to wear supportive shoes. Encouraged to elevate legs while in bed or sitting. Wounds cleansed with Saline. Xeroform gauze applied to wounds and both lower ext wrapped with Kerlix from base of toes to mid-calves. Recommendations: Cleanse both lower ext with Saline. Cover wounds with Xeroform Gauze . Apply ABD Pads and wrap both lower ext with kerlix from base of toes both feet Daily and prn. (3) HTN (hypertension) (4) Thyroid disease (5) History of colon polyps (6) DMII (diabetes mellitus, type 2) (7) Depression (8) Rash (9) Hyponatremia (10) Sleep apnea (11) Colonoscopy planned Ethan Lee Sep 16, 2019 14:17
--- NOTE | 2019-09-16 15:27 | NUR ---
CASE MANAGEMENT:REVIEW SI;RLE CELLULITIS. DM. 96.6 84 20 142/76 93% ON RA BG 127 CRP 2.7 IS;AMOXICILLIN PO Q8 LASIX PO QD JANUVIA PO QD HEPARIN SUBQ Q12 HYDRALAZINE PO TID MED SURG STATUS DCP;FROM [facility] PLAN;PT EVAL DC TO [facility] WHEN STABLE
--- NOTE | 2019-09-16 15:42 | NUR ---
P.T Note: P.T evaluation completed and tx initiated. Please refer to P.T evaluation for current functional status.
[2019-09-16 16:00] VITALS: BP 119/64
--- NOTE | 2019-09-16 19:14 | NUR ---
HAND-OFF: Report given to Franky MELCHOR.
--- NOTE | 2019-09-16 19:46 | NUR ---
NURSE NOTES: Report received from Keyon MELCHOR. Patient is awake and alert x 3. Patient is noted to be on room air. Denies chest pain and shortness of breath at this time. Patient has complaints of chronic back pain. Franky MELCHOR educated the patient on when pain medication is due next. Patient is noted to have bilateral leg swelling due to cellulitis. Patient is noted to have right hand 20 arlette IV access. Patient is noted to have bedside commode that was endorsed to Franky MELCHOR she is able to use with minimal assistance. Bed is locked, alarmed, and in lowest position. Call light in reach. Will continue to follow plan of care.
[2019-09-16 20:00] VITALS: BP 134/73
--- NOTE | 2019-09-16 20:52 | General Progress Note ---
Assessment/Plan Problem List: (1) DMII (diabetes mellitus, type 2) ICD Codes: E11.9 - Type 2 diabetes mellitus without complications SNOMED: 44767231 (2) HTN (hypertension) ICD Codes: I10 - Essential (primary) hypertension SNOMED: 38510998 (3) Thyroid disease ICD Codes: E07.9 - Disorder of thyroid, unspecified SNOMED: 28163209 (4) History of colon polyps ICD Codes: Z86.010 - Personal history of colonic polyps SNOMED: 063807394 (5) Ulcerative colitis ICD Codes: K51.90 - Ulcerative colitis, unspecified, without complications SNOMED: 31291782 (6) Cellulitis ICD Codes: L03.90 - Cellulitis, unspecified SNOMED: 180765048 Qualifiers: Qualified Codes: L03.115 - Cellulitis of right lower limb Status: progressing Assessment/Plan: cellulitis of leg is same afebrile wound care sugar improving obesity dm Subjective Allergies: Coded Allergies: METRONIDAZOLE (Unverified Allergy, Severe, 04/14/17) vomiting, rash SULFA (SULFONAMIDE ANTIBIOTICS) (Unverified Allergy, Severe, 07/24/17) RASH ALL OVER THE BODY, SWELLING SULFAMETHOXAZOLE (Unverified Allergy, Unknown, 11/25/17) TRIMETHOPRIM (Unverified Allergy, Unknown, 11/25/17) Uncoded Allergies: SULFANOMIDES (Allergy, Unknown, 09/13/19) Objective Last 24 Hour Vital Signs Date Time Temp Pulse Resp B/P (MAP) Pulse Ox O2 Delivery O2 Flow Rate FiO2 09/16/19 17:27 119/64 09/16/19 16:00 97.7 75 20 119/64 (82) 96 09/16/19 13:32 120/67 09/16/19 12:00 96.6 78 20 120/67 (84) 96 09/16/19 09:00 Room Air 09/16/19 08:55 79 130/61 09/16/19 08:55 130/61 09/16/19 08:00 97.7 79 20 130/61 (84) 96 09/16/19 04:00 96.8 84 20 142/76 (98) 93 09/16/19 00:00 97.7 87 24 145/74 (97) 93 09/15/19 21:00 Room Air Intake and Output 09/15/19 09/16/19 19:00 07:00 Intake Total 783.333 ml 549.999 ml Balance 783.333 ml 549.999 ml Intake Oral 600 ml IV Total 183.333 ml 549.999 ml # Voids 4 10 # Bowel Movements 1 Laboratory Tests 09/16/19 05:31: White Blood Count 8.2, Red Blood Count 4.56, Hemoglobin 12.8, Hematocrit 39.8, Mean Corpuscular Volume 87, Mean Corpuscular Hemoglobin 28.1, Mean Corpuscular Hemoglobin Concent 32.3, Red Cell Distribution Width 13.2, Platelet Count 317, Mean Platelet Volume 6.3L, Neutrophils (%) (Auto) 59.1, Lymphocytes (%) (Auto) 30.5, Monocytes (%) (Auto) 6.1, Eosinophils (%) (Auto) 2.5, Basophils (%) (Auto ) 1.9, Erythrocyte Sedimentation Rate 25, Sodium Level 138, Potassium Level 3.8 , Chloride Level 103, Carbon Dioxide Level 25, Anion Gap 10, Blood Urea Nitrogen 5L, Creatinine 0.7, Estimat Glomerular Filtration Rate > 60, Glucose Level 127H, Calcium Level 8.9, Total Bilirubin 0.3, Aspartate Amino Transf (AST/ SGOT) 17, Alanine Aminotransferase (ALT/SGPT) 21, Alkaline Phosphatase 70, C- Reactive Protein, Quantitative 2.7H, Total Protein 7.2, Albumin 3.5, Globulin 3.7, Albumin/Globulin Ratio 0.9L Height (Feet): 5 Height (Inches): 6.00 Weight (Pounds): 268 aJy Vasquez MD Sep 16, 2019 20:51
--- NOTE | 2019-09-16 23:33 | Psych Consult Progress Note ---
Psychiatry Progress Note Psychiatry Progress Note Subjective the pt is irritable depressed low energy Medications Current Medications Medications (Trade) Dose Ordered Sig/Bogdan Route PRN Reason Start Time Stop Time Status Last Admin Dose Admin Acetaminophen/ Hydrocodone Bitart ([place] 5/325) 1 tab Q6H PRN ORAL For Pain 09/13/19 18:00 09/20/19 17:59 09/16/19 20:06 Amoxicillin (Amoxil) 500 mg EVERY 8 HOURS ORAL 09/16/19 14:00 09/23/19 13:59 09/16/19 22:54 Bisacodyl (Dulcolax) 10 mg DAILY ORAL 09/14/19 18:30 12/13/19 18:29 09/16/19 08:55 Clonazepam (KlonoPIN) 0.5 mg TID ORAL 09/13/19 18:00 09/20/19 17:59 09/16/19 17:28 Docusate Sodium (Colace) 100 mg BID ORAL 09/14/19 18:30 10/14/19 18:29 09/16/19 17:28 Escitalopram Oxalate (Lexapro) 10 mg DAILY ORAL 09/14/19 11:45 10/14/19 11:44 09/16/19 08:56 Furosemide (Lasix) 20 mg DAILY ORAL 09/14/19 09:00 10/14/19 08:59 09/16/19 08:55 Gabapentin (Neurontin) 300 mg BID ORAL 09/13/19 18:00 10/13/19 17:59 09/16/19 17:27 Guaifenesin/ Dextromethorphan (Robitussin DM Syrup) 10 ml Q8H PRN ORAL For Cough 09/13/19 18:00 12/12/19 17:59 Heparin Sodium (Porcine) (Heparin 5000 units/ml) 5,000 units EVERY 12 HOURS SUBQ 09/13/19 21:00 10/28/19 20:59 09/16/19 20:06 Hydralazine HCl (Apresoline) 100 mg TID ORAL 09/13/19 18:00 12/12/19 17:59 09/16/19 17:27 Lorazepam (Ativan) 1 mg Q6H PRN ORAL ANXIETY 09/14/19 12:00 09/21/19 11:59 09/15/19 05:55 Magnesium Hydroxide (Mom) 30 ml Q4H PRN ORAL Constipation 09/14/19 18:15 10/14/19 18:14 Nifedipine (Procardia XL) 90 mg DAILY ORAL 09/14/19 09:00 10/14/19 08:59 09/16/19 08:55 Oxybutynin Chloride (Ditropan) 5 mg BID ORAL 09/13/19 18:00 10/13/19 17:59 09/16/19 17:28 Sennosides (Senokot) 8.6 mg DAILYPRN PRN ORAL Constipation 09/14/19 18:15 10/14/19 18:14 Sitagliptin Phosphate (Januvia) 100 mg DAILY ORAL 09/14/19 09:00 10/14/19 08:59 09/16/19 08:55 Trihexyphenidyl HCl (Artane) 2 mg THREE TIMES A DAY ORAL 09/13/19 18:00 10/13/19 17:59 09/16/19 17:27 Allergies: Coded Allergies: METRONIDAZOLE (Unverified Allergy, Severe, 04/14/17) vomiting, rash SULFA (SULFONAMIDE ANTIBIOTICS) (Unverified Allergy, Severe, 07/24/17) RASH ALL OVER THE BODY, SWELLING SULFAMETHOXAZOLE (Unverified Allergy, Unknown, 11/25/17) TRIMETHOPRIM (Unverified Allergy, Unknown, 11/25/17) Uncoded Allergies: SULFANOMIDES (Allergy, Unknown, 09/13/19) Objective Data Height (Feet): 5 Height (Inches): 6.00 Weight (Pounds): 268 General Appearance: WD/WN, no apparent distress, alert, alert oriented x3 Appearance: no abnormalities noted Behavior Mannerisms: good eye contact Mental Status Exam - Affect: blunted Mental Status Exam - Mood: depressed, irritable, anxious Speech: clear Mental Status Exam - Thought P: goal-directed Mental Status Exam - Suicidal: not present Assessment/Plan Problem List: (1) Depression Assessment & Plan: anxiety do lexapro 10mg po qam klonopin provided ro/st ICD Codes: F32.9 - Major depressive disorder, single episode, unspecified SNOMED: 98532194 Status: progressing Dion Meza MD Sep 16, 2019 23:33
[2019-09-17] VITALS: BP 128/66
[2019-09-17 04:00] VITALS: BP 126/61
--- NOTE | 2019-09-17 07:36 | NUR ---
HAND-OFF: Report given to Dontrell RN. Patient is currently in stable condition.
[2019-09-17 08:00] VITALS: BP 150/93
--- NOTE | 2019-09-17 08:03 | NUR ---
NURSE NOTES: Report received from JILL Wilkins. Patient is awake and alert x 3, noted to be on room air. Denies chest pain and shortness of breath at this time. Patient has complaints of chronic back pain. RN informed scheduled pain medication. Patient is noted to have bilateral leg swelling due to cellulitis. Patient is noted to have right hand 20 arlette IV access. Patient is able to ambulate to use bedside commode. RN educated and instructed patient to use call light if patient plans to ambulate to use commode or walk around the room if patient feels dizzy or weak. Bed locked and placed in lowest position, bed alarm turned on for safety measures. Call light within reach. Will continue to monitor
[2019-09-17] MEDS: HydrALAZINE 50mg tab ORAL SCH ×3 (08:41→17:15)
[2019-09-17] MEDS: Docusate 100mg cap ORAL SCH ×2 (08:42→17:16)
[2019-09-17] MEDS: Trihexyphenidyl 2mg tab ORAL SCH ×3 (08:42→17:15)
[2019-09-17] MEDS: clonazePAM 0.5mg tab ORAL SCH ×3 (08:42→17:16)
[2019-09-17] MEDS: Bisacodyl EC 5mg tab ORAL SCH (08:42)
[2019-09-17] MEDS: Oxybutynin 5mg tab ORAL SCH ×2 (08:43→17:15)
[2019-09-17] MEDS: HYDROcodone/Acetamin 5/325 tab ORAL PRN ×2 (08:43→20:13)
[2019-09-17] MEDS: Heparin 5000 units/ml inj SUBQ SCH ×2 (08:46→20:20)
[2019-09-17 12:00] VITALS: BP 130/70
--- NOTE | 2019-09-17 12:23 | Surgery Progress Note ---
Surgery Progress Note Subjective Additional Comments No acute events. Comfortable. Arrange for physical therapy and seen and cleared.. No nausea vomiting fever chills. Psych input appreciated Objective Last 24 Hour Vital Signs Date Time Temp Pulse Resp B/P (MAP) Pulse Ox O2 Delivery O2 Flow Rate FiO2 09/17/19 12:14 130/75 09/17/19 09:00 Room Air 09/17/19 08:41 87 150/93 09/17/19 08:41 150/93 09/17/19 08:00 98.6 87 20 150/93 (112) 94 09/17/19 04:00 97.3 84 18 126/61 (82) 94 09/17/19 00:00 97.8 70 20 128/66 (86) 97 09/16/19 21:00 Room Air 09/16/19 20:00 98.0 74 20 134/73 (93) 95 09/16/19 17:27 119/64 09/16/19 16:00 97.7 75 20 119/64 (82) 96 09/16/19 13:32 120/67 I&O Intake and Output 09/16/19 09/17/19 19:00 07:00 Intake Total 600 ml 360 ml Balance 600 ml 360 ml Intake Oral 600 ml 360 ml # Voids 4 3 # Bowel Movements 1 Dressing: dry Wound: clean Cardiovascular: RSR Respiratory: clear Abdomen: soft, non-tender, present bowel sounds Extremities: edema, no tenderness, no cyanosis, pulses Plan Problems: (1) Ulcerative colitis (2) Cellulitis Assessment & Plan: Pt Presented on admission with Ulcerations ,Edemae bilat lower ext. Pt is grossly unkempt. Proper hygiene rendered prior to assessing wounds. Multiple islands of ulcerations with erythematous bridges noted to rishabh,medial and lateral R tibia. Large ulcer with irregular shaped borders posterior R tibia.mixed slough and necrosis noted with marginal erythema along edges. Haemosiderin noted to RLE. Ulcer with 100% slough L tibia with surrounding Haemosiderin. Ulcer Lateral L tibia with 100% slough at base Both lower ext noted to be weepingnon-odorous serous exudate. Bilat rocker foot bottom deformities of feet.Toes aere clubbed both feet. Pt stated unable to walk recently secondary to pain in both feet. Pt educated of risks vs benefits to proper hygiene and inspecting feet daily. Advised to wear supportive shoes. Encouraged to elevate legs while in bed or sitting. Wounds cleansed with Saline. Xeroform gauze applied to wounds and both lower ext wrapped with Kerlix from base of toes to mid-calves. Recommendations: Cleanse both lower ext with Saline. Cover wounds with Xeroform Gauze . Apply ABD Pads and wrap both lower ext with kerlix from base of toes both feet Daily and prn. \diet as tolerated walker prn okay to ambulate elevate legs when in bed (3) HTN (hypertension) (4) Thyroid disease (5) History of colon polyps (6) DMII (diabetes mellitus, type 2) (7) Depression (8) Rash (9) Hyponatremia (10) Sleep apnea (11) Colonoscopy planned Ethan Lee Sep 17, 2019 12:23
[2019-09-17 16:00] VITALS: BP 156/78
--- NOTE | 2019-09-17 19:28 | NUR ---
HAND-OFF: Report given to JILL Hernández.
--- NOTE | 2019-09-17 19:40 | NUR ---
NURSE Received report from Dontrell RN. The patient is alert and oriented x3 but has episodes of confusion and disorientation also noted. She is on Room air with resp even and unlabored and the bilateral lung sounds clear on auscultation.The Patient has bilateral leg swelling due to cellulitis. Patient is noted to have right hand 20 arlette IV access. Patient has a bedside commode with limited assistance needed. Bed locked and placed in lowest position, bed alarm turned on for safety measures. Call light within reach. Will continue to monitor
[2019-09-17 20:00] VITALS: BP 116/64
[2019-09-17] MEDS: LORazepam 1mg tab ORAL PRN (21:14)
--- NOTE | 2019-09-17 21:51 | General Progress Note ---
Assessment/Plan Problem List: (1) DMII (diabetes mellitus, type 2) ICD Codes: E11.9 - Type 2 diabetes mellitus without complications SNOMED: 45489656 (2) HTN (hypertension) ICD Codes: I10 - Essential (primary) hypertension SNOMED: 40459345 (3) Thyroid disease ICD Codes: E07.9 - Disorder of thyroid, unspecified SNOMED: 06602158 (4) History of colon polyps ICD Codes: Z86.010 - Personal history of colonic polyps SNOMED: 169895988 (5) Ulcerative colitis ICD Codes: K51.90 - Ulcerative colitis, unspecified, without complications SNOMED: 49875288 (6) Cellulitis ICD Codes: L03.90 - Cellulitis, unspecified SNOMED: 811919786 Qualifiers: Qualified Codes: L03.115 - Cellulitis of right lower limb Status: progressing Assessment/Plan: diabetic cellulitis is improving iv abx per id sugar improving obesity dm Subjective ROS Limited/Unobtainable: Yes Allergies: Coded Allergies: METRONIDAZOLE (Unverified Allergy, Severe, 04/14/17) vomiting, rash SULFA (SULFONAMIDE ANTIBIOTICS) (Unverified Allergy, Severe, 07/24/17) RASH ALL OVER THE BODY, SWELLING SULFAMETHOXAZOLE (Unverified Allergy, Unknown, 11/25/17) TRIMETHOPRIM (Unverified Allergy, Unknown, 11/25/17) Uncoded Allergies: SULFANOMIDES (Allergy, Unknown, 09/13/19) Objective Last 24 Hour Vital Signs Date Time Temp Pulse Resp B/P (MAP) Pulse Ox O2 Delivery O2 Flow Rate FiO2 09/17/19 20:00 97.3 89 20 116/64 (81) 95 09/17/19 17:15 156/78 09/17/19 16:00 98.0 79 18 156/78 (104) 97 09/17/19 12:14 130/75 09/17/19 12:00 98.2 77 18 130/70 (90) 97 09/17/19 09:00 Room Air 09/17/19 08:41 87 150/93 09/17/19 08:41 150/93 09/17/19 08:00 98.6 87 20 150/93 (112) 94 09/17/19 04:00 97.3 84 18 126/61 (82) 94 7/25/20 00:00 97.8 70 20 128/66 (86) 97 Intake and Output 09/16/19 09/17/19 19:00 07:00 Intake Total 600 ml 360 ml Balance 600 ml 360 ml Intake Oral 600 ml 360 ml # Voids 4 3 # Bowel Movements 1 Height (Feet): 5 Height (Inches): 6.00 Weight (Pounds): 268 Jay Vasquez MD Sep 17, 2019 21:51
[2019-09-18] VITALS: BP 115/58
[2019-09-18 04:00] VITALS: BP 158/93
--- NOTE | 2019-09-18 04:40 | NUR ---
NURSE NOTES: The patient has continuos agitations and inability to relax. She was given Ativan as indicated and she was able to relaxed.The resp is even and unlabored and the bilateral sound clear on auscultation. Will continue to monitor
--- NOTE | 2019-09-18 07:24 | NUR ---
HAND-OFF: Report given to zeb HERRERA.
--- NOTE | 2019-09-18 07:35 | NUR ---
NURSE NOTES: RECEIVED PATIENT A/A/OX3, FORGETFULNESS. SITTING ON THE EDGE OF THE BED. NO ACUTE CARDIO-RESP DISTRESS NOTED. TOLERATING FOOD INTAKE WELL. BED IS IN THE LOWEST POSITION. SIDERAILS ARE UPX3, CALL LIGHT IS WITHIN REACH. WILL CONT TO MONITOR.
[2019-09-18 08:00] VITALS: BP 138/99
[2019-09-18] MEDS: Docusate 100mg cap ORAL SCH ×2 (08:25→17:12)
[2019-09-18] MEDS: HYDROcodone/Acetamin 5/325 tab ORAL PRN ×3 (08:26→21:32)
[2019-09-18] MEDS: Oxybutynin 5mg tab ORAL SCH ×2 (08:27→17:12)
[2019-09-18] MEDS: Trihexyphenidyl 2mg tab ORAL SCH ×3 (08:27→17:12)
[2019-09-18] MEDS: Bisacodyl EC 5mg tab ORAL SCH (08:27)
[2019-09-18] MEDS: HydrALAZINE 50mg tab ORAL SCH ×3 (08:28→17:12)
[2019-09-18] MEDS: clonazePAM 0.5mg tab ORAL SCH ×3 (08:28→17:12)
[2019-09-18] MEDS: Heparin 5000 units/ml inj SUBQ SCH ×2 (08:32→21:30)
--- NOTE | 2019-09-18 09:38 | NUR ---
RD ASSESSMENT & RECOMMENDATIONS SEE CARE ACTIVITY FOR COMPLETE ASSESSMENT DAILY ESTIMATED NEEDS: Needs based on Obese, pulmonary, wounds 78kg abw 20-25 kcals/kg [id number] total kcals 1.25-1.5 g protein/kg 98-117 g total protein Fluid per MD, on lasix mL/kg total fluid mLs NUTRITION DIAGNOSIS: Obese, etiology unknown, as evidenced by BMI >40, pt is 191% of odeal body weight. CURRENT DIET:CCHO MED, ms chopped PO DIET RECOMMENDATIONS: CCHO LOW, CARDIAC / texture as tolerated or per [employer]ER ADDITIONAL RECOMMENDATIONS: 1) Updated labs as able 2) On lasix, monitor lytes 3) Wound care: add DILIA BID + Vit C 250mg qdaily 4) Obtain a standing scale wt as able
--- NOTE | 2019-09-18 10:26 | NUR ---
CHARGE NURSE NOTE: BLE vascular ulcers are improving. Dressing changes were done, using aseptic technique. Pt tolerated procedure well. BLE elevated.
--- NOTE | 2019-09-18 10:54 | NUR ---
NURSE NOTES: CALLED [facility] AND SPOKE WITH VALDEMAR FOR HD SCHED TOMORROW. AWAITING FOR A CALLBACK FROM HD NURSE FOR CONFIRMATION. WILL CONT TO MONITOR.
[2019-09-18 12:07] VITALS: BP 157/70
--- NOTE | 2019-09-18 12:10 | Surgery Progress Note ---
Surgery Progress Note Subjective Symptoms: improved, tolerating diet, voiding well, passing flatus, BM Objective Last 24 Hour Vital Signs Date Time Temp Pulse Resp B/P (MAP) Pulse Ox O2 Delivery O2 Flow Rate FiO2 09/18/19 12:07 97.3 83 18 157/70 (99) 96 09/18/19 09:00 Room Air 09/18/19 08:56 97.7 09/18/19 08:28 138/99 09/18/19 08:26 68 138/99 09/18/19 08:00 97.5 68 18 138/99 (112) 96 09/18/19 04:00 97.7 81 19 158/93 (114) 98 09/18/19 00:00 98.6 84 21 115/58 (77) 96 09/17/19 21:00 Room Air 09/17/19 20:00 97.3 89 20 116/64 (81) 95 09/17/19 17:15 156/78 09/17/19 16:00 98.0 79 18 156/78 (104) 97 09/17/19 12:14 130/75 I&O Intake and Output 09/17/19 09/18/19 19:00 07:00 Intake Total 700 ml 1200 ml Output Total 1350 ml Balance 700 ml -150 ml Intake Oral 700 ml 1200 ml Output Urine Total 1350 ml # Voids 4 3 Dressing: dry Wound: clean Cardiovascular: RSR Respiratory: clear Abdomen: soft, non-tender, present bowel sounds Extremities: edema, no tenderness, no cyanosis, pulses, other Plan Problems: (1) Ulcerative colitis (2) Cellulitis Assessment & Plan: Pt Presented on admission with Ulcerations ,Edemae bilat lower ext. Pt is grossly unkempt. Proper hygiene rendered prior to assessing wounds. Multiple islands of ulcerations with erythematous bridges noted to rishabh,medial and lateral R tibia. Large ulcer with irregular shaped borders posterior R tibia.mixed slough and necrosis noted with marginal erythema along edges. Haemosiderin noted to RLE. Ulcer with 100% slough L tibia with surrounding Haemosiderin. Ulcer Lateral L tibia with 100% slough at base Both lower ext noted to be weepingnon-odorous serous exudate. Bilat rocker foot bottom deformities of feet.Toes aere clubbed both feet. Pt stated unable to walk recently secondary to pain in both feet. Pt educated of risks vs benefits to proper hygiene and inspecting feet daily. Advised to wear supportive shoes. Encouraged to elevate legs while in bed or sitting. Wounds cleansed with Saline. Xeroform gauze applied to wounds and both lower ext wrapped with Kerlix from base of toes to mid-calves. Recommendations: Cleanse both lower ext with Saline. Cover wounds with Xeroform Gauze . Apply ABD Pads and wrap both lower ext with kerlix from base of toes both feet Daily and prn. \diet as tolerated walker prn okay to ambulate elevate legs when in bed (3) HTN (hypertension) (4) Thyroid disease (5) History of colon polyps (6) DMII (diabetes mellitus, type 2) (7) Depression (8) Rash (9) Hyponatremia (10) Sleep apnea (11) Colonoscopy planned Ethan Lee Sep 18, 2019 12:10
--- NOTE | 2019-09-18 12:48 | Infectious Diseases Prog Note ---
Assessment/Plan Assessment/Plan IMPRESSION: Right lower extremity cellulitis Srep group G in culture Diabetes, Morbid obesity, Hypertension, History of nicotine dependence, Depression Urinary incontinence RECOMMENDATIONS: continue PO Amoxicillin Subjective ROS Limited/Unobtainable: No Constitutional: Reports: no symptoms, other - feels better Cardiovascular: Reports: no symptoms Gastrointestinal/Abdominal: Reports: no symptoms Musculoskeletal: Reports: pain, other - in neck Allergies: Coded Allergies: METRONIDAZOLE (Unverified Allergy, Severe, 04/14/17) vomiting, rash SULFA (SULFONAMIDE ANTIBIOTICS) (Unverified Allergy, Severe, 07/24/17) RASH ALL OVER THE BODY, SWELLING SULFAMETHOXAZOLE (Unverified Allergy, Unknown, 11/25/17) TRIMETHOPRIM (Unverified Allergy, Unknown, 11/25/17) Uncoded Allergies: SULFANOMIDES (Allergy, Unknown, 09/13/19) Objective Last 24 Hour Vital Signs Date Time Temp Pulse Resp B/P (MAP) Pulse Ox O2 Delivery O2 Flow Rate FiO2 09/18/19 12:17 157/70 09/18/19 12:07 97.3 83 18 157/70 (99) 96 09/18/19 09:00 Room Air 09/18/19 08:56 97.7 09/18/19 08:28 138/99 09/18/19 08:26 68 138/99 09/18/19 08:00 97.5 68 18 138/99 (112) 96 09/18/19 04:00 97.7 81 19 158/93 (114) 98 09/18/19 00:00 98.6 84 21 115/58 (77) 96 09/17/19 21:00 Room Air 09/17/19 20:00 97.3 89 20 116/64 (81) 95 09/17/19 17:15 156/78 09/17/19 16:00 98.0 79 18 156/78 (104) 97 Height (Feet): 5 Height (Inches): 6.00 Weight (Pounds): 268 General Appearance: no acute distress HEENT: mucous membranes moist Respiratory/Chest: lungs clear Cardiovascular: normal rate Abdomen: soft, non tender Extremities: other - edema of legs Neurologic/Psychiatric: alert, oriented x 3, responsive Current Medications Medications (Trade) Dose Ordered Sig/Bogdan Route PRN Reason Start Time Stop Time Status Last Admin Dose Admin Acetaminophen/ Hydrocodone Bitart ([place] 5/325) 1 tab Q6H PRN ORAL For Pain 09/13/19 18:00 09/20/19 17:59 09/18/19 08:26 Amoxicillin (Amoxil) 500 mg EVERY 8 HOURS ORAL 09/16/19 14:00 09/23/19 13:59 09/18/19 06:22 Bisacodyl (Dulcolax) 10 mg DAILY ORAL 09/14/19 18:30 12/13/19 18:29 09/18/19 08:27 Clonazepam (KlonoPIN) 0.5 mg TID ORAL 09/13/19 18:00 09/20/19 17:59 09/18/19 12:17 Docusate Sodium (Colace) 100 mg BID ORAL 09/14/19 18:30 10/14/19 18:29 09/18/19 08:25 Escitalopram Oxalate (Lexapro) 10 mg DAILY ORAL 09/14/19 11:45 10/14/19 11:44 09/18/19 08:28 Furosemide (Lasix) 20 mg DAILY ORAL 09/14/19 09:00 10/14/19 08:59 09/18/19 08:26 Gabapentin (Neurontin) 300 mg BID ORAL 09/13/19 18:00 10/13/19 17:59 09/18/19 08:27 Guaifenesin/ Dextromethorphan (Robitussin DM Syrup) 10 ml Q8H PRN ORAL For Cough 09/13/19 18:00 12/12/19 17:59 Heparin Sodium (Porcine) (Heparin 5000 units/ml) 5,000 units EVERY 12 HOURS SUBQ 09/13/19 21:00 10/28/19 20:59 09/18/19 08:32 Hydralazine HCl (Apresoline) 100 mg TID ORAL 09/13/19 18:00 12/12/19 17:59 09/18/19 12:17 Lorazepam (Ativan) 1 mg Q6H PRN ORAL ANXIETY 09/14/19 12:00 09/21/19 11:59 09/17/19 21:14 Magnesium Hydroxide (Mom) 30 ml Q4H PRN ORAL Constipation 09/14/19 18:15 10/14/19 18:14 Nifedipine (Procardia XL) 90 mg DAILY ORAL 09/14/19 09:00 10/14/19 08:59 09/18/19 08:26 Oxybutynin Chloride (Ditropan) 5 mg BID ORAL 09/13/19 18:00 10/13/19 17:59 09/18/19 08:27 Sennosides (Senokot) 8.6 mg DAILYPRN PRN ORAL Constipation 09/14/19 18:15 10/14/19 18:14 Sitagliptin Phosphate (Januvia) 100 mg DAILY ORAL 09/14/19 09:00 10/14/19 08:59 09/18/19 08:28 Trihexyphenidyl HCl (Artane) 2 mg THREE TIMES A DAY ORAL 09/13/19 18:00 10/13/19 17:59 09/18/19 12:17 Pavel Britt MD Sep 18, 2019 12:48
[2019-09-18 16:00] VITALS: BP 145/72
--- NOTE | 2019-09-18 19:04 | NUR ---
HAND-OFF: Report given to ASTRID.
--- NOTE | 2019-09-18 19:05 | NUR ---
NURSE NOTES: Received pt awake,A&Ox4, and verbal. No sob,fever,cough and pain. Iv is intact and asymptomatic. Bed in the lowest position, locked, and call light within reach.
[2019-09-18 20:00] VITALS: BP 141/68
--- NOTE | 2019-09-18 21:16 | General Progress Note ---
Assessment/Plan Problem List: (1) DMII (diabetes mellitus, type 2) ICD Codes: E11.9 - Type 2 diabetes mellitus without complications SNOMED: 92419086 (2) HTN (hypertension) ICD Codes: I10 - Essential (primary) hypertension SNOMED: 75888929 (3) Thyroid disease ICD Codes: E07.9 - Disorder of thyroid, unspecified SNOMED: 56567439 (4) History of colon polyps ICD Codes: Z86.010 - Personal history of colonic polyps SNOMED: 838708585 (5) Ulcerative colitis ICD Codes: K51.90 - Ulcerative colitis, unspecified, without complications SNOMED: 50588708 (6) Cellulitis ICD Codes: L03.90 - Cellulitis, unspecified SNOMED: 508373852 Qualifiers: Qualified Codes: L03.115 - Cellulitis of right lower limb Status: progressing Assessment/Plan: cellulitis lower extermity sugar improving wound care chronic pain obesity dm Subjective ROS Limited/Unobtainable: Yes Allergies: Coded Allergies: METRONIDAZOLE (Unverified Allergy, Severe, 04/14/17) vomiting, rash SULFA (SULFONAMIDE ANTIBIOTICS) (Unverified Allergy, Severe, 07/24/17) RASH ALL OVER THE BODY, SWELLING SULFAMETHOXAZOLE (Unverified Allergy, Unknown, 11/25/17) TRIMETHOPRIM (Unverified Allergy, Unknown, 11/25/17) Uncoded Allergies: SULFANOMIDES (Allergy, Unknown, 09/13/19) Objective Last 24 Hour Vital Signs Date Time Temp Pulse Resp B/P (MAP) Pulse Ox O2 Delivery O2 Flow Rate FiO2 09/18/19 17:12 145/72 09/18/19 16:00 98.9 78 18 145/72 (96) 98 09/18/19 14:56 97.3 09/18/19 12:17 157/70 09/18/19 12:07 97.3 83 18 157/70 (99) 96 09/18/19 09:00 Room Air 09/18/19 08:28 138/99 09/18/19 08:26 68 138/99 09/18/19 08:00 97.5 68 18 138/99 (112) 96 09/18/19 04:00 97.7 81 19 158/93 (114) 98 09/18/19 00:00 98.6 84 21 115/58 (77) 96 Intake and Output 09/17/19 09/18/19 19:00 07:00 Intake Total 700 ml 1200 ml Output Total 1350 ml Balance 700 ml -150 ml Intake Oral 700 ml 1200 ml Output Urine Total 1350 ml # Voids 4 3 Height (Feet): 5 Height (Inches): 6.00 Weight (Pounds): 268 Jay Vasquez MD Sep 18, 2019 21:16
[2019-09-19] VITALS: BP 132/72
[2019-09-19 04:00] VITALS: BP 128/75
[2019-09-19 07:15] LABS: ANION GAP 10 mmol/L (5-15); BLOOD UREA NITROGEN 8 mg/dL (7-18); CALCIUM 9.2 MG/DL (8.5-10.1); CARBON DIOXIDE 25 MMOL/L (21-32); CHLORIDE 104 MMOL/L (98-107); CREATININE 0.7 MG/DL (0.55-1.30); POTASSIUM 3.9 MMOL/L (3.5-5.1); SODIUM 139 MMOL/L (136-145)
--- NOTE | 2019-09-19 07:20 | NUR ---
HAND-OFF: Report given to JILL Castle.
[2019-09-19 07:22] LABS: BASOPHILS % (AUTO) 1.6 % (0.0-2.0); EOSINOPHILS % (AUTO) 3.1 % (0.0-3.0); HEMATOCRIT 42.7 % (37.0-47.0); HEMOGLOBIN 13.5 G/DL (12.0-16.0); LYMPHOCYTES % (AUTO) 31.8 % (20.0-45.0); MEAN CORPUSCULAR VOLUME 88 FL (80-99); MONOCYTES % (AUTO) 10.6 % (1.0-10.0); NEUTROPHILS % (AUTO) 52.9 % (45.0-75.0); PLATELET COUNT 336 K/UL (150-450); RED BLOOD COUNT 4.85 M/UL (4.20-5.40); RED CELL DISTRIBUTION WIDTH 13.6 % (11.6-14.8); WHITE BLOOD COUNT 6.6 K/UL (4.8-10.8)
[2019-09-19 08:00] VITALS: BP 131/77
[2019-09-19] MEDS: clonazePAM 0.5mg tab ORAL SCH ×2 (08:10→12:54)
[2019-09-19] MEDS: Oxybutynin 5mg tab ORAL SCH (08:10)
[2019-09-19] MEDS: Trihexyphenidyl 2mg tab ORAL SCH ×2 (08:10→12:53)
[2019-09-19] MEDS: Docusate 100mg cap ORAL SCH (08:11)
[2019-09-19] MEDS: HydrALAZINE 50mg tab ORAL SCH ×2 (08:11→12:54)
[2019-09-19] MEDS: Bisacodyl EC 5mg tab ORAL SCH (08:12)
[2019-09-19] MEDS: Heparin 5000 units/ml inj SUBQ SCH (08:17)
[2019-09-19] MEDS: HYDROcodone/Acetamin 5/325 tab ORAL PRN ×2 (08:19→13:28)
--- NOTE | 2019-09-19 09:30 | NUR ---
NURSE NOTES: Received patient awake, alert, orientedx4, talkative, no sign of distress, c/o of back pain, HL intact and patent.On fall precaution , Bed in the lowest position, locked,both side rails up for safety, 4P's in progress, call light within reach. becki nelson
--- NOTE | 2019-09-19 10:30 | Infectious Diseases Prog Note ---
Assessment/Plan Assessment/Plan IMPRESSION: Right lower extremity cellulitis Srep group G in culture Diabetes, Morbid obesity, Hypertension, History of nicotine dependence, Depression Urinary incontinence RECOMMENDATIONS: continue PO Amoxicillin X 1 day Subjective ROS Limited/Unobtainable: Yes Constitutional: Denies: fever Allergies: Coded Allergies: METRONIDAZOLE (Unverified Allergy, Severe, 04/14/17) vomiting, rash SULFA (SULFONAMIDE ANTIBIOTICS) (Unverified Allergy, Severe, 07/24/17) RASH ALL OVER THE BODY, SWELLING SULFAMETHOXAZOLE (Unverified Allergy, Unknown, 11/25/17) TRIMETHOPRIM (Unverified Allergy, Unknown, 11/25/17) Uncoded Allergies: SULFANOMIDES (Allergy, Unknown, 09/13/19) Objective Last 24 Hour Vital Signs Date Time Temp Pulse Resp B/P (MAP) Pulse Ox O2 Delivery O2 Flow Rate FiO2 09/19/19 08:15 Room Air 09/19/19 08:11 128/75 09/19/19 08:10 72 128/75 09/19/19 08:00 98.3 75 18 131/77 (95) 98 09/19/19 04:00 98.1 72 17 128/75 (92) 97 09/19/19 00:00 98.4 74 16 132/72 (92) 96 09/18/19 21:00 Room Air 09/18/19 20:00 98.1 76 18 141/68 (92) 97 09/18/19 17:12 145/72 09/18/19 16:00 98.9 78 18 145/72 (96) 98 09/18/19 14:56 97.3 09/18/19 12:17 157/70 09/18/19 12:07 97.3 83 18 157/70 (99) 96 Height (Feet): 5 Height (Inches): 6.00 Weight (Pounds): 268 General Appearance: no acute distress HEENT: mucous membranes moist Respiratory/Chest: lungs clear Cardiovascular: normal rate Abdomen: soft, non tender Extremities: other - legs edema Skin: ulcers Neurologic/Psychiatric: other - sleeping Laboratory Tests Test 09/19/19 06:00 White Blood Count 6.6 K/UL (4.8-10.8) Red Blood Count 4.85 M/UL (4.20-5.40) Hemoglobin 13.5 G/DL (12.0-16.0) Hematocrit 42.7 % (37.0-47.0) Mean Corpuscular Volume 88 FL (80-99) Mean Corpuscular Hemoglobin 27.9 PG (27.0-31.0) Mean Corpuscular Hemoglobin Concent 31.7 G/DL (32.0-36.0) L Red Cell Distribution Width 13.6 % (11.6-14.8) Platelet Count 336 K/UL (150-450) Mean Platelet Volume 6.2 FL (6.5-10.1) L Neutrophils (%) (Auto) 52.9 % (45.0-75.0) Lymphocytes (%) (Auto) 31.8 % (20.0-45.0) Monocytes (%) (Auto) 10.6 % (1.0-10.0) H Eosinophils (%) (Auto) 3.1 % (0.0-3.0) H Basophils (%) (Auto) 1.6 % (0.0-2.0) Sodium Level 139 MMOL/L (136-145) Potassium Level 3.9 MMOL/L (3.5-5.1) Chloride Level 104 MMOL/L (98-107) Carbon Dioxide Level 25 MMOL/L (21-32) Anion Gap 10 mmol/L (5-15) Blood Urea Nitrogen 8 mg/dL (7-18) Creatinine 0.7 MG/DL (0.55-1.30) Estimat Glomerular Filtration Rate > 60 mL/min (>60) Glucose Level 137 MG/DL (74-106) H Calcium Level 9.2 MG/DL (8.5-10.1) Current Medications Medications (Trade) Dose Ordered Sig/Bogdan Route PRN Reason Start Time Stop Time Status Last Admin Dose Admin Acetaminophen/ Hydrocodone Bitart ([place] 5/325) 1 tab Q6H PRN ORAL For Pain 09/13/19 18:00 09/20/19 17:59 09/19/19 08:19 Amoxicillin (Amoxil) 500 mg EVERY 8 HOURS ORAL 09/16/19 14:00 09/23/19 13:59 09/19/19 06:02 Bisacodyl (Dulcolax) 10 mg DAILY ORAL 09/14/19 18:30 12/13/19 18:29 09/19/19 08:12 Clonazepam (KlonoPIN) 0.5 mg TID ORAL 09/13/19 18:00 09/20/19 17:59 09/19/19 08:10 Docusate Sodium (Colace) 100 mg BID ORAL 09/14/19 18:30 10/14/19 18:29 09/19/19 08:11 Escitalopram Oxalate (Lexapro) 10 mg DAILY ORAL 09/14/19 11:45 10/14/19 11:44 09/19/19 08:10 Furosemide (Lasix) 20 mg DAILY ORAL 09/14/19 09:00 10/14/19 08:59 09/19/19 08:11 Gabapentin (Neurontin) 300 mg BID ORAL 09/13/19 18:00 10/13/19 17:59 09/19/19 08:11 Guaifenesin/ Dextromethorphan (Robitussin DM Syrup) 10 ml Q8H PRN ORAL For Cough 09/13/19 18:00 12/12/19 17:59 Heparin Sodium (Porcine) (Heparin 5000 units/ml) 5,000 units EVERY 12 HOURS SUBQ 09/13/19 21:00 10/28/19 20:59 09/19/19 08:17 Hydralazine HCl (Apresoline) 100 mg TID ORAL 09/13/19 18:00 12/12/19 17:59 09/19/19 08:11 Lorazepam (Ativan) 1 mg Q6H PRN ORAL ANXIETY 09/14/19 12:00 09/21/19 11:59 09/17/19 21:14 Magnesium Hydroxide (Mom) 30 ml Q4H PRN ORAL Constipation 09/14/19 18:15 10/14/19 18:14 Nifedipine (Procardia XL) 90 mg DAILY ORAL 09/14/19 09:00 10/14/19 08:59 09/19/19 08:10 Oxybutynin Chloride (Ditropan) 5 mg BID ORAL 09/13/19 18:00 10/13/19 17:59 09/19/19 08:10 Sennosides (Senokot) 8.6 mg DAILYPRN PRN ORAL Constipation 09/14/19 18:15 10/14/19 18:14 Sitagliptin Phosphate (Januvia) 100 mg DAILY ORAL 09/14/19 09:00 8/21/20 08:59 09/19/19 08:14 Trihexyphenidyl HCl (Artane) 2 mg THREE TIMES A DAY ORAL 09/13/19 18:00 10/13/19 17:59 09/19/19 08:10 Pavel Britt MD Sep 19, 2019 10:30
--- NOTE | 2019-09-19 11:55 | Surgery Progress Note ---
Surgery Progress Note Subjective Symptoms: improved, tolerating diet, voiding well, passing flatus, BM Additional Comments resting comfortable Objective Last 24 Hour Vital Signs Date Time Temp Pulse Resp B/P (MAP) Pulse Ox O2 Delivery O2 Flow Rate FiO2 09/19/19 08:15 Room Air 09/19/19 08:11 128/75 09/19/19 08:10 72 128/75 09/19/19 08:00 98.3 75 18 131/77 (95) 98 09/19/19 04:00 98.1 72 17 128/75 (92) 97 09/19/19 00:00 98.4 74 16 132/72 (92) 96 09/18/19 21:00 Room Air 09/18/19 20:00 98.1 76 18 141/68 (92) 97 09/18/19 17:12 145/72 09/18/19 16:00 98.9 78 18 145/72 (96) 98 09/18/19 14:56 97.3 09/18/19 12:17 157/70 09/18/19 12:07 97.3 83 18 157/70 (99) 96 I&O Intake and Output 09/18/19 09/19/19 19:00 07:00 Intake Total 1440 ml 500 ml Balance 1440 ml 500 ml Intake Oral 1440 ml 500 ml # Voids 4 4 # Bowel Movements 2 1 Dressing: dry Wound: clean Cardiovascular: RSR Respiratory: clear Abdomen: soft, non-tender, present bowel sounds Extremities: edema, no tenderness, no cyanosis Laboratory Tests Test 09/19/19 06:00 White Blood Count 6.6 K/UL (4.8-10.8) Red Blood Count 4.85 M/UL (4.20-5.40) Hemoglobin 13.5 G/DL (12.0-16.0) Hematocrit 42.7 % (37.0-47.0) Mean Corpuscular Volume 88 FL (80-99) Mean Corpuscular Hemoglobin 27.9 PG (27.0-31.0) Mean Corpuscular Hemoglobin Concent 31.7 G/DL (32.0-36.0) L Red Cell Distribution Width 13.6 % (11.6-14.8) Platelet Count 336 K/UL (150-450) Mean Platelet Volume 6.2 FL (6.5-10.1) L Neutrophils (%) (Auto) 52.9 % (45.0-75.0) Lymphocytes (%) (Auto) 31.8 % (20.0-45.0) Monocytes (%) (Auto) 10.6 % (1.0-10.0) H Eosinophils (%) (Auto) 3.1 % (0.0-3.0) H Basophils (%) (Auto) 1.6 % (0.0-2.0) Sodium Level 139 MMOL/L (136-145) Potassium Level 3.9 MMOL/L (3.5-5.1) Chloride Level 104 MMOL/L (98-107) Carbon Dioxide Level 25 MMOL/L (21-32) Anion Gap 10 mmol/L (5-15) Blood Urea Nitrogen 8 mg/dL (7-18) Creatinine 0.7 MG/DL (0.55-1.30) Estimat Glomerular Filtration Rate > 60 mL/min (>60) Glucose Level 137 MG/DL (74-106) H Calcium Level 9.2 MG/DL (8.5-10.1) Plan Problems: (1) Ulcerative colitis (2) Cellulitis Assessment & Plan: Pt Presented on admission with Ulcerations ,Edemae bilat lower ext. Pt is grossly unkempt. Proper hygiene rendered prior to assessing wounds. Multiple islands of ulcerations with erythematous bridges noted to rishabh,medial and lateral R tibia. Large ulcer with irregular shaped borders posterior R tibia.mixed slough and necrosis noted with marginal erythema along edges. Haemosiderin noted to RLE. Ulcer with 100% slough L tibia with surrounding Haemosiderin. Ulcer Lateral L tibia with 100% slough at base Both lower ext noted to be weepingnon-odorous serous exudate. Bilat rocker foot bottom deformities of feet.Toes aere clubbed both feet. Pt stated unable to walk recently secondary to pain in both feet. Pt educated of risks vs benefits to proper hygiene and inspecting feet daily. Advised to wear supportive shoes. Encouraged to elevate legs while in bed or sitting. Wounds cleansed with Saline. Xeroform gauze applied to wounds and both lower ext wrapped with Kerlix from base of toes to mid-calves. Recommendations: Cleanse both lower ext with Saline. Cover wounds with Xeroform Gauze . Apply ABD Pads and wrap both lower ext with kerlix from base of toes both feet Daily and prn. diet as tolerated walker prn okay to ambulate elevate legs when in bed abx as per ID d/c planning (3) HTN (hypertension) (4) Thyroid disease (5) History of colon polyps (6) DMII (diabetes mellitus, type 2) (7) Depression (8) Rash (9) Hyponatremia (10) Sleep apnea (11) Colonoscopy planned Ethan Lee Sep 19, 2019 11:55
--- NOTE | 2019-09-19 11:58 | NUR ---
*-*DISCHARGE PLANNING*-* PATIENT HAS BEEN REFERRED TO: [facility] P: [phone] Addendum: 09/19/19 at 1305 by SAVANNAH RIOS CM DISREGARD ABOVE NOTE~~~~~ WRONG PATIENT
[2019-09-19 12:15] VITALS: BP 136/82
--- NOTE | 2019-09-19 12:31 | NUR ---
[employer] MANAGER NOTE KAREL PORTER INFORMED CM PATIENT DOES NOT WANT TO RETURN TO SNF [facility] ORIG[facility]. THIS CM S/W PATIENT AT BEDSIDE IN RE TO DISCHARGE BACK TO [facility]. PATIENT VERBALIZED AGREEMENT WITH [facility] BACK TO SNF [facility] OR[facility]. WILL CONTINUE WITH DCP BACK TO SNF.
--- NOTE | 2019-09-19 13:05 | NUR ---
*-*DISCHARGE PLANNING*-* PATIENT HAS BEEN REFERRED TO: [facility] P: [phone] S/W KATELYNN, REQUESTING COVID TEST Addendum: 09/19/19 at 1404 by MANI CASEY LVN LVN STRIPPER AND TAPER NOTE KAREL PORTER INFORMED THAT SNF IS REQUESTING A COVID RESULT PRIOR TO RETURNING TO [facility]. PER JILL PORTER HAS REQUESTED ORDER FOR RAPID COVID FROM DR RAND.
--- NOTE | 2019-09-19 15:28 | NUR ---
NURSE NOTES: Vivi from microbiology called and stated that [facility] COVID swab was notified.
--- NOTE | 2019-09-19 15:33 | NUR ---
DISCHARGE PLANNING COVID RAPID RESULT NOTED AND RESULT PROVIDED TO KATELYNN AT [facility]. PATIENT ACCEPTED TO RETURN TO [address] [facility] TRANSPORTATION SCHEDULED WITH [facility] EXT [facility] WITH ETA @ 1630 PER ELIAZAR. KAREL PORTER INFORMED AND WILL INFORM JILL LEE.
[2019-09-19 16:00] VITALS: BP 138/79
--- NOTE | 2019-09-19 17:04 | NUR ---
nurse notes discharge back to [facility]assisted living and continue home meds as ordered, patient agreed with the plan of care, notified family spoke to daughter, called and spoke to [facility] administrator, teaching reinfoced regarding home meds, [id number] discharged in stable condition with all belongings taken accompanied by ambulance personnel report given to ambulance transport with all belongings taken becki nelson
--- NOTE | 2019-09-20 12:19 | Discharge Summary ---
Discharge Summary Discharge Summary _ DATE OF ADMISSION: 09/13/2019 DATE OF DISCHARGE: 09/19/2019 DISCHARGED BY: Dr Vasquez REASON FOR ADMISSION: 59 years old female with past medical history of hypertension, DM, smoker, presented to with the right campbell swelling and redness for 3 days. She reported achy constant pain of moderate severity . No fevers or chills. No reported trauma or injury. Upon evaluation vital signs were stable. Laboratory work-up revealed mild leukocytosis, stable hemoglobin hematocrit. Stable electrolytes and renal parameters. Glucose 119. Lactic acid 1.3. CRP 1.8. ESR 27. Troponin negative. EKG revealed sinus rhythm , no acute ischemic changes. X-ray of the right tibia-fibula revealed no evidence of acute bony trauma. In emergency department patient pancultured, started on empiric antibiotic and admitted for further management. CONSULTANTS: ID specialist Dr. Britt surgery Dr. Lee psychiatrist Dr Meza [facility] COURSE: Patient admitted to medical surgical floor and started on empiric antibiotics. Rapid COVID 19 test was negative. Blood cultures were negative. Wound culture revealed Strep group G. Antibiotic optimized as per ID specialist recommendation. Surgeon seen and evaluated patient. Wound care provided as per surgeon recommendation. Patient was encouraged to elevate legs while in the bed . Surgeon cleared patient for ambulation Continue wound care [facility] assisted living. DVT prophylaxis provided. Home medication continued. Mild leukocytosis resolved. Patient was counseled on smoking cessation. Patient declined nicotine patch Psychiatric medication regimen optimized. Reality orientation and supportive therapy provided. Patient clinically stabilized and was ready for discharge back to assisted living for continuation of care. FINAL DIAGNOSES: Right lower extremity cellulitis (with strep group G by culture) Diabetes mellitus Morbid obesity Hypertension Nicotine dependency Depression DISCHARGE MEDICATIONS: See Medication Reconciliation list. DISCHARGE INSTRUCTIONS: Patient was discharged to assisted living. Follow-up with primary care provider in 1 week. I have been assigned to dictate discharge summary for this account. I was not involved in the patient's management. Deb Bonilla NP Sep 20, 2019 12:19
== END 2019-09-19 17:08 | disposition home or self-care (01) | DRG 603 ==
LOC: EDBD 11:23 → EMR 11:53 → 4E 13:45 → EDBEDREQ 14:03 → 4E 09-15 16:40 → UNDODISIN 09-19 17:16
DX: L03.115 Cellulitis of right lower limb (principal); Z68.41 Body mass index [BMI] 40.0-44.9, adult; K51.90 Ulcerative colitis, unspecified, without complications; E87.1 Hypo-osmolality and hyponatremia; B95.4 Other streptococcus as the cause of diseases classified elsewhere; F32.9 Major depressive disorder, single episode, unspecified; E66.01 Morbid (severe) obesity due to excess calories; F29 Unspecified psychosis not due to a substance or known physiological condition; Z86.010 Personal history of colon polyps; I10 Essential (primary) hypertension; Z88.1 Allergy status to other antibiotic agents; Z88.2 Allergy status to sulfonamides; E11.9 Type 2 diabetes mellitus without complications; F17.200 Nicotine dependence, unspecified, uncomplicated; R32 Unspecified urinary incontinence; E07.9 Disorder of thyroid, unspecified; G47.30 Sleep apnea, unspecified; R21 Rash and other nonspecific skin eruption
CPT/HCPCS: 36415; 80048; 80053; 80202; 83605; 84484; 85025; 85651; 86140; 87040; 87070; 87081; 87205; 96365; 96366; 99285; U0002